=== PATIENT | female | born 1930 | race Caucasian/White ===

== ENCOUNTER 2017-05-29 11:09 | Outpatient (CLI) | payer MEDICARE, MEDICAID ==
--- NOTE | 2017-05-29 13:46 | MRI ---
MRI PELVIS WITHOUT CONTRAST: INDICATIONS: History of decubitus ulcer. Concern for osteomyelitis. COMPARISON: Sacrum and coccyx radiograph dated 05/22/2017. FINDINGS: There is prominent susceptibility artifact involving the sacral decubitus ulcer overlying the lower aspect of the pelvis that limits image detail. There is suggestion of abnormal increased T2 and dim inished T1 signal involving the lower sacral segments, as well as the coccyx, suspicious for changes of underlying osteomyelitis, but this is at the base of the decubitus bed. There is fluid seen ant erior to the lower sacrum, which may reflect reactive edema. The largest collection measures 1.9 cm . There is a small fibroid uterus in place. There is extensive edema involving the musculature of the right hip, which is nonspecific and may reflect a myositis. There is subcutaneous edema overlyi ng the right hip and right gluteal region, which may reflect sequela of cellulitis. There is a 7 mm left labial fold cyst, likely reflecting a Bartholin gland cyst, seen on image 5 of series 6. IMPRESSION: 1. Heavily limited MRI of the pelvis due to susceptibility artifact, likely related to the patient' s wound care products. Metallic zinc-based ointment could also product this susceptibility artifact , which limits image detail. 2. There is suspicion for some signal abnormality seen at the base of the decubitus ulcer of the lo wer sacrum and spine, suspicious for changes of osteomyelitis. There appear to be erosive changes i nvolving the bone on the comparison sacrum and coccyx radiograph. A dedicated CT of the pelvis with out contrast may be helpful to evaluate the bony architecture of the lower sacrum and coccyx to see if osteolysis is in fact present. 3. Myositis of the right hip abductors. 4. Subcutaneous edema involving the right gluteal region, suspicious for cellulitis. POS: [facility]
== END 2017-05-29 11:10 | disposition home or self-care (01) ==
LOC: MRI 11:09
PROVIDERS: ATTEND Family Medicine
DX: L89.154 Pressure ulcer of sacral region, stage 4 (principal); D64.9 Anemia, unspecified; E87.5 Hyperkalemia; M60.88 Other myositis, other site; R60.0 Localized edema
CPT/HCPCS: 72195

== ENCOUNTER 2017-05-30 10:46 | Inpatient (IN) | payer MEDICARE, MEDICAID ==
[2017-05-30 13:27] LABS: #Basophils 0.1 thou/uL (0.0-0.2); #Eosinphils 0.1 thou/uL (0.0-0.7); #Lymphocytes 1.1 thou/uL (1.20-3.40); #Monocytes 0.9 thou/uL (0.11-0.59); #Neutrophils 12.7 thou/uL (1.40-6.50); %Basophils 0.4 % (0.0-1.0); %Eosinophils 0.9 % (0.0-10.0); %Lymphocytes 7.2 % (21.0-51.0); %Monocytes 6.3 % (0.0-10.0); Hematocrit 30.5 % (36.0-47.0); Mean Platelet Volume 5.9 fL (7.4-10.4); Red Blood Cell (RBC) Count 2.97 mill/uL (4.20-5.40); White Blood Cell (WBC) Count 14.9 thou/uL (4.8-10.8)
[2017-05-30 13:49] LABS: Lactic Acid - Sepsis 0.8 mmol/L (0.5-2.2)
[2017-05-30 13:51] LABS: Anion Gap 13 mmol/L (10-20); BUN (Urea Nitrogen) 37 mg/dL (9.8-20.1); Calc. Creatinine Clearance 0 mL/min (70-130); Calcium 9.2 mg/dL (7.8-10.44); Carbon Dioxide 28 mmol/L (23-31); Chloride 101 mmol/L (98-107); Estimated GFR-MDRD 41
[2017-05-30] MEDS ORDERED: ISOVUE-370 76%-LOCM 1 ML ONE (16:03)
--- NOTE | 2017-05-30 17:37 | CT ---
CT PELVIS WITH CONTRAST: 05/30/17 HISTORY: 86-year-old female with sacral decubitus ulcer. The MRI study was very limited because of magnetic s usceptibility artifact due to hardware. FINDINGS: There is metallic left total hip replacement hardware, which cause streak artifact, degrading the CT images of the adjacent areas. In the region of signal abnormality of the sacrum and coccyx, there a re nonspecific heterogeneous sclerotic changes on this CT. No overt bone destruction is identified. The apparent MRI bone marrow signal abnormality there was just deep to a sacral decubitus ulcer in t hat location. Since no metal is identified on this CT in that region, it is suspected that the magne tic susceptibility artifact may have been caused by metallic material on the skin surface, such as z inc ointment, or a small metallic object that may have been on the skin surface during the MRI. This CT is also limited by the fact that there is severe osteopenia. There is multilevel severe degenera tive disc disease in the lower lumbar spine. No fracture or dislocation. Degenerative changes in the right hip are relatively mild. Mild soft tissue contusion or edema in the subcutaneous fat superfic ial to the right gluteal musculature. The urinary bladder has thin, normal gilman. It is distended. There is a well circumscribed, approxi mately 3 x 4.5 x 3.5 cm, mass with heterogeneous attenuation (low density and soft tissue density), within what appears to be the fundus of uterus. There is mixed T2 signal intensity in this lesion on the pelvic MRI. This was not present on CT of the pelvis of 05/12/2006. There are no CT of the pelvi s that are more recent than this. There are also no recent ultrasound studies of the pelvis. IMPRESSION: 1. Intrauterine mass. The appearance is atypical for leiomyoma (uterine fibroid). This raises t he possibility of an endometrial carcinoma surrounded by fluid within an expanded endometrial cavity . Recommend gynecology consultation 2. No definite evidence of osteomyelitis. 3. Osteopenia. 4. Status post total left hip replacement arthroplasty. 5. Severe lumbar spondylosis. POS: [facility]
[2017-05-30] MEDS ORDERED: Ondansetron ODT 4 MG TAB PO PRN (17:54)
[2017-05-30] MEDS ORDERED: HYDROcodone/Acetaminophen 5/325 mg Tablet PO PRN (17:54)
[2017-05-30] MEDS ORDERED: HYDROcodone/Acetaminophen 10/325 mg Tablet PO PRN (17:54)
[2017-05-30] MEDS ORDERED: Acetaminophen 325 MG TAB PO PRN (17:54)
[2017-05-30 18:15] VITALS: BMI 20.6
[2017-05-30] MEDS: Sodium Chloride 0.9% 1,000 ML IV SCH (18:45)
[2017-05-30] MEDS: Piperacillin/Tazobactam 3.375 GM in Sodium Chloride 0.9% 100 ML IVPB SCH (18:50)
[2017-05-30] MEDS ORDERED: Famotidine 20 MG TAB PO SCH (21:00)
[2017-05-30] MEDS: Ketoconazole 2% Cream 15 gm Tube TOP SCH (21:14)
--- NOTE | 2017-05-30 23:27 | HP ---
PRIMARY CARE PHYSICIAN: Dr. Young. CHIEF COMPLAINT: Wound infection. HISTORY OF PRESENT ILLNESS: Ms. Khan is an 86-year-old white female with the recent active past m edical history. She was initially admitted here on 04/04/2017 to 04/18/2017 after a fall and sustai sol the left hip fracture. She went to the operating room on 04/04/2017 for ORIF, and postoperative ly was complicated by acute respiratory failure and hypotension. She was ultimately discharged on 0 04/18/2017 to [facility], but was subsequently readmitted 04/24-04/30 for UTI with sepsis . She received IV antibiotics and was discharged back to the [facility] for continued rehabilitation until current. She completed a course of levofloxacin every other day due to chronic kidney dise ase and increased creatinine. During that second hospital stay, it was noted she had an unstageable sacral decubitus ulcer. Pictu res from that stay were reviewed. She subsequently has had increased pain to the area and enlargeme nt of the wound and ultimately has had a wound VAC placed. She is unsure of how long. Workup for the VAC included x-rays done about a week ago that showed severe osteopenia and inability to really see the sacrum. So, yesterday 05/29, she underwent MRI. MRI showed a mild or slight inc reased T2 and decreased T1 signal to the lower sacrum and coccyx, as well as a 1.9 cm presacral flui d collection. She had some right hip muscular edema and there was concern for infection, so she was sent to the Emergency Department for further treatment evaluation, surgical evaluation and ID consu lt. She denies any fevers or chills, chest pain or shortness of breath, no nausea or vomiting, no d iarrhea or constipation. She has had the C. diff recently, which she completed therapy for, has not had any diarrhea since . PAST MEDICAL HISTORY: 1. Hypertension. 2. Congestive heart failure, type unknown. Diastolic chronic. Ejection fraction in 04/2017 showe d an ejection fraction of 70% to 80% and grade 1-3 diastolic dysfunction with a hyperdynamic small l eft ventricle. 3. Chronic obstructive pulmonary disease. 4. History of recent Clostridium difficile. 5. Chronic kidney disease 3. 6. Moderate protein-calorie malnutrition. 7. Atrial fibrillation, paroxysmal. PAST SURGICAL HISTORY: Include; 1. Left hip repair on 04/04/2017. 2. Appendectomy and cholecystectomy remotely. HOME MEDICATIONS: Per the chart; 1. Iron sulfate 325 mg daily. 2. Megace 40 mg daily. 3. Protonix 40 mg daily. 4. Propranolol 20 mg p.o. b.i.d. 5. Vitamin D3 50,000 units daily. 6. Vitamin C 500 mg b.i.d. ALLERGIES: 1. CODEINE causes altered mental status. 2. FLAGYL made her nauseated. 3. MACROBID unknown. 4. MORPHINE caused her to be confused. 5. PENICILLIN G caused a rash 30+ years ago. 6. SULFA is listed, but she says she can take that fine. FAMILY HISTORY: Negative for clotting or bleeding disorder, no immune dysfunction. SOCIAL HISTORY: Negative for habits x3. She did use prior tobacco, but quit many years ago. She h as been living at home alone up until this most recent set of hospital stays. REVIEW OF SYSTEMS: Ten-point review of systems was performed, negative for all other systems except as stated as per HPI. PHYSICAL EXAMINATION: VITAL SIGNS: Temperature 97.0, pulse 95, blood pressure 136/66, respiratory rate 20, satting 99% on room air. GENERAL: She is awake. She is alert. She is oriented x3. She is a frail elderly white female who appears to be in no distress. HEENT: Normocephalic, atraumatic. Pupils equal, reactive bilaterally, mucous membranes are moist. She had no visible lesion or thrush. NECK: Supple, without lymphadenopathy, JVD, or thyromegaly. CHEST: Lungs are clear. She has no wheeze, no rales, no rhonchi with good air movement and symmetr ic chest excursion. CARDIOVASCULAR: Normal S1 and S2. No S3 or S4. No audible murmurs. ABDOMEN: Soft. It is nontender, nondistended. No masses or organomegaly with normoactive bowel so unds. EXTREMITIES: No cyanosis, no clubbing with trace bilateral extremity edema. SKIN: Warm, moist and well perfused. She does have an approximately 1.2 cm x 1.2 cm open sacral pr essure ulcer. It is approximately 1.6 cm deep and has approximately 1.4 cm undermining all the way around. The base has a pale pink granulation tissue and there is no palpable bone. There is no pur ulence and no necrosis. NEUROLOGIC: Cranial nerves II-XII are grossly intact without any focal neurologic deficits and norm al strength. MUSCULOSKELETAL: Left hip incision clean, dry and intact. There is no inflammation or erythema. T here is no palpable joint effusions. Other large joints appear normal, without any inflammation or joint effusions. LABORATORY DATA: Basic metabolic profile showed a potassium of 4.8 and creatinine of 1.24, which is actually good for her. Creatinine clearance is around 40-45. Total white blood cell count 14.9 up from 10.6 yesterday. Hemoglobin is 9.6 up from 8.5 yesterday as well. Lactic acid normal at 0.8 a nd platelets of 550,000. IMAGING DATA: On 05/29/2017, MRI showed a large sacral decubitus ulcer. There is lower sacral and coccygeal, increased T2 and decreased T1 signal. There is a fluid anterior to the lower sacrum appr oximately 1.9 cm in transverse diameter and there is a right hip muscular edema. ASSESSMENT AND PLAN: 1. Stage III to IV sacral decubitus ulcer. This is actually one of the cleanest sacral ulcers I rapp ve seen in a long time. There is no foul odor, no purulence, no necrosis. I cannot palpate bone. Does not look acutely infected. At this point, I have spoken with Dr. Lux with the Radiology, we will get a CT scan with contrast to better delineate the structures present. I have removed her wou nd VAC and will leave it off in the meantime. I initially has had spoken with Dr. Rosado, but after examining the wound, I do not think there is any surgical intervention needed at this point, I will follow up on the CT scan results and revisit this issue. 2. In the meantime, the patient received vancomycin in the ER; we will start her on Zosyn 3.375 gra ms IV q.6 hours. I do realize she has a listed PENICILLIN allergy, but I think it is long enough ag o and probably of little clinical significance, but will rechallenge her. 3. Hypertension. We will continue her home medications. 4. Congestive heart failure, diastolic, currently stable. 5. Chronic obstructive pulmonary disease, stable. 6. Recent Clostridium difficile: We will watch her for signs of diarrhea while on broad-spectrum a ntibiotics. 7. Chronic kidney disease 3, creatinine is currently stable. 8. Moderate protein-calorie malnutrition: Place her on a regular diet, we will add Ensure t.i.d. w ith meals and Jb b.i.d. to promote wound healing. 9. Atrial fibrillation, currently in normal sinus rhythm.
[2017-05-31] MEDS: Piperacillin/Tazobactam 3.375 GM in Sodium Chloride 0.9% 100 ML IVPB SCH ×3 (00:45→11:58)
[2017-05-31 05:50] LABS: #Basophils 0.1 thou/uL (0.0-0.2); #Eosinphils 0.2 thou/uL (0.0-0.7); #Lymphocytes 1.1 thou/uL (1.20-3.40); #Monocytes 0.8 thou/uL (0.11-0.59); %Basophils 0.5 % (0.0-1.0); %Eosinophils 1.6 % (0.0-10.0); %Lymphocytes 10.7 % (21.0-51.0); Mean Platelet Volume 6.1 fL (7.4-10.4); Red Blood Cell (RBC) Count 2.44 mill/uL (4.20-5.40); White Blood Cell (WBC) Count 10.1 thou/uL (4.8-10.8)
[2017-05-31 05:57] LABS: Anion Gap 9 mmol/L (10-20); BUN (Urea Nitrogen) 38 mg/dL (9.8-20.1); Calc. Creatinine Clearance 27 mL/min (70-130); Calcium 8.4 mg/dL (7.8-10.44); Carbon Dioxide 28 mmol/L (23-31); Chloride 104 mmol/L (98-107); Estimated GFR-MDRD 41
[2017-05-31] MEDS: Ketoconazole 2% Cream 15 gm Tube TOP SCH (08:13)
[2017-05-31] MEDS: Sodium Chloride 0.9% 1,000 ML IV SCH (08:15)
--- NOTE | 2017-05-31 10:25 | PDOC.EVN ---
Event Note - Event Note Event Note: addendum to history and physical dated 05/30/2017. Pt initially discharged form this hospital to [facility] and developed the pressure ulcer while there. Per discussion with Pool staff today, the pressure ulcer was well developed prior to her transfer there late april 2017.
[2017-05-31 13:41] VITALS: BP 143/59; TEMP 97.5
--- NOTE | 2017-05-31 14:23 | PDOC.PN ---
- Subjective Encounter Start Date: 05/31/17 Encounter Start Time: 07:30 Subjective: feels better, no sob -: responds well to verbal questions -: says she has been amb with PT at rehab/snf - Objective Resuscitation Status: Resuscitation Status FULL:Full Resuscitation MAR Reviewed: Yes Vital Signs & Weight: Vital Signs (12 hours) Temp Pulse Resp BP BP Pulse Ox 05/31/17 13:47 86 15 96 05/31/17 12:00 97.5 F L 86 16 143/59 H 96 05/31/17 10:26 92 16 99 05/31/17 08:00 98.2 F 92 20 166/69 H 99 05/31/17 04:00 97.7 F 88 16 131/69 97 Weight Weight 112 lb 12.8 oz Result Diagrams: 05/31/17 04:37 05/31/17 04:37 Phys Exam - Physical Examination HEENT: PERRLA, moist MMs Neck: no JVD, supple Respiratory: no wheezing, no rales Cardiovascular: RRR, no significant murmur Gastrointestinal: soft, non-tender, positive bowel sounds sacral decub stage 4 Musculoskeletal: no edema, pulses present Neurological: non-focal, moves all 4 limbs Dx/Plan (1) Sacral decubitus ulcer, stage IV Code(s): L89.154 - PRESSURE ULCER OF SACRAL REGION, STAGE 4 Status: Chronic Comment: POA (2) HTN (hypertension) Code(s): I10 - ESSENTIAL (PRIMARY) HYPERTENSION Status: Chronic Qualifiers: Hypertension type: essential hypertension Qualified Code(s): I10 - Essential (primary) hypertension (3) CHF (congestive heart failure) Code(s): I50.9 - HEART FAILURE, UNSPECIFIED Status: Chronic Qualifiers: Congestive heart failure type: diastolic (4) Physical deconditioning Code(s): R53.81 - OTHER MALAISE Status: Chronic (5) recent left hip orif Status: Chronic Comment: in mar 2017 - Plan d/w , decub is clean with no need for debribedement -: to continue wound vac to ulcer -: may dc to snf/rehab -: oral iron, got iv fluids with dilutional effect, Hb of 8g -: is slowly progressing with PT, states she is amb with PT * .
--- NOTE | 2017-06-01 00:44 | DIS ---
DATE OF ADMISSION: 05/30/2017 DATE OF DISCHARGE: 05/31/2017 DISCHARGE DISPOSITION: To [facility]. PRIMARY DISCHARGE DIAGNOSES: Initial suspicion for sacral decubitus, stage IV, flareup, ruled out; initial suspicion for sepsis, ruled out. SECONDARY DISCHARGE DIAGNOSES: Hypertension; history of CHF with diastolic dysfunction; severe deco nditioning, which is resolving; recent left hip ORIF done in 03/2017; acute kidney injury, resolving ; and likely chronic anemia. PROCEDURES DONE DURING HOSPITALIZATION: The patient has had pelvic CAT scan done, which showed intr auterine mass, which was not typical of fibroids. There was no definite evidence of osteomyelitis. There was osteopenia seen, severe lumbar spondylosis was seen. Preliminary blood cultures x2, no g rowth; had a white count of 14 with discharge numbers of 10; H\T\H on the day of discharge 8 and 25; platelet count 454. Discharge BUN and creatinine 38 and 1.25. Lactic acid was 0.8. Patient has h ad pelvic MRI done prior to arrival here, which was limited due to susceptibility artifact. There w as suspicion of some signal abnormality seen at the base of the decubitus ulcer on the lower sacrum and spine suspicious for changes of osteomyelitis. There also appeared to be erosive changes involv ing the bone on the comparison sacrum and coccyx radiographs, myositis of the right hip abductors we re seen with also subcu edema involving the right gluteal region suspicious for cellulitis. DISCHARGE MEDICATIONS: Vitamin C 500 mg p.o. twice daily, calcium 600 mg p.o. daily, ferrous sulfat e 325 mg p.o. daily, Lasix 20 mg p.o. daily, Adrian p.r.n. for pain, DuoNebs q.6 hourly p.r.n., Megac e 400 mg p.o. daily, multivitamin with minerals 1 tab daily, Protonix 40 mg p.o. daily, propranolol extended release 80 mg p.o. daily, Florastor 250 mg p.o. twice daily. ALLERGIES: CODEINE, FLAGYL, MORPHINE, SULFA, MACROBID. INPATIENT CONSULTS: Dr. Agee for General Surgery. BRIEF COURSE DURING HOSPITALIZATION: The patient initially got transferred from [facility] abnormal MRI findings on her sacral decubitus for possible surgical evaluation and ID consultation . She has had a subsequent CT of the pelvic structures done. She was evaluated by Dr. Agee, who h ad seen her previously in March when she was here after trauma with left hip fracture. Her sacral decubitus, stage IV was noted to be clean and did not require any debridement by Dr. Agee. Her ini tial elevated white count likely was due to margination. Again, her true H\T\H likely is around 8 g annalisa. She has been given a prescription for ferrous sulfate to be continued at [facility]. P rior to coming here, the patient was ambulating with physical therapy and has made some straights wi th deconditioning. She was hemodynamically stable and has been cleared by Dr. Agee for discharge b ack to the longterm. She has to apply her wound VAC as before. She has to continue her wound c are as before. No antibiotics were prescribed per General Surgery advice. She is hemodynamically s table and will be shortly discharged back to longterm. A total of 35 minutes was spent on discharge plan and coordinating with the specialists. Please see a [email or web address] documentation on [email or web address] for the day of discharge.
== END 2017-05-31 15:40 | DRG 592 ==
LOC: ERS 10:46 → T4-A 15:46
PROVIDERS: ADMIT Internal Medicine; ATTEND Internal Medicine
DX: L89.154 Pressure ulcer of sacral region, stage 4 (principal); N17.9 Acute kidney failure, unspecified; E44.0 Moderate protein-calorie malnutrition; I48.0 Paroxysmal atrial fibrillation; I13.0 Hypertensive heart and chronic kidney disease with heart failure and stage 1 through stage 4 chronic kidney disease, or unspecified chronic kidney disease; I50.32 Chronic diastolic (congestive) heart failure; J44.9 Chronic obstructive pulmonary disease, unspecified; D63.1 Anemia in chronic kidney disease; L03.317 Cellulitis of buttock; E78.5 Hyperlipidemia, unspecified; M85.80 Other specified disorders of bone density and structure, unspecified site; N18.3 Chronic kidney disease, stage 3 (moderate); Z87.19 Personal history of other diseases of the digestive system; Z88.0 Allergy status to penicillin; Z68.20 Body mass index [BMI] 20.0-20.9, adult; Z96.642 Presence of left artificial hip joint; Z88.1 Allergy status to other antibiotic agents; Z88.5 Allergy status to narcotic agent; Z88.2 Allergy status to sulfonamides; R25.1 Tremor, unspecified; Z87.891 Personal history of nicotine dependence; G47.00 Insomnia, unspecified; R53.81 Other malaise
CPT/HCPCS: 36415; 72193; 72195; 80048; 83605; 85025; 87040; 94640; 96365; J2543; J3370; J7050; J7620

== ENCOUNTER → 2017-07-06 | Outpatient (CLI) | payer MEDICARE, MEDICAID ==
--- NOTE | 2017-07-04 11:09 | HP ---
DATE OF SERVICE: 07/03/2017 HISTORY OF PRESENT ILLNESS: Ms. Sonja Khan is a very pleasant 86-year-old accompanied by her s on who presents to the Wound Center for evaluation of a sacral pressure ulceration. The patient's s on states that the ulceration has been present for approximately 3 months. He states that the press ure ulceration was first noted when the patient was in the CCU after left hip surgery. The patient' s son states that Ms. Khan has been receiving treatment with the wound VAC for 30-45 days. Dressi ng changes are being performed at [facility]. The patient was referred to the Wound Center by Dr. Brown Young. PAST MEDICAL HISTORY: 1. Hypertension. 2. Diverticulosis. 3. Low back pain. 4. Degenerative joint disease. 5. Benign essential tremor. 6. Supraventricular tachycardia status post ablation. 7. Chronic obstructive pulmonary disease. 8. Atrial fibrillation. 9. Diastolic congestive heart failure. 10. Chronic kidney disease stage 3. 11. Protein calorie malnutrition - moderate. PAST SURGICAL HISTORY: 1. Cholecystectomy. 2. Appendectomy. 3. . 4. Cataract surgery on the right. 5. Cataract surgery on the left. 6. Left hip hemiarthroplasty 04/04/2017. MEDICATIONS: 1. Acetaminophen 325 mg 2 tablets p.o. q.4h. p.r.n. pain. 2. Arginaid packet 1 packet by mouth every day. 3. Debrox solution 5 drops in both ears b.i.d. p.r.n. cerumen excess. 4. DuoNeb solution q.6h. or q.4h. p.r.n. wheezing. 5. Ferrous sulfate 325 mg 1 p.o. daily. 6. Florastor 250 mg 1 p.o. b.i.d. 7. Lasix 40 mg 1 p.o. daily. 8. Megestrol acetate suspension 40 mg per mL, 10 mL p.o. daily. 9. Melatonin 3 mg 2 tablets p.o. q.24 h p.r.n. insomnia. 10. Multivitamin 1 tablet p.o. daily. 11. Russell 5/325 one p.o. q.4h. p.r.n. severe pain. 12. Pantoprazole 40 mg p.o. day. 13. Propranolol 80 mg 1 p.o. daily. 14. Terbinafine cream 1% applied to toenails of both feet at bedtime x8 weeks. 15. Vitamin C 500 mg p.o. b.i.d. 16. Vitamin D3 5,000 units 1 p.o. q. Monday. ALLERGIES: CODEINE, MORPHINE SULFATE, METRONIDAZOLE, NITROFURANTOIN, PENICILLIN, SULFA. SOCIAL HISTORY: Significant for tobacco use of 1 pack of cigarettes per day since the patient's 20s . The patient states that she stopped smoking at age 61. The patient admits to only the rare consu mption of alcohol in the past. FAMILY HISTORY: Negative for diabetes mellitus or coronary artery disease. PHYSICAL EXAMINATION: VITAL SIGNS: Temperature 97.4, pulse 74, respirations 18, blood pressure 152/70. GENERAL: An 86-year-old female lying on stretcher in examination room in no acute distress. HEENT: Normocephalic, atraumatic. NECK: No nuchal rigidity. CHEST: Clear to auscultation. CARDIAC: Regular rate and rhythm. ABDOMEN: Soft. BACK: A sacral pressure ulceration is present which measures approximately 3.5 x 3.0 cm. Undermini ng at the 12 o'clock position is present and is approximately 3.5 cm in length. Poor quality granul ation tissue is present within the wound margins. No purulent drainage is associated with the wound . No cellulitis of the sacral region is appreciated. No maceration of the skin of the periwound is noted. EXTREMITIES: No clubbing or cyanosis. ASSESSMENT AND PLAN: 1. Sacral pressure ulceration as described above. Negative pressure therapy will be continued with dressing changes of the wound VAC 3 times per week at [facility]. Orders will be transmitted to [facility] for offloading of the pressure ulceration with position changes q.2h. Albumin and prealbumin levels will also be obtained. I have explained the importance of offloading and nutr ition in achieving the healing of the pressure ulceration with both the patient and her son. I will see Ms. Khan again in 2 weeks. No antibiotics will be prescribed today based upon the appearance of the wound. Consideration will be given to treatment with a biological dressing such as MatriSte m or [place] Ultra in conjunction with negative pressure therapy once the patient's nutritional status and offloading has been made more optimal. 2. Hypertension. 3. Diverticulosis. 4. Low back pain. 5. Degenerative joint disease. 6. Benign essential tremor. 7. Supraventricular tachycardia status post ablation. 8. Chronic obstructive pulmonary disease. 9. Atrial fibrillation. 10. Diastolic congestive heart failure. 11. Chronic kidney disease stage 3. 12. Protein calorie malnutrition, moderate.
[~2017-07-06] MED LIST: Sodium Chloride 0.9% 15 ML NEB ONE
== END ==
LOC: WCC 11:51
PROVIDERS: ATTEND Family Medicine
DX: L89.159 Pressure ulcer of sacral region, unspecified stage (principal); I13.0 Hypertensive heart and chronic kidney disease with heart failure and stage 1 through stage 4 chronic kidney disease, or unspecified chronic kidney disease; I50.30 Unspecified diastolic (congestive) heart failure; N18.3 Chronic kidney disease, stage 3 (moderate); K57.90 Diverticulosis of intestine, part unspecified, without perforation or abscess without bleeding; J44.9 Chronic obstructive pulmonary disease, unspecified; I48.91 Unspecified atrial fibrillation; G25.0 Essential tremor; M54.5 Low back pain; M19.90 Unspecified osteoarthritis, unspecified site; E44.0 Moderate protein-calorie malnutrition
CPT/HCPCS: 97139; 97602; G0463; 99203; A4218

== ENCOUNTER 2017-08-07 13:22 | Outpatient (CLI) | payer MEDICARE, MEDICAID ==
--- NOTE | 2017-08-07 15:01 | PRG ---
DATE OF SERVICE: 08/07/2017 HISTORY: Ms. Sonja Khan is a very pleasant 86-year-old accompanied by her son who presents to [facility] for evaluation of a sacral pressure ulceration. The patient's son previously stated that the ulceration had been present for approximately 3 months when Ms. Khan initially presented [facility] the Wound Center. The patient's son stated that the pressure ulceration was first noted when the p atient was in the CCU after left hip surgery. At the time of the patient's initial presentation to [facility], the patient's son stated that Ms. Khan had been receiving treatment with the wound VAC for 30-45 days. The patient was receiving dressing changes of the wound VAC at [facility] . Ms. Khan was referred to the Wound Center by Dr. Brown Young. PHYSICAL EXAMINATION: VITAL SIGNS: Temperature 97.6, pulse 77, respirations 16, blood pressure 114/54. BACK: A sacral pressure ulceration is present, which measures approximately 2.5 x 2.5 cm. The dimen sions of the wound at the time of the patient's last visit were approximately 3.5 x 3.0 cm. Undermin ing at the 12 o'clock position is present and is approximately 2.5 cm in length. At the time of the patient's last visit, undermining at the 12 o'clock position was approximately 3.5 cm in length. Gra nulation tissue is present within the wound margins albeit of poor quality. No purulent drainage is associated with the wound. No cellulitis of the sacral region is appreciated. No maceration of the skin of the periwound is noted. ASSESSMENT AND PLAN: 1. Sacral pressure ulceration as described above. Negative pressure therapy will be continued with dressing changes of the wound VAC 3 times per week at [facility]. Orders will again be transmi tted to [facility] for offloading of the pressure ulceration with position changes q.2 hours. A lbumin and prealbumin levels will also be obtained. Again, I have explained the importance of offloa ding and nutrition in achieving the healing of the pressure ulceration with both the patient and her son. I will see Ms. Khan again in 4 weeks. The patient's son states that Ms. Khan is receiving radiation therapy with the sacral pressure ulceration contained within the field of radiation. 2. Hypertension. 3. Diverticulosis. 4. Low back pain. 5. Degenerative joint disease. 6. Benign essential tremor. 7. Supraventricular tachycardia, status post ablation. 8. Chronic obstructive pulmonary disease. 9. Atrial fibrillation. 10. Diastolic congestive heart failure. 11. Chronic kidney disease stage 3. 12. Protein calorie malnutrition, moderate.
[2017-08-07] MEDS ORDERED: Sodium Chloride 0.9% 15 ML NEB ONE (17:04)
== END 2017-08-07 13:23 | disposition home or self-care (01) ==
LOC: WCC 13:22
PROVIDERS: ATTEND Family Medicine
DX: L89.159 Pressure ulcer of sacral region, unspecified stage (principal); I13.0 Hypertensive heart and chronic kidney disease with heart failure and stage 1 through stage 4 chronic kidney disease, or unspecified chronic kidney disease; N18.3 Chronic kidney disease, stage 3 (moderate); I50.30 Unspecified diastolic (congestive) heart failure; K57.90 Diverticulosis of intestine, part unspecified, without perforation or abscess without bleeding; I48.91 Unspecified atrial fibrillation; J44.9 Chronic obstructive pulmonary disease, unspecified; M54.5 Low back pain; M19.90 Unspecified osteoarthritis, unspecified site; G25.0 Essential tremor; I47.1 Supraventricular tachycardia; E44.0 Moderate protein-calorie malnutrition
CPT/HCPCS: 77014; 77412; 85025; 97605; A4218

== ENCOUNTER 2017-09-04 13:31 | Outpatient (CLI) | payer MEDICARE, MEDICAID ==
--- NOTE | 2017-09-04 15:17 | PRG ---
DATE OF SERVICE: 09/04/2017 HISTORY: Ms. Sonja Khan is a very pleasant 86-year-old, who presents to the [facility] for ev aluation of a sacral pressure ulceration. The patient's son previously stated that the ulceration rapp d been present for approximately 3 months when Ms. Khan initially presented to the Wound Center. T he patient's son stated that the pressure ulceration was first noted when the patient was in the CCU after left hip surgery. At the time of the patient's initial presentation to the Wound Center, the p angel's son stated that Ms. Khan had been receiving treatment with the wound VAC for 30-45 days. The patient was receiving dressing changes of the wound VAC at [facility]. Ms. Khan was refe rred to the Wound Center by Dr. Brown Young. Ms. Khan is now residing at [facility] ([facility] She continues to receive negative pressure therapy. PHYSICAL EXAMINATION: VITAL SIGNS: Temperature 98.0, pulse 87, respirations 18, blood pressure 109/53. BACK: A sacral ulceration is present, which measures approximately 2.2 x 2.5 cm. The dimensions of the wound at the time of the patient's visit on 08/07/2017 were approximately 2.5 x 2.5 cm. Undermin ing is still associated with the sacral pressure ulceration. Granulation tissue is present within th e wound margins. No purulent drainage is associated with the wound. No cellulitis of the sacral reg ion is appreciated. No maceration of the skin of the periwound is noted. Irritation of the skin of the periwound from the VAC drape is noted on exam today. ASSESSMENT AND PLAN: 1. Sacral pressure ulceration as described above. Negative pressure therapy will be continued with dressing changes of the wound VAC 3 times per week at [facility]. Orders will be transmitted to [facility] and [facility] for offloading of the pressure ulceratio n with position changes q.2 hours. Albumin and prealbumin levels will also be obtained. Albumin and prealbumin levels from 08/09/2017 returned 2.8 and 13.0 respectively. A nutrition consult will also be obtained. Once again, I have explained the importance of offloading and nutrition in achieving t he healing of the pressure ulceration with the patient. I will see Ms. Khan again in 4 weeks. The patient's son previously stated that Ms. Khan had been receiving radiation therapy with the sacral pressure ulceration contained within the field of irradiation. 2. Hypertension. 3. Diverticulosis. 4. Low back pain. 5. Degenerative joint disease. 6. Benign essential tremor. 7. Supraventricular tachycardia, status post ablation. 8. Chronic obstructive pulmonary disease. 9. Atrial fibrillation. 10. Diastolic congestive heart failure. 11. Chronic kidney disease, stage 3. 12. Protein-calorie malnutrition, moderate.
== END 2017-09-04 13:32 | disposition home or self-care (01) ==
LOC: WCC 13:31
PROVIDERS: ATTEND Family Medicine
DX: L89.159 Pressure ulcer of sacral region, unspecified stage (principal); I13.0 Hypertensive heart and chronic kidney disease with heart failure and stage 1 through stage 4 chronic kidney disease, or unspecified chronic kidney disease; I50.32 Chronic diastolic (congestive) heart failure; N18.3 Chronic kidney disease, stage 3 (moderate); J44.9 Chronic obstructive pulmonary disease, unspecified; I47.1 Supraventricular tachycardia; I48.91 Unspecified atrial fibrillation; M54.5 Low back pain; G25.0 Essential tremor; E44.0 Moderate protein-calorie malnutrition; K57.90 Diverticulosis of intestine, part unspecified, without perforation or abscess without bleeding; M19.90 Unspecified osteoarthritis, unspecified site
CPT/HCPCS: 97605

== ENCOUNTER 2017-09-27 17:58 | Emergency (ER) | payer MEDICARE, MEDICAID ==
[2017-09-27] MEDS ORDERED: Cefdinir 300 MG CAP PO SCH (19:15)
== END 2017-09-27 21:47 | disposition home or self-care (01) ==
LOC: ERS 17:58
DX: N39.0 Urinary tract infection, site not specified (principal); T36.95XA Adverse effect of unspecified systemic antibiotic, initial encounter; I11.0 Hypertensive heart disease with heart failure; I50.9 Heart failure, unspecified; J44.9 Chronic obstructive pulmonary disease, unspecified; I47.1 Supraventricular tachycardia; M19.90 Unspecified osteoarthritis, unspecified site; E78.00 Pure hypercholesterolemia, unspecified; K21.9 Gastro-esophageal reflux disease without esophagitis; Z87.891 Personal history of nicotine dependence
CPT/HCPCS: 99285

== ENCOUNTER 2017-10-02 13:40 | Outpatient (CLI) | payer MEDICARE, MEDICAID ==
--- NOTE | 2017-10-02 15:39 | PRG ---
DATE OF SERVICE: 10/02/2017 HISTORY: Ms. Sonja Khan is a very pleasant 86-year-old who presents to the Wound Center for evaluation of a sacral pressure ulceration. The patient's son previously stated that the ulceration had been present for approximately 3 months when Ms. Khan initially presented to the Wound Center. The patient's son stated that the pressure ulceration was first noted when the patient was in the CCU after left hip surgery. At the time of the patient's initial presentation to the Wound Center, the patient's son stated that Ms. Khan had been receiving treatment with the wound VAC for 30-45 days. The patient was receiving dressing changes of the wound VAC at [facility]. Ms. Khan was referred to the Wound Center by Dr. Brown Young. Ms. Khan is now residing at [facility]. She continues to receive negative pressure therapy. PHYSICAL EXAMINATION: VITAL SIGNS: Temperature 97.6, pulse 73, respirations 17, blood pressure 100/ 57. BACK: A sacral ulceration is present which measures approximately 2.6 x 3.0 cm. The dimensions of the wound at the time of the patient's visit on 2017 were approximately 2.2 x 2.5 cm. A clean non-granulating wound is present on exam today. No purulent drainage is associated with the wound. No erythema of the skin surrounding the wound is present. No maceration of the skin of the periwound is noted. ASSESSMENT AND PLAN: 1. Sacral pressure ulceration as described above. Negative pressure therapy will be continued with dressing changes of the wound VAC 3 times per week at [facility]. Orders will be transmitted to [facility] for Promogran to the wound bed at the time of wound VAC dressing changes. Orders will also be transmitted to [facility] for offloading of the pressure ulceration with position changes q.2 hours. Albumin and prealbumin levels from 09/25/2017 returned 2.3 and 16.0 respectively. A Nutrition consult was previously obtained. Once again, I have explained the importance of offloading and nutrition in achieving the healing of the pressure ulceration with the patient and her son. I will see Ms. Khan again in four weeks. The patient's son previously stated that Ms. Khan had been receiving radiation therapy with the sacral pressure ulceration contained within the field of radiation. 2. Hypertension. 3. Diverticulosis. 4. Low back pain. 5. Degenerative joint disease. 6. Benign essential tremor. 7. Supraventricular tachycardia, status post ablation. 8. Chronic obstructive pulmonary disease. 9. Atrial fibrillation. 10. Diastolic congestive heart failure. 11. Chronic kidney disease stage 3. 12. Protein-calorie malnutrition, moderate. MTDD
== END 2017-10-02 13:41 | disposition home or self-care (01) ==
LOC: WCC 13:40
PROVIDERS: ATTEND Family Medicine
DX: L89.159 Pressure ulcer of sacral region, unspecified stage (principal); K57.90 Diverticulosis of intestine, part unspecified, without perforation or abscess without bleeding; M54.5 Low back pain; M19.90 Unspecified osteoarthritis, unspecified site; G25.0 Essential tremor; I97.89 Other postprocedural complications and disorders of the circulatory system, not elsewhere classified; I47.1 Supraventricular tachycardia; J44.9 Chronic obstructive pulmonary disease, unspecified; I48.91 Unspecified atrial fibrillation; I13.0 Hypertensive heart and chronic kidney disease with heart failure and stage 1 through stage 4 chronic kidney disease, or unspecified chronic kidney disease; I50.30 Unspecified diastolic (congestive) heart failure; N18.3 Chronic kidney disease, stage 3 (moderate); E44.0 Moderate protein-calorie malnutrition
CPT/HCPCS: 97605; A4218

== ENCOUNTER 2017-10-18 10:36 | Outpatient (CLI) | payer MEDICARE, MEDICAID ==
--- NOTE | 2017-10-18 14:13 | PRG ---
DATE OF SERVICE: 10/18/2017 HISTORY: Ms. Sonja Khan is a very pleasant 86-year-old, who presents to the Wound Center for ev aluation of a sacral pressure ulceration. The patient's son previously stated that the ulceration rpap d been present for approximately 3 months when Ms. Khan initially presented to the Wound Center. T he patient's son stated that the pressure ulceration was first noted when the patient was in the CCU after left hip surgery. At the time of the patient's initial presentation to the Wound Center, the p angel's son stated that Ms. Khan had been receiving treatment with the wound VAC for 30-45 days. The patient was receiving dressing changes of the wound VAC at [facility]. Ms. Khan was refe rred to the Wound Center by Dr. Brown Young. The patient is now residing at [facility]. The patient continues to receive negative pressure therapy. PHYSICAL EXAMINATION: VITAL SIGNS: Temperature 97.6, pulse 93, respirations 18, blood pressure 106/54. BACK: A sacral ulceration is present, which measures approximately 3.0 x 3.0 cm. The dimensions of the wound at the time of the patient's visit on 10/02/2017 were approximately 2.6 x 3.0 cm. Bone is palpable on exam today within the wound margins. No purulent drainage is associated with the wound. No erythema of the skin surrounding the wound is present. No maceration of the skin of the periwoun d is noted. ASSESSMENT AND PLAN: 1. Sacral pressure ulceration as described above. Plain films of the pelvis will be obtained today to look for findings suggestive of osteomyelitis. Orders will also be transmitted to [facility] for offloading of the pressure ulceration with position changes q.2 hours. I have again explained the importance of nutrition in achieving the healing of the pressure ulceration with the patient. I will see Ms. Khan again in 4 weeks. The patient's son previously stated that Ms. Khan had been receiving radiation therapy with the sacral pressure ulceration contained within the field of radiation. 2. Hypertension. 3. Diverticulosis. 4. Low back pain. 5. Degenerative joint disease. 6. Benign essential tremor. 7. Supraventricular tachycardia, status post ablation. 8. Chronic obstructive pulmonary disease. 9. Atrial fibrillation. 10. Diastolic congestive heart failure. 11. Chronic kidney disease, stage 3. 12. Protein-calorie malnutrition, moderate.
[2017-10-18] MEDS ORDERED: Lidocaine 2% Jelly 5 ML TUBE ONE (14:30)
[2017-10-18] MEDS ORDERED: Sodium Chloride 0.9% 15 ML NEB ONE (14:30)
== END 2017-10-18 10:37 | disposition home or self-care (01) ==
LOC: WCC 10:36
PROVIDERS: ATTEND Family Medicine
DX: L89.159 Pressure ulcer of sacral region, unspecified stage (principal); E11.22 Type 2 diabetes mellitus with diabetic chronic kidney disease; E11.69 Type 2 diabetes mellitus with other specified complication; I13.0 Hypertensive heart and chronic kidney disease with heart failure and stage 1 through stage 4 chronic kidney disease, or unspecified chronic kidney disease; N18.3 Chronic kidney disease, stage 3 (moderate); K57.90 Diverticulosis of intestine, part unspecified, without perforation or abscess without bleeding; M54.5 Low back pain; M19.90 Unspecified osteoarthritis, unspecified site; G25.0 Essential tremor; I97.89 Other postprocedural complications and disorders of the circulatory system, not elsewhere classified; I47.1 Supraventricular tachycardia; J44.9 Chronic obstructive pulmonary disease, unspecified; I48.91 Unspecified atrial fibrillation; I50.30 Unspecified diastolic (congestive) heart failure; E44.0 Moderate protein-calorie malnutrition
CPT/HCPCS: 97602; A4218

== ENCOUNTER 2017-10-18 13:30 | Outpatient (CLI) | payer MEDICARE, MEDICAID ==
--- NOTE | 2017-10-18 15:21 | RAD ---
AP PELVIS: HISTORY: Chronic sacralization. FINDINGS: There are postop changes of a left femoral head prosthesis in good position and alignment. No fractu re, dislocation, or bony destruction is seen. There are degenerative changes in the lower lumbar spi ne. If there is concern for osteomyelitis, further evaluation with MRI should be performed. POS: C
== END 2017-10-18 13:31 | disposition home or self-care (01) ==
LOC: RAD 13:30
PROVIDERS: ATTEND Family Medicine
DX: L89.159 Pressure ulcer of sacral region, unspecified stage (principal)
CPT/HCPCS: 72170

== ENCOUNTER 2017-11-08 10:57 | Outpatient (CLI) | payer MEDICARE, MEDICAID ==
--- NOTE | 2017-11-08 12:35 | PRG ---
DATE OF SERVICE: 11/08/2017 HISTORY: Ms. Sonja Khan is a very pleasant 86-year-old who presents to the Wound Center for prasanna luation of sacral pressure ulceration. The patient's son previously stated that the ulceration had b een present for approximately 3 months when Ms. Khan initially presented to the Wound Center. The patient's son stated that the pressure ulceration was first noted when the patient was in the CCU aft er left hip surgery. At the time of the patient's initial presentation to the Wound Center, the eduardo ent's son stated that Ms. Khan had been receiving treatment with the wound VAC for 30-45 days. The patient was receiving dressing changes of the wound VAC at [facility]. Ms. Khan was referre d to the Wound Center by Dr. Brown Young. The patient is now residing at [facility]. Ms. Khan continues to receive negative pressure therapy. PHYSICAL EXAMINATION: VITAL SIGNS: Temperature 97.5, pulse 83, respirations 18, blood pressure 124/59. BACK: A sacral ulceration is present which measures approximately 3.0 x 3.5 cm. The dimensions of t he wound at the time of the patient's visit on 10/18/2017 were approximately 3.0 x 3.0 cm. Bone is a gain palpable on exam today within the wound margins. No purulent drainage is associated with the wo und. No erythema of the skin surrounding the wound is present. No maceration of the skin of the per iwound is noted. ASSESSMENT AND PLAN: 1. Sacral pressure ulceration as described above. Apparently, the patient declined MRI of the pelvi s and imaging after being brought to imaging for MRI of the pelvis to look for findings suggestive of osteomyelitis. Orders will again be transmitted to [facility] and [facility] for offloa ding of the pressure ulceration with position changes q.2 hours. I have discussed the treatment plan with the patient's wound care nurse. I will also discuss the treatment plan with nutrition at [facility]. I will see Ms. Khan again in four weeks. The patient's son prev iously stated that Ms. Khan had been receiving radiation therapy with the sacral pressure ulceratio n contained within the field of irradiation. The patient's wound care nurse states that Ms. Khan w as unable to tolerate a trial of Pro-Stat. She is now receiving a trial of Arginaid. 2. Hypertension. 3. Diverticulosis. 4. Low back pain. 5. Degenerative joint disease. 6. Benign essential tremor. 7. Supraventricular tachycardia, status post ablation. 8. Chronic obstructive pulmonary disease. 9. Atrial fibrillation. 10. Diastolic congestive heart failure. 11. Chronic kidney disease stage 3. 12. Protein calorie malnutrition, moderate.
[2017-11-10] MEDS ORDERED: Lidocaine 2% Jelly 5 ML TUBE ONE (12:28)
[2017-11-10] MEDS ORDERED: Sodium Chloride 0.9% 15 ML NEB ONE (12:28)
== END 2017-11-08 10:58 | disposition home or self-care (01) ==
LOC: WCC 10:57
PROVIDERS: ATTEND Family Medicine
DX: L89.159 Pressure ulcer of sacral region, unspecified stage (principal); I13.0 Hypertensive heart and chronic kidney disease with heart failure and stage 1 through stage 4 chronic kidney disease, or unspecified chronic kidney disease; I50.30 Unspecified diastolic (congestive) heart failure; N18.3 Chronic kidney disease, stage 3 (moderate); K57.90 Diverticulosis of intestine, part unspecified, without perforation or abscess without bleeding; M54.5 Low back pain; M19.90 Unspecified osteoarthritis, unspecified site; I47.1 Supraventricular tachycardia; I48.91 Unspecified atrial fibrillation; J44.9 Chronic obstructive pulmonary disease, unspecified; G25.0 Essential tremor; E46 Unspecified protein-calorie malnutrition
CPT/HCPCS: 97605

== ENCOUNTER 2017-12-20 11:47 | Inpatient (IN) | payer MEDICARE, MEDICAID ==
[2017-12-20 12:24] LABS: #Eosinphils 0.6 thou/uL (0.0-0.7); #Lymphocytes 0.8 thou/uL (1.20-3.40); #Neutrophils 7.4 thou/uL (1.40-6.50); %Basophils 0.4 % (0.0-1.0); %Eosinophils 6.4 % (0.0-10.0); %Lymphocytes 8.1 % (21.0-51.0); %Monocytes 9.8 % (0.0-10.0); %Neutrophils 75.3 % (42.0-75.0); Hemoglobin 9.8 g/dL (12.0-16.0); Mean Corpuscular HGB CONC 31.5 g/dL (32.0-36.0); Mean Corpuscular Hemoglobin 31.7 pg (27.0-31.0); Mean Platelet Volume 5.7 fL (7.4-10.4); Platelet Count 693 thou/uL (130-400); RBC Distribution Width 13.8 % (11.5-14.5); Red Blood Cell (RBC) Count 3.08 mill/uL (4.20-5.40); White Blood Cell (WBC) Count 9.8 thou/uL (4.8-10.8)
[2017-12-20 12:44] LABS: Bilirubin Negative (Negative); Blood, Urine Moderate (Negative); Clarity TURBID (Clear); Glucose, Urine (Dipstick) Negative (Negative); Leukocyte Large (Negative); Nitrite Negative (Negative); Protein, Urine (Dipstick) Trace mg/dL (Neg-Trace); Urobilinogen 0.2 mg/dL (0.2-1.0)
[2017-12-20 12:47] LABS: ALT (SGPT) 8 U/L (8-55); Albumin 3.2 g/dL (3.4-4.8); Alkaline Phosphatase 44 U/L (40-150); Anion Gap 14 mmol/L (10-20); BUN (Urea Nitrogen) 43 mg/dL (9.8-20.1); Bilirubin, Total 0.3 mg/dL (0.2-1.2); CK (CPK) 22 U/L (29-168); Calc. Creatinine Clearance 0 mL/min (70-130); Calcium 9.8 mg/dL (7.8-10.44); Carbon Dioxide 27 mmol/L (23-31); Chloride 103 mmol/L (98-107); Estimated GFR-MDRD 28; Globulin 3.4 g/dL (2.4-3.5); Glucose 97 mg/dL (83-110); Potassium 4.7 mmol/L (3.5-5.1); Protein, Total 6.6 g/dL (6.0-8.3); Sodium 139 mmol/L (136-145)
[2017-12-20 12:49] LABS: Bacteria/HPF 2+ HPF (None Seen); Hyaline Casts/LPF 7-10 HYALINE CAST LPF (0-3 Hyaline); Squamous Epithelial 0-3 HPF (0-3)
[2017-12-20 12:50] LABS: Troponin I Less than 0.010 ng/mL (< 0.028)
[2017-12-20 12:55] LABS: Pathc Cast-AUWi Flag 3.04 (0-2.49); Yeast-AUWi Flag 103.4 (0-25.0)
[2017-12-20 12:58] LABS: AST (SGOT) 11 U/L (5-34)
[2017-12-20 13:11] LABS: Other Casts/LPF None Seen LPF (0-3 Hyaline); Yeast-All Forms 1+ HPF (None Seen)
--- NOTE | 2017-12-20 14:20 | RAD ---
LEFT HIP 2 VIEWS: HISTORY: Left hip pain. COMPARISON: 04/04/17. FINDINGS: The left hip prosthesis appears unchanged from prior exam and appears in adequate position. No loose torsten. No acute fracture. IMPRESSION: No acute finding. POS: NATALY
--- NOTE | 2017-12-20 14:21 | RAD ---
PORTABLE CHEST 1 VIEW: DATE: 12/20/17. TIME: 1:04 p.m. HISTORY: Altered mental status, fall. FINDINGS: Comparison is made with the exam of 05/05/17. The heart size is normal. The aorta is tortuous. The lungs are expanded without focal areas of cons olidation, pneumothorax, alexandru pulmonary edema, or pleural effusions. IMPRESSION: No acute process. POS: SERA
--- NOTE | 2017-12-20 14:37 | CT ---
CT BRAIN NONCONTRAST: HISTORY: 87-year-old female with altered mental status. FINDINGS: There is no midline shift or any other mass effect. There is no evidence of acute intracranial hemor rhage, large cortical infarct, obstructive hydrocephalus, or extraaxial fluid collection. The calvar ium is intact. There is diffuse parenchymal volume loss. There are low attenuation areas in the whi te matter. These are nonspecific, but in a patient of this age, they are probably chronic ischemic w patrick matter changes due to microvascular atherosclerosis. IMPRESSION: 1) No acute intracranial findings. 2) Involutional changes and chronic ischemic white matter changes. nolan POS: NATALY
[2017-12-20] MEDS ORDERED: Ciprofloxacin 500 MG TAB ONE (15:24)
[2017-12-20] MEDS ORDERED: Albuterol Sulfate 2.5 mg/3 ml Neb NEB PRN (16:34)
[2017-12-20] MEDS ORDERED: Milk Of Magnesia 30 ML UDCUP PO PRN (16:37)
[2017-12-20] MEDS ORDERED: Ondansetron HCl/PF 4 MG/2 ML Vial IVP PRN (16:37)
[2017-12-20] MEDS ORDERED: Acetaminophen 650 MG Suppository PR PRN (16:37)
[2017-12-20] MEDS ORDERED: Acetaminophen 325 MG TAB PO PRN (16:37)
[2017-12-20] MEDS ORDERED: Sodium Chloride 0.9% 1,000 ML IV SCH (16:45)
[2017-12-20 18:27] LABS: Troponin I Less than 0.010 ng/mL (< 0.028)
[2017-12-20] MEDS: D5 1/2 NS 500 ML IV SCH (18:40)
--- NOTE | 2017-12-20 18:57 | HP ---
PRESENTING COMPLAINT: Altered mental status. HISTORY OF PRESENT ILLNESS: Ms. Bill Casillas is an 87-year-old female with a past medical history of hypertension, diverticulosis, chronic lower back pain, DJD, benign essential tremors, supraventricul ar tachycardia, status post ablation, COPD, atrial fibrillation, diastolic congestive heart failure, CKD stage 3, protein-calorie malnutrition, moderate. Home oxygen use intermittently. She presented to the emergency room from her senior care facility after she had an episode of confusion. There wa s no reported fever, chills, cough or shortness of breath. She was sent to the emergency room for fu rther evaluation. While at the emergency room, initial examination revealed her to be well oriented, but after she was reevaluated, she was found to be delirious and pulling out IV lines and generally not cooperative. Labs revealed a significant urinary tract infection with turbid urine, moderate earl unt of blood, large number of leukocyte esterase, WBCs greater than 50 and 2+ of bacteria seen. Her labs also revealed elevated creatinine to be above her baseline. She was found to have BUN/creatinin e of 43/1.73. She was started on hydration and received IV ceftriaxone for acute encephalopathy seco ndary to urinary tract infection. She was then admitted for further care. PAST MEDICAL HISTORY: As stated in the HPI. PAST SURGICAL HISTORY: Cholecystectomy, appendectomy, , cataract surgery bilaterally, left hip arthroplasty in 03/2017. FAMILY HISTORY: Reviewed and noncontributory. SOCIAL HISTORY: Unable to obtain as the patient is currently altered. HOME MEDICATIONS: Alginate/ascorbic sodium/vitamin E one packet daily, ascorbic acid 500 mg b.i.d., calcium carbonate 600 mg daily, carbamide peroxide 5-10 drops in each ears b.i.d., ferrous sulfate 32 5 mg daily, furosemide 20 mg daily, [place] 1-2 tablets q.4 hours p.r.n. for pain, ipratropium/albutero l sulfate 3 mL nebulizer q.i.d. p.r.n. for shortness of breath, megestrol acetate 400 mg daily, multi vitamins with minerals 1 tablet daily, pantoprazole 40 mg daily, propranolol 80 mg daily, Saccharomyc es boulardii 250 mg b.i.d. REVIEW OF SYSTEMS: Unable to obtain as the patient is currently altered. PHYSICAL EXAMINATION: VITAL SIGNS: Within normal limits, temperature is 98.4 degrees Fahrenheit, BP 137/69, pulse rate 73, respiratory rate 20, oxygen saturation 93% on room air. CONSTITUTIONAL: She is not in acute distress. She is lying comfortably in bed and able to answer so me questions. HEENT: Normocephalic, atraumatic. Not pale, anicteric. Dry mucous membranes, PERRLA. RESPIRATORY: Vesicular breath sounds bilaterally. No wheezes, rales or rhonchi. CARDIOVASCULAR: Irregular rhythm, but regular rate. S1 and S2 with no murmurs, rubs or gallops. ABDOMEN: Soft, not tender, not distended. No hepatosplenomegaly. Normoactive bowel sounds. EXTREMITIES: No edema. NEUROLOGIC: Lethargic, but oriented to person and place. Unable to fully cooperate with examination . SKIN: Warm, dry, well-perfused. No rashes or lesions. PSYCHIATRIC: Unable to assess. LABORATORY DATA: CBC was largely unremarkable apart from hemoglobin of 9.8. Chemistry with elevated BUN/creatinine of 43/1.73. Initial troponin less than 0.010. Hip x-ray showed no acute findings. Chest x-ray showed no acute pulmonary process and a brain CT without contrast revealed no acute patho logy, but showed involutional changes and chronic ischemic white matter changes. ASSESSMENT AND PLAN: 1. Acute encephalopathy. This is likely secondary to urinary tract infection. She seemed to have i mproved with some IV fluids and antibiotic administration. We will continue antibiotics parenterally , gentle hydration and follow up urine cultures. Blood cultures were not obtained in the emergency r oom, so we will obtain blood cultures now and follow up the results. 2. Acute kidney injury on chronic kidney disease: Likely due to poor p.o. intake, she has prerenal acute renal insufficiency. We will hydrate gently and monitor for improvement. If she does not impr ove, we will obtain a renal ultrasound to rule out obstructive uropathy. We will also monitor her in 's and out's and avoid nephrotoxic medications. 3. Chronic obstructive pulmonary disease: She is not in acute exacerbation. We will place on nebul izer therapy scheduled and p.r.n., and continue her home oxygen. 4. Atrial fibrillation. She is currently rate controlled. We will monitor and resume home medicati ons when she can take orally. 5. Hypertension. Blood pressure is currently around goal. We will monitor closely and gradually re introduce her home medication. 6. Benign essential tremors. Stable, resume home medications. 7. Diastolic congestive heart failure: She is not in acute exacerbation. She has been hydrated gen tly due to her acute kidney injury. We will monitor her volume status closely and resume home medica tions. 8. CODE STATUS: DO NOT INTUBATE. This was confirmed with her healthcare proxy, her son, Loc gillespie. 9. Deep venous thrombosis prophylaxis: Subcutaneous heparin.
[2017-12-20] MEDS: Heparin 5,000 UNITS/ML VIAL SC SCH (20:28)
[2017-12-20] MEDS: Docusate 100 MG CAP PO SCH (20:28)
[2017-12-21] MEDS: D5 1/2 NS 500 ML IV SCH ×3 (03:30→23:30)
[2017-12-21 04:41] LABS: #Eosinphils 0.4 thou/uL (0.0-0.7); #Lymphocytes 0.9 thou/uL (1.20-3.40); #Monocytes 0.9 thou/uL (0.11-0.59); #Neutrophils 5.1 thou/uL (1.40-6.50); %Basophils 0.6 % (0.0-1.0); %Eosinophils 5.8 % (0.0-10.0); %Lymphocytes 12.3 % (21.0-51.0); %Monocytes 11.9 % (0.0-10.0); %Neutrophils 69.4 % (42.0-75.0); Hemoglobin 8.8 g/dL (12.0-16.0); Mean Corpuscular HGB CONC 31.9 g/dL (32.0-36.0); Mean Corpuscular Hemoglobin 32.2 pg (27.0-31.0); Mean Platelet Volume 6.1 fL (7.4-10.4); Platelet Count 647 thou/uL (130-400); RBC Distribution Width 13.5 % (11.5-14.5); Red Blood Cell (RBC) Count 2.73 mill/uL (4.20-5.40); White Blood Cell (WBC) Count 7.3 thou/uL (4.8-10.8)
[2017-12-21 04:42] LABS: Anion Gap 9 mmol/L (10-20); BUN (Urea Nitrogen) 41 mg/dL (9.8-20.1); Calc. Creatinine Clearance 21 mL/min (70-130); Calcium 8.9 mg/dL (7.8-10.44); Carbon Dioxide 31 mmol/L (23-31); Chloride 102 mmol/L (98-107); Estimated GFR-MDRD 34; Glucose 105 mg/dL (83-110); Potassium 4.1 mmol/L (3.5-5.1); Sodium 138 mmol/L (136-145)
[2017-12-21] MEDS ORDERED: cefTRIAXone\\ROCEPHIN 1 GM in Sodium Chloride 0.9% 100 ML IVPB SCH (09:00)
[2017-12-21] MEDS: Heparin 5,000 UNITS/ML VIAL SC SCH ×2 (09:04→20:51)
[2017-12-21] MEDS: cefTRIAXone\\ROCEPHIN 1 GM, Syringe 0.4 ML in Sterile Water 9.6 ML SLOW IVP SCH (09:04)
[2017-12-21] MEDS: Docusate 100 MG CAP PO SCH ×3 (09:05→21:12)
[2017-12-21 11:52] VITALS: BMI 16.2
--- NOTE | 2017-12-21 13:43 | PDOC.PN ---
- Subjective Encounter Start Date: 12/21/17 Encounter Start Time: 13:42 Subjective: Patient seen and examined for acute encephalopathy, NAVARRO and UTI. -: Feels better today. Able to answer questions. -: No acute events overnight. - Objective Resuscitation Status: Resuscitation Status FULL:Full Resuscitation MAR Reviewed: Yes Vital Signs & Weight: Vital Signs (12 hours) Temp Pulse Resp BP Pulse Ox 12/21/17 13:20 71 16 94 L 12/21/17 08:00 97.9 F 88 16 94 L 12/21/17 07:16 97.9 F 88 16 154/69 H 97 12/21/17 06:08 76 12 95 12/21/17 03:55 98.3 F 76 18 114/69 92 L 12/21/17 02:30 95 Weight Admit Weight 108 lb 0.424 oz Weight 103 lb 14.4 oz I&O: 12/20/17 12/21/17 12/22/17 06:59 06:59 06:59 Intake Total 900 Balance 900 Result Diagrams: 12/21/17 03:58 12/21/17 03:58 Phys Exam - Physical Examination Constitutional: NAD HEENT: PERRLA, moist MMs, sclera anicteric, oral pharynx no lesions Neck: no JVD, supple, full ROM Respiratory: no wheezing, no rales, no rhonchi, clear to auscultation bilateral Cardiovascular: RRR, no significant murmur, no rub Gastrointestinal: soft, non-tender, no distention, positive bowel sounds Musculoskeletal: no edema, pulses present Neurological: non-focal, moves all 4 limbs Oriented to persin and place Psychiatric: normal affect Skin: no rash, normal turgor Dx/Plan (1) Acute encephalopathy Code(s): G93.40 - ENCEPHALOPATHY, UNSPECIFIED Status: Acute Comment: Improving with hydration and antibiotics. (2) COPD (chronic obstructive pulmonary disease) Status: Chronic Qualifiers: COPD type: unspecified COPD Qualified Code(s): J44.9 - Chronic obstructive pulmonary disease, unspecified Comment: Stable, not in exacerbation. (3) NAVARRO (acute kidney injury) Code(s): N17.9 - ACUTE KIDNEY FAILURE, UNSPECIFIED Status: Acute Comment: Improving with hydration. Has acute on chronic renal failure. (4) Benign essential tremor Code(s): G25.0 - ESSENTIAL TREMOR Status: Chronic (5) UTI (urinary tract infection) Status: Acute Qualifiers: Urinary tract infection type: acute cystitis Hematuria presence: with hematuria Qualified Code(s): N30.01 - Acute cystitis with hematuria Comment: Improving with ceftriaxone. f/u urine cultures. (6) CHF (congestive heart failure) Code(s): I50.9 - HEART FAILURE, UNSPECIFIED Status: Chronic Comment: Chronic , diastolic. Not in acute exacerbation. (7) HTN (hypertension) Code(s): I10 - ESSENTIAL (PRIMARY) HYPERTENSION Status: Chronic Qualifiers: Hypertension type: essential hypertension Qualified Code(s): I10 - Essential (primary) hypertension Comment: Fair control. Will resume home regimen. - Plan cont current plan of care, plan discussed w/ family, continue antibiotics, DVT proph w/heparin Continue gentle hydration Continue antibiotics f/u cultures Monitor volume status closely Delirium precautions. Review of Systems - Medications/Allergies Allergies/Adverse Reactions: Allergies Allergy/AdvReac Type Severity Reaction Status Date / Time codeine Allergy Verified 05/30/17 17:52 metronidazole [From Flagyl] Allergy Verified 05/30/17 17:52 morphine Allergy Verified 05/30/17 17:53 nitrofurantoin Allergy Verified 05/30/17 17:53 [From Macrobid] penicillin Allergy Verified 05/30/17 17:53 Sulfa (Sulfonamide AdvReac Intermediate Verified 05/30/17 17:55 Antibiotics) Medications: Current Medications Acetaminophen (Tylenol) 650 mg PO Q4H PRN PRN Reason: Headache/Fever or Pain Acetaminophen (Tylenol) 650 mg OH Q4H PRN PRN Reason: Headache/Fever or Pain Albuterol Sulfate (Ventolin) 2.5 mg NEB [id number] PRN PRN Reason: SOB &/or Wheezing Albuterol/Ipratropium (Duoneb) 3 ml NEB [id number] [facility] Last Admin: 12/21/17 13:20 Dose: 3 ml Docusate Sodium (Colace) 100 mg PO BID [facility] Last Admin: 12/21/17 09:05 Dose: 100 mg Heparin Sodium (Porcine) (Heparin) 5,000 units SC BID [facility] Last Admin: 12/21/17 09:04 Dose: 5,000 units Dextrose/Sodium Chloride (D5 1/2 Ns) 500 mls @ 50 mls/hr IV .Q10H [facility] Last Admin: 12/21/17 03:30 Dose: Not Given Ceftriaxone Sodium 1 gm/ (Syringe 0.4 ml/ Sterile Water) 10 mls @ 120 mls/hr SLOW IVP 0900 [facility] Last Admin: 12/21/17 09:04 Dose: 10 mls Magnesium Hydroxide (Milk Of Magnesium) 30 ml PO DAILYPRN PRN PRN Reason: Constipation Ondansetron HCl (Zofran) 4 mg IVP Q6H PRN PRN Reason: Nausea/Vomiting
[2017-12-21] MEDS: Saccharomyces boulardii 250 MG CAP PO SCH (20:51)
[2017-12-22 04:51] LABS: #Eosinphils 0.3 thou/uL (0.0-0.7); #Lymphocytes 1.1 thou/uL (1.20-3.40); #Monocytes 0.9 thou/uL (0.11-0.59); #Neutrophils 5.1 thou/uL (1.40-6.50); %Basophils 0.2 % (0.0-1.0); %Lymphocytes 15.1 % (21.0-51.0); %Monocytes 11.5 % (0.0-10.0); %Neutrophils 69.2 % (42.0-75.0); Hemoglobin 8.4 g/dL (12.0-16.0); Mean Corpuscular Hemoglobin 31.5 pg (27.0-31.0); Mean Corpuscular Volume 98.5 fl (81.0-99.0); Mean Platelet Volume 5.9 fL (7.4-10.4); Platelet Count 590 thou/uL (130-400); RBC Distribution Width 13.5 % (11.5-14.5); Red Blood Cell (RBC) Count 2.66 mill/uL (4.20-5.40); White Blood Cell (WBC) Count 7.3 thou/uL (4.8-10.8)
[2017-12-22 04:55] LABS: Anion Gap 8 mmol/L (10-20); BUN (Urea Nitrogen) 26 mg/dL (9.8-20.1); Calc. Creatinine Clearance 25 mL/min (70-130); Calcium 8.4 mg/dL (7.8-10.44); Carbon Dioxide 26 mmol/L (23-31); Chloride 104 mmol/L (98-107); Estimated GFR-MDRD 43; Glucose 101 mg/dL (83-110); Potassium 3.9 mmol/L (3.5-5.1); Sodium 134 mmol/L (136-145)
[2017-12-22] MEDS: Megestrol Acetate 800 MG/20 ML UDCUP PO SCH (08:07)
[2017-12-22] MEDS: Heparin 5,000 UNITS/ML VIAL SC SCH ×2 (08:09→20:18)
[2017-12-22] MEDS: Saccharomyces boulardii 250 MG CAP PO SCH ×2 (08:09→20:18)
[2017-12-22] MEDS: Ferrous Sulfate 325 MG TAB PO SCH (08:10)
[2017-12-22] MEDS: Multivitamin W/ Minerals 1 TAB PO SCH (08:10)
[2017-12-22] MEDS: Calcium Carbonate 600 MG TAB PO SCH (08:10)
[2017-12-22] MEDS: Docusate 100 MG CAP PO SCH ×2 (08:10→20:18)
[2017-12-22] MEDS: Propranolol HCl LA 80 MG CAP PO SCH (08:11)
[2017-12-22] MEDS: cefTRIAXone\\ROCEPHIN 1 GM, Syringe 0.4 ML in Sterile Water 9.6 ML SLOW IVP SCH (09:29)
[2017-12-22] MEDS: D5 1/2 NS 500 ML IV SCH (11:56)
[2017-12-22] MEDS ORDERED: Metoprolol Tartrate 5 MG/5 ML VIAL IVP PRN (13:56)
--- NOTE | 2017-12-22 14:00 | PDOC.PN ---
- Subjective Encounter Start Date: 12/22/17 Encounter Start Time: 10:00 Patient is seen today, alert but disorieted to Time. She had UTI., she is Noted to have Worseing HR with Signs on EKG suggestive of Aflutter. - Objective Resuscitation Status: Resuscitation Status DNI:No Intubation MAR Reviewed: Yes Vital Signs & Weight: Vital Signs (12 hours) Temp Pulse Resp BP Pulse Ox 12/22/17 08:35 98.2 F 144 H 18 162/107 H 100 12/22/17 07:59 157 H 12/22/17 07:43 97.6 F 146 H 14 98 12/22/17 07:23 97.6 F 146 H 14 131/70 96 12/22/17 04:00 94 L 12/22/17 03:33 99.2 F 91 18 121/60 95 Weight Admit Weight 108 lb 0.424 oz Weight 103 lb 14.4 oz I&O: 12/21/17 12/22/17 12/23/17 06:59 06:59 06:59 Intake Total 900 900 240 Balance 900 900 240 Result Diagrams: 12/22/17 04:22 12/22/17 04:22 Additional Labs: Accuchecks 12/22/17 11:53 POC Glucose 161 H Radiology Reviewed by me: Yes Phys Exam - Physical Examination HEENT: PERRLA, moist MMs Neck: no nodes, no JVD Respiratory: no wheezing, no rales Cardiovascular: RRR, no significant murmur Gastrointestinal: soft, non-tender Musculoskeletal: no edema Neurological: non-focal, normal sensation Lymphatic: no nodes Psychiatric: normal affect Dx/Plan (1) Acute encephalopathy Code(s): G93.40 - ENCEPHALOPATHY, UNSPECIFIED Status: Acute Comment: Improving with hydration and antibiotics. (2) COPD (chronic obstructive pulmonary disease) Status: Chronic Qualifiers: COPD type: unspecified COPD Qualified Code(s): J44.9 - Chronic obstructive pulmonary disease, unspecified Comment: Stable, not in exacerbation. (3) Atrial fibrillation with RVR Code(s): I48.91 - UNSPECIFIED ATRIAL FIBRILLATION Status: Acute Comment: HR Uncontrolled on PO Propranolol. Tried Cardizem 15mg bolus no effect, sisnce pt responded to BB last time, will do IV metoprolol 5mg Now. Will consult Cardiology, Will repeat Echo. (4) CHF (congestive heart failure) Code(s): I50.9 - HEART FAILURE, UNSPECIFIED Status: Chronic Comment: Chronic , diastolic. Not in acute exacerbation. (5) HTN (hypertension) Code(s): I10 - ESSENTIAL (PRIMARY) HYPERTENSION Status: Chronic Qualifiers: Hypertension type: essential hypertension Qualified Code(s): I10 - Essential (primary) hypertension Comment: Fair control. Will resume home regimen. 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 - Discharge Day Encounter end time: 10:35 Review of Systems - Review of Systems Constitutional: weakness, malaise Eyes: negative: Pain, Vision Change, Conjunctivae Inflammation, Eyelid Inflammation, Redness, Other ENT: negative: Ear Pain, Ear Discharge, Nose Pain, Nose Discharge, Nose Congestion, Mouth Pain, Mouth Swelling, Throat Pain, Throat Swelling, Other Respiratory: negative: Cough, Dry, Shortness of Breath, Hemoptysis, SOB with Excertion, Pleuritic Pain, Sputum, Wheezing Cardiovascular: negative: chest pain, palpitations, orthopnea, paroxysmal nocturnal dyspnea, edema, light headedness, other Gastrointestinal: negative: Nausea, Vomiting, Abdominal Pain, Diarrhea, Constipation, Melena, Hematochezia, Other Musculoskeletal: negative: Neck Pain, Shoulder Pain, Arm Pain, Back Pain, Hand Pain, Leg Pain, Foot Pain, Other Skin: negative: Rash, Lesions, Romeo, Bruising, Other - Medications/Allergies Allergies/Adverse Reactions: Allergies Allergy/AdvReac Type Severity Reaction Status Date / Time codeine Allergy Verified 05/30/17 17:52 metronidazole [From Flagyl] Allergy Verified 05/30/17 17:52 morphine Allergy Verified 05/30/17 17:53 nitrofurantoin Allergy Verified 05/30/17 17:53 [From Macrobid] penicillin Allergy Verified 05/30/17 17:53 Sulfa (Sulfonamide AdvReac Intermediate Verified 05/30/17 17:55 Antibiotics) Medications: Current Medications Acetaminophen (Tylenol) 650 mg PO Q4H PRN PRN Reason: Headache/Fever or Pain Acetaminophen (Tylenol) 650 mg [place] Q4H PRN PRN Reason: Headache/Fever or Pain Albuterol Sulfate (Ventolin) 2.5 mg NEB [id number] PRN PRN Reason: SOB &/or Wheezing Albuterol/Ipratropium (Duoneb) 3 ml NEB [id number] [facility] Last Admin: 12/22/17 08:34 Dose: Not Given Albuterol/Ipratropium (Duoneb) 3 ml NEB QID PRN PRN Reason: Dyspnea/Wheezing/SOB Calcium Carbonate (Caltrate) 600 mg PO DAILY [facility] Last Admin: 12/22/17 08:10 Dose: 600 mg Docusate Sodium (Colace) 100 mg PO BID [facility] Last Admin: 12/22/17 08:10 Dose: 100 mg Ferrous Sulfate (Feosol) 325 mg PO DAILY [facility] Last Admin: 12/22/17 08:10 Dose: 325 mg Heparin Sodium (Porcine) (Heparin) 5,000 units SC BID [facility] Last Admin: 12/22/17 08:09 Dose: 5,000 units Dextrose/Sodium Chloride (D5 1/2 Ns) 500 mls @ 50 mls/hr IV .Q10H [facility] Last Admin: 12/22/17 11:56 Dose: 500 mls Ceftriaxone Sodium 1 gm/ (Syringe 0.4 ml/ Sterile Water) 10 mls @ 120 mls/hr SLOW IVP 0900 [facility] Last Admin: 12/22/17 09:29 Dose: 10 mls Iron/Minerals/Multivitamins (Theragran M) 1 tab PO DAILY [facility] Last Admin: 12/22/17 08:10 Dose: 1 tab Magnesium Hydroxide (Milk Of Magnesium) 30 ml PO DAILYPRN PRN PRN Reason: Constipation Megestrol Acetate (Megace) 400 mg PO DAILY [facility] Last Admin: 12/22/17 08:07 Dose: 400 mg Metoprolol Tartrate (Lopressor) 5 mg IVP ONE PRN PRN Reason: Tachycardia Ondansetron HCl (Zofran) 4 mg IVP Q6H PRN PRN Reason: Nausea/Vomiting Pantoprazole Sodium (Protonix) 40 mg PO DAILY [facility] Last Admin: 12/22/17 08:10 Dose: 40 mg Propranolol HCl (Inderal La) 80 mg PO DAILY [facility] Last Admin: 12/22/17 08:11 Dose: 80 mg Saccharomyces Boulardii (Florastor) 250 mg PO BID [facility] Last Admin: 12/22/17 08:09 Dose: 250 mg
--- NOTE | 2017-12-22 16:26 | CON ---
DATE OF CONSULTATION: 12/22/2017 REASON FOR CONSULTATION: Atrial fibrillation. PRIMARY FIRE EATER: Dr. Simeon De La Cruz. HISTORY OF PRESENT ILLNESS: Mrs. Khan is a very pleasant 87-year-old white female who comes to the hospital for altered mentation. She was found to be altered at her correction and was found to rapp ve UTI and was admitted for this. She was treated appropriately and she is now much better. Her men tation is back to normal. Alert and oriented x3. During her admission, she was placed in the teleme try unit and was found to have paroxysms of atrial fibrillation, so Cardiology is being consulted. S he has a history of paroxysmal atrial fibrillation, much better controlled since she has been on beta -blockers. She is asymptomatic from atrial fibrillation standpoint and she is currently back in norm al rhythm. PAST MEDICAL HISTORY: 1. Hypertension. 2. Hyperlipidemia. 3. History of noncompliance with medications. 4. Diverticulitis. 5. Recurrent urinary tract infections. 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 7. Paroxysmal atrial fibrillation. PAST SURGICAL HISTORY: 1. Cholecystectomy. 2. Appendectomy. 3. . 4. Radiofrequency ablation as above. OUTPATIENT MEDICATIONS: Include, 1. Lasix 20 mg b.i.d. 2. Vitamin C. 3. Aragonite powder. 4. DuoNeb. 5. [place]. 6. Feosol. 7. Calcium. 8. Propranolol 80 mg a day. 9. Pantoprazole 40 mg a day. 10. Multivitamin daily. 11. Megace. 12. Florastor. ALLERGIES: 1. CODEINE. 2. METRONIDAZOLE. 3. MORPHINE. 4. MACROBID. ALLERGIES: 1. PENICILLIN. 2. SULFA DRUGS. SOCIAL HISTORY: Smoked half a pack a day until year 1999. No alcohol, no drugs. She is . FAMILY HISTORY: Noncontributory. REVIEW OF SYSTEMS: A 12-point review of systems was done and is all negative unless stated in the his tory of present illness. PHYSICAL EXAMINATION: VITAL SIGNS: Temperature 98.2, pulse 144 down to 84, respiratory rate 16, satting 96% on room air, b lood pressure 160/107. GENERAL: Awake, alert, oriented x3, in no distress. HEENT: Normocephalic, atraumatic. NECK: Supple. LUNGS: Have reduced breath sounds bilaterally. CARDIOVASCULAR: S1, S2, no S3, multiple PVCs and PACs. ABDOMEN: Soft, positive bowel sounds. EXTREMITIES: No edema. SKIN: Warm and dry. LABORATORY DATA: Laboratory work was reviewed. Hematology was reviewed. Chemistries and UA were re viewed. MICROBIOLOGY: Urine cultures positive for Klebsiella pneumoniae. ASSESSMENT AND PLAN: 1. Paroxysmal atrial fibrillation: Back in sinus at that time. Most likely related to her kidney i nfection and altered mentation. Continue her home dose of propranolol for now. Low dose aspirin for stroke prophylaxis given noncompliance and frail state. 2. Continue telemetry monitoring for now. Thank you for letting us to participate in the care of your patient. We will follow.
--- NOTE | 2017-12-22 16:45 | EKG ---
Test Reason : Blood Pressure : / mmHG Vent. Rate : 153 BPM Atrial Rate : 150 BPM P-R Int : 000 ms QRS Dur : 122 ms QT Int : 306 ms P-R-T Axes : 000 091 048 degrees QTc Int : 488 ms Atrial fibrillation with rapid ventricular response with premature ventricular or aberrantly conducte d complexes Right bundle branch block Abnormal ECG When compared with ECG of 26-APR-2017 10:15, No significant change was found Confirmed by DR. Jacque POPE ([id number]) on 12/22/2017 4:45:24 PM Referred By: ALLEN Confirmed By:DR. Jacque POPE
[2017-12-23 05:06] LABS: #Eosinphils 0.4 thou/uL (0.0-0.7); #Lymphocytes 0.9 thou/uL (1.20-3.40); #Monocytes 0.7 thou/uL (0.11-0.59); #Neutrophils 4.5 thou/uL (1.40-6.50); %Basophils 0.4 % (0.0-1.0); %Eosinophils 6.3 % (0.0-10.0); %Lymphocytes 13.8 % (21.0-51.0); %Monocytes 10.9 % (0.0-10.0); %Neutrophils 68.6 % (42.0-75.0); Hemoglobin 8.6 g/dL (12.0-16.0); Mean Corpuscular HGB CONC 32.3 g/dL (32.0-36.0); Mean Corpuscular Volume 99.3 fl (81.0-99.0); Platelet Count 606 thou/uL (130-400); RBC Distribution Width 13.7 % (11.5-14.5); Red Blood Cell (RBC) Count 2.68 mill/uL (4.20-5.40); White Blood Cell (WBC) Count 6.5 thou/uL (4.8-10.8)
[2017-12-23 05:15] LABS: Anion Gap 9 mmol/L (10-20); BUN (Urea Nitrogen) 19 mg/dL (9.8-20.1); Calc. Creatinine Clearance 25 mL/min (70-130); Calcium 8.9 mg/dL (7.8-10.44); Carbon Dioxide 26 mmol/L (23-31); Chloride 105 mmol/L (98-107); Estimated GFR-MDRD 42; Glucose 99 mg/dL (83-110); Potassium 3.8 mmol/L (3.5-5.1); Sodium 136 mmol/L (136-145)
[2017-12-23] MEDS: D5 1/2 NS 500 ML IV SCH ×2 (06:18→06:20)
[2017-12-23] MEDS: Dextrose 5 %-0.45 % NaCl 1,000 ML IV SCH (06:18)
[2017-12-23] MEDS: Multivitamin W/ Minerals 1 TAB PO SCH (09:21)
[2017-12-23] MEDS: Saccharomyces boulardii 250 MG CAP PO SCH ×2 (09:22→20:39)
[2017-12-23] MEDS: Calcium Carbonate 600 MG TAB PO SCH (09:22)
[2017-12-23] MEDS: Ferrous Sulfate 325 MG TAB PO SCH (09:22)
[2017-12-23] MEDS: Heparin 5,000 UNITS/ML VIAL SC SCH ×2 (09:22→20:39)
[2017-12-23] MEDS: Docusate 100 MG CAP PO SCH ×2 (09:22→20:39)
[2017-12-23] MEDS: Megestrol Acetate 800 MG/20 ML UDCUP PO SCH (09:23)
[2017-12-23] MEDS: Propranolol HCl LA 80 MG CAP PO SCH (09:23)
[2017-12-23] MEDS: cefTRIAXone\\ROCEPHIN 1 GM, Syringe 0.4 ML in Sterile Water 9.6 ML SLOW IVP SCH (09:29)
--- NOTE | 2017-12-23 17:19 | PDOC.CTH ---
Cardiology Progress Note - Subjective She is doing well. No chest pain, breathing at baseline. - Objective Vital Signs Temp Pulse Pulse Pulse Resp BP BP 12/23/17 16:00 99.1 F 76 17 12/23/17 15:15 78 76 127/60 132/69 12/23/17 12:00 77 16 12/23/17 11:46 98.6 F 75 18 12/23/17 08:00 98.2 F 82 16 BP Pulse Ox 12/23/17 16:00 132/69 99 12/23/17 15:15 12/23/17 12:00 98 12/23/17 11:46 150/71 H 99 12/23/17 08:00 148/68 H 98 Admit Weight 108 lb 0.424 oz Weight 97 lb 5 oz 12/22/17 12/23/17 12/24/17 06:59 06:59 06:59 Intake Total 900 1080 240 Balance 900 1080 240 - Labs Result Diagrams: 12/23/17 04:37 12/23/17 04:37 Troponin/CKMB CK-MB (CK-2) 1.0 ng/mL (0-6.6) 12/20/17 12:17 Troponin I Less than 0.010 ng/mL (< 0.028) 12/20/17 17:45 - Assessment/Plan 1. Paroxysmal afib, remains in sinus. 2. AMS, resolved. PLAN: - Continue current meds for now. - Aspirin alone for stroke prophylaxis due to high fall risk. - PT evaluated and she is very unsteady on her feet.
[2017-12-24] MEDS: Dextrose 5 %-0.45 % NaCl 1,000 ML IV SCH (01:45)
[2017-12-24 06:26] LABS: #Eosinphils 0.6 thou/uL (0.0-0.7); #Lymphocytes 1.1 thou/uL (1.20-3.40); #Monocytes 0.9 thou/uL (0.11-0.59); #Neutrophils 5.3 thou/uL (1.40-6.50); %Basophils 0.2 % (0.0-1.0); %Eosinophils 7.6 % (0.0-10.0); %Lymphocytes 13.7 % (21.0-51.0); %Monocytes 11.1 % (0.0-10.0); %Neutrophils 67.4 % (42.0-75.0); Hemoglobin 8.3 g/dL (12.0-16.0); Mean Corpuscular HGB CONC 32.3 g/dL (32.0-36.0); Mean Platelet Volume 6.2 fL (7.4-10.4); Platelet Count 575 thou/uL (130-400); RBC Distribution Width 13.6 % (11.5-14.5); Red Blood Cell (RBC) Count 2.58 mill/uL (4.20-5.40); White Blood Cell (WBC) Count 7.9 thou/uL (4.8-10.8)
[2017-12-24 06:37] LABS: Anion Gap 9 mmol/L (10-20); BUN (Urea Nitrogen) 15 mg/dL (9.8-20.1); Calc. Creatinine Clearance 27 mL/min (70-130); Calcium 8.4 mg/dL (7.8-10.44); Carbon Dioxide 22 mmol/L (23-31); Chloride 108 mmol/L (98-107); Estimated GFR-MDRD 47; Glucose 92 mg/dL (83-110); Potassium 4.2 mmol/L (3.5-5.1); Sodium 135 mmol/L (136-145)
--- NOTE | 2017-12-24 07:17 | PDOC.PN ---
- Subjective Encounter Start Date: 12/23/17 Encounter Start Time: 11:00 Jesse is seen today, alert and oriented. She has urine Cultures Sentivitis back today, Resistant Rocephin which she was getting. She still feels weak. - Objective Resuscitation Status: Resuscitation Status DNI:No Intubation Vital Signs & Weight: Vital Signs (12 hours) Temp Pulse Resp BP Pulse Ox 12/24/17 04:00 97.7 F 78 20 157/71 H 97 12/24/17 00:19 99 16 95 12/24/17 00:00 99.1 F 74 18 136/56 L 95 12/23/17 20:00 97.2 F L 79 18 126/64 95 Weight Admit Weight 108 lb 0.424 oz Weight 103 lb 12.8 oz I&O: 12/23/17 12/24/17 12/25/17 06:59 06:59 06:59 Intake Total 1080 2250 Balance 1080 2250 Result Diagrams: 12/24/17 05:30 12/24/17 05:30 Radiology Reviewed by me: Yes Phys Exam - Physical Examination HEENT: PERRLA, moist MMs Neck: no nodes, no JVD Respiratory: no wheezing, no rales Cardiovascular: RRR, no significant murmur Gastrointestinal: soft, non-tender Musculoskeletal: no edema, pulses present Neurological: non-focal, normal sensation Lymphatic: no nodes Skin: no rash, normal turgor Dx/Plan (1) Acute encephalopathy Code(s): G93.40 - ENCEPHALOPATHY, UNSPECIFIED Status: Acute Comment: Improving with hydration and Will change Abx to Levofloxacin 250 mg IV daily. (2) COPD (chronic obstructive pulmonary disease) Status: Chronic Qualifiers: COPD type: unspecified COPD Qualified Code(s): J44.9 - Chronic obstructive pulmonary disease, unspecified Comment: Stable, not in exacerbation. (3) Atrial fibrillation with RVR Code(s): I48.91 - UNSPECIFIED ATRIAL FIBRILLATION Status: Acute Comment: HR Uncontrolled on PO Propranolol. Tried Cardizem 15mg bolus no effect, sisnce pt responded to BB last time, will do IV metoprolol 5mg Now. Will consult Cardiology, Will repeat Echo. (4) CHF (congestive heart failure) Code(s): I50.9 - HEART FAILURE, UNSPECIFIED Status: Chronic Comment: Chronic , diastolic. Not in acute exacerbation. (5) HTN (hypertension) Code(s): I10 - ESSENTIAL (PRIMARY) HYPERTENSION Status: Chronic Qualifiers: Hypertension type: essential hypertension Qualified Code(s): I10 - Essential (primary) hypertension Comment: Fair control. Will resume home regimen. 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 - Discharge Day Encounter end time: 11:35 Review of Systems - Review of Systems Constitutional: weakness Eyes: negative: Pain, Vision Change, Conjunctivae Inflammation, Eyelid Inflammation, Redness, Other ENT: negative: Ear Pain, Ear Discharge, Nose Pain, Nose Discharge, Nose Congestion, Mouth Pain, Mouth Swelling, Throat Pain, Throat Swelling, Other Respiratory: negative: Cough, Dry, Shortness of Breath, Hemoptysis, SOB with Excertion, Pleuritic Pain, Sputum, Wheezing Cardiovascular: negative: chest pain, palpitations, orthopnea, paroxysmal nocturnal dyspnea, edema, light headedness, other Gastrointestinal: negative: Nausea, Vomiting, Abdominal Pain, Diarrhea, Constipation, Melena, Hematochezia, Other Genitourinary: negative: Dysuria, Frequency, Incontinence, Hematuria, Retention , Other Musculoskeletal: negative: Neck Pain, Shoulder Pain, Arm Pain, Back Pain, Hand Pain, Leg Pain, Foot Pain, Other - Medications/Allergies Allergies/Adverse Reactions: Allergies Allergy/AdvReac Type Severity Reaction Status Date / Time codeine Allergy Verified 05/30/17 17:52 metronidazole [From Flagyl] Allergy Verified 05/30/17 17:52 morphine Allergy Verified 05/30/17 17:53 nitrofurantoin Allergy Verified 05/30/17 17:53 [From Macrobid] penicillin Allergy Verified 05/30/17 17:53 Sulfa (Sulfonamide AdvReac Intermediate Verified 05/30/17 17:55 Antibiotics) Medications: Current Medications Acetaminophen (Tylenol) 650 mg PO Q4H PRN PRN Reason: Headache/Fever or Pain Last Admin: 12/22/17 17:44 Dose: 650 mg Acetaminophen (Tylenol) 650 mg [place] Q4H PRN PRN Reason: Headache/Fever or Pain Albuterol Sulfate (Ventolin) 2.5 mg NEB [id number] PRN PRN Reason: SOB &/or Wheezing Albuterol/Ipratropium (Duoneb) 3 ml NEB [id number] [facility] Last Admin: 12/24/17 00:19 Dose: 3 ml Albuterol/Ipratropium (Duoneb) 3 ml NEB QID PRN PRN Reason: Dyspnea/Wheezing/SOB Calcium Carbonate (Caltrate) 600 mg PO DAILY [facility] Last Admin: 12/23/17 09:22 Dose: 600 mg Docusate Sodium (Colace) 100 mg PO BID [facility] Last Admin: 12/23/17 20:39 Dose: 100 mg Ferrous Sulfate (Feosol) 325 mg PO DAILY [facility] Last Admin: 12/23/17 09:22 Dose: 325 mg Heparin Sodium (Porcine) (Heparin) 5,000 units SC BID [facility] Last Admin: 12/23/17 20:39 Dose: 5,000 units Dextrose/Sodium Chloride (D5 1/2 Ns) 1,000 mls @ 50 mls/hr IV .Q20H [facility] Last Admin: 12/24/17 01:45 Dose: 1,000 mls Levofloxacin 250 mg/ Device 50 mls @ 100 mls/hr IVPB 1000 [facility] Last Admin: 12/23/17 12:01 Dose: 50 mls Iron/Minerals/Multivitamins (Theragran M) 1 tab PO DAILY [facility] Last Admin: 12/23/17 09:21 Dose: 1 tab Magnesium Hydroxide (Milk Of Magnesium) 30 ml PO DAILYPRN PRN PRN Reason: Constipation Megestrol Acetate (Megace) 400 mg PO DAILY [facility] Last Admin: 12/23/17 09:23 Dose: 400 mg Ondansetron HCl (Zofran) 4 mg IVP Q6H PRN PRN Reason: Nausea/Vomiting Pantoprazole Sodium (Protonix) 40 mg PO DAILY [facility] Last Admin: 12/23/17 09:22 Dose: 40 mg Propranolol HCl (Inderal La) 80 mg PO DAILY [facility] Last Admin: 12/23/17 09:23 Dose: 80 mg Saccharomyces Boulardii (Florastor) 250 mg PO BID [facility] Last Admin: 12/23/17 20:39 Dose: 250 mg Sodium Chloride (Flush - Normal Saline) 10 ml IVF Q12HR [facility] Last Admin: 12/23/17 20:39 Dose: 10 ml Sodium Chloride (Flush - Normal Saline) 10 ml IVF PRN PRN PRN Reason: Saline Flush
[2017-12-24] MEDS: Saccharomyces boulardii 250 MG CAP PO SCH (09:26)
[2017-12-24] MEDS: Heparin 5,000 UNITS/ML VIAL SC SCH (09:27)
[2017-12-24] MEDS: Calcium Carbonate 600 MG TAB PO SCH (09:27)
[2017-12-24] MEDS: Multivitamin W/ Minerals 1 TAB PO SCH (09:27)
[2017-12-24] MEDS: Megestrol Acetate 800 MG/20 ML UDCUP PO SCH (09:27)
[2017-12-24] MEDS: Docusate 100 MG CAP PO SCH (09:28)
[2017-12-24] MEDS: Ferrous Sulfate 325 MG TAB PO SCH (09:28)
[2017-12-24] MEDS: Propranolol HCl LA 80 MG CAP PO SCH (09:28)
[2017-12-24 14:51] VITALS: BP 157/69; TEMP 97.9
--- NOTE | 2017-12-24 16:36 | PDOC.CTH ---
Cardiology Progress Note - Subjective No new issues. Back to normal baseline. - Objective Vital Signs Temp Pulse Pulse Pulse Resp BP BP 12/24/17 13:17 76 16 12/24/17 12:15 75 81 150/70 H 152/72 H 12/24/17 12:00 97.9 F 75 18 12/24/17 08:00 97.5 F L 75 18 12/24/17 07:38 90 16 BP Pulse Ox 12/24/17 13:17 94 L 12/24/17 12:15 12/24/17 12:00 157/69 H 95 12/24/17 08:00 154/70 H 96 12/24/17 07:38 95 Admit Weight 108 lb 0.424 oz Weight 103 lb 12.8 oz 12/23/17 12/24/17 12/25/17 06:59 06:59 06:59 Intake Total 1080 2250 240 Balance 1080 2250 240 - Physical Examination General/Neuro: alert & oriented x3, NAD Neck: no JVD present Lungs: unlabored respirations Heart: RRR Abdomen: NT/ND Extremities: other: (no edema.) - Telemetry Telemetry Rhythm: NSR - Labs Result Diagrams: 12/24/17 05:30 12/24/17 05:30 Troponin/CKMB CK-MB (CK-2) 1.0 ng/mL (0-6.6) 12/20/17 12:17 Troponin I Less than 0.010 ng/mL (< 0.028) 12/20/17 17:45 - Assessment/Plan 1. Paroxysmal afib, remains in sinus. 2. AMS, resolved. PLAN: - Continue current meds for now. - Aspirin alone for stroke prophylaxis due to high fall risk.
--- NOTE | 2017-12-24 17:28 | DIS ---
DATE OF ADMISSION: 12/20/2017 DATE OF DISCHARGE: 12/24/2017 ADMITTING DIAGNOSIS: Acute encephalopathy. DISCHARGE DIAGNOSIS: Acute infectious encephalopathy secondary to urinary tract infection. SECONDARY DIAGNOSES: 1. Acute kidney injury and chronic kidney disease. 2. Moderate dehydration. 3. Chronic obstructive pulmonary disease. 4. Atrial fibrillation. 5. Hypertension. 6. Chronic diastolic congestive heart failure. CONSULTANTS INVOLVED IN THE CARE: Cardiology, Dr. Bridger Sunshine. HISTORY OF PRESENT ILLNESS AND HOSPITAL COURSE: In brief, this is an 87-year-old white female who is a resident of the senior care. She presented to the hospital with a complaint of episode of confus ion with no fevers, no chills or cough and she was noted to have a urinary tract infection. She was treated for urinary tract infection initially with Rocephin, but it started growing Klebsiella, which was resistant to Rocephin and was sensitive only to levofloxacin. The patient's antibiotic was amador ged at that time. During this admission, it was noted that the patient was very dehydrated and had a cute kidney injury as she was on a chronic Lasix. She was started on IV fluids for the same and she also had a history of congestive heart failure and atrial fibrillation. The patient went into rapid atrial fibrillation. The patient was seen by Cardiology and closely monitored the patient throughout her hospitalization. The patient is showing good improvement and was advised to continue on the shiva e dose of propranolol at home. As her heart rate came back to normal, but the patient remains in atr ial fibrillation rhythm. Patient was discharged home on levofloxacin and discharged back to senior care on levofloxacin. PHYSICAL EXAMINATION: On date of discharge: VITAL SIGNS: Blood pressures are 152/72, heart rate is 94, respiration rate is 18, saturation 98% on room air. GENERAL: The patient is moderately built, moderately nourished, does not appear to be in acute distr ess. CARDIOVASCULAR SYSTEM: S1, S2 normal. No murmurs, rubs or gallops. LUNGS: Bilateral air entry was equal. No wheezing, no crackles. ABDOMEN: Soft, nontender, no guarding, no rebound tenderness. Bowel sounds normal. MUSCULOSKELETAL: No calf tenderness. No pedal edema. No joint tenderness, no joint swelling. DISCHARGE MEDICATIONS: 1. Aspirin 325 mg p.o. daily. 2. Cholecalciferol subcutaneous p.o. b.i.d. 3. Hyoscyamine sulfate 1-2 tablets p.o. q.6 hours p.r.n. 4. Lactobacillus. 5. Loperamide 2 mg as needed. 6. Melatonin 6 mg p.o. at bedtime. 7. Lasix 40 mg p.o. daily. 8. Hydrocodone. 9. Ferrous sulfate 325 mg p.o. b.i.d. 10. Ipratropium. 11. Megace 400mg p.o. daily. 12. Multivitamin. 13. Pantoprazole 40 mg p.o. daily. 14. Propranolol 80 mg p.o. daily. 15. Levofloxacin 250 mg p.o. daily for 7 more days. DISCHARGE INSTRUCTIONS: Continue activity as tolerated. Advised to follow up with primary care phys ician in 1-2 weeks. Advised to follow up with Cardiology in 2-3 weeks. Advised to return back to e ER if the patient develops any further fevers or worsening abdominal pain. Advised to continue on the cardiac diet and activity as tolerated. I spent 35 minutes with this patient on the day of discharge.
== END 2017-12-24 15:52 | DRG 689 ==
LOC: ERS 11:47 → T4-B 16:18 → 2NO 12-22 08:44
PROVIDERS: ADMIT Internal Medicine; ATTEND Internal Medicine
DX: N39.0 Urinary tract infection, site not specified (principal); G92 Toxic encephalopathy; N17.9 Acute kidney failure, unspecified; I50.32 Chronic diastolic (congestive) heart failure; I13.0 Hypertensive heart and chronic kidney disease with heart failure and stage 1 through stage 4 chronic kidney disease, or unspecified chronic kidney disease; E44.0 Moderate protein-calorie malnutrition; Z68.1 Body mass index [BMI] 19.9 or less, adult; N18.3 Chronic kidney disease, stage 3 (moderate); J44.9 Chronic obstructive pulmonary disease, unspecified; M19.90 Unspecified osteoarthritis, unspecified site; Z79.899 Other long term (current) drug therapy; K57.90 Diverticulosis of intestine, part unspecified, without perforation or abscess without bleeding; M54.9 Dorsalgia, unspecified; G89.29 Other chronic pain; Z99.81 Dependence on supplemental oxygen; Z79.891 Long term (current) use of opiate analgesic; G25.0 Essential tremor; B96.1 Klebsiella pneumoniae [K. pneumoniae] as the cause of diseases classified elsewhere; Z16.29 Resistance to other single specified antibiotic; E86.0 Dehydration; I48.0 Paroxysmal atrial fibrillation; Z91.14 Patient's other noncompliance with medication regimen; Z88.5 Allergy status to narcotic agent; Z88.8 Allergy status to other drugs, medicaments and biological substances; Z88.1 Allergy status to other antibiotic agents; Z88.0 Allergy status to penicillin; Z88.2 Allergy status to sulfonamides
CPT/HCPCS: 36415; 36416; 51701; 70450; 71045; 80048; 80053; 81003; 81015; 82550; 82553; 84484; 85025; 87040; 87077; 87086; 87186; 93005; 93010; 93306; 94640; 94760; 96361; 96374; A4216; A4353; G8978-GP-CL; G8979-GP-CJ; J0696; J1644; J1956; J7050; J7620

== ENCOUNTER 2017-12-26 09:29 | Outpatient (CLI) | payer MEDICARE, MEDICAID | END 2017-12-26 09:30 | disposition home or self-care (01) | LOC: BICCT 09:29 | PROVIDERS: ATTEND Radiology Radiation Oncology | DX: C54.3 Malignant neoplasm of fundus uteri (principal); J90 Pleural effusion, not elsewhere classified; J98.11 Atelectasis | CPT/HCPCS: 74176 ==

== ENCOUNTER 2018-02-16 18:24 | Inpatient (IN) | payer MEDICARE, MEDICAID ==
[2018-02-16 18:55] LABS: Bilirubin Negative (Negative); Blood, Urine Moderate (Negative); Clarity TURBID (Clear); Glucose, Urine (Dipstick) Negative (Negative); Leukocyte Large (Negative); Nitrite Negative (Negative); Protein, Urine (Dipstick) 30 mg/dL (Neg-Trace); Urobilinogen 0.2 mg/dL (0.2-1.0); pH, Urine 5.5 (5.0-9.0)
[2018-02-16 18:57] LABS: RBC/HPF 21-50 HPF (0-3); Squamous Epithelial 0-3 HPF (0-3); Yeast-AUWi Flag 22.3 (0-25.0)
[2018-02-16 19:00] LABS: Pathc Cast-AUWi Flag 11.35 (0-2.49)
[2018-02-16 19:06] LABS: Bacteria/HPF 3+ HPF (None Seen); Hyaline Casts/LPF NONE SEEN LPF (0-3 Hyaline); Other Casts/LPF None Seen LPF (0-3 Hyaline)
--- NOTE | 2018-02-16 19:30 | CT ---
NONCONTRAST HEAD CT: 02/16/18 HISTORY: Fall. Posttraumatic pain. COMPARISON: 12/20/17. TECHNIQUE: Noncontrast head CT is performed from skull base to skull vertex. FINDINGS: No parenchymal hemorrhage. No extra-axial hematoma. No midline shift. Basilar cisterns are patent. Ag e appropriate atrophy. Cortical richards-white matter differentiation is preserved. No evidence of hydroc ephalus. Chronic small vessel ischemic changes of the white matter are noted. Calvarium is intact. Ad equate aeration of the sinuses and mastoid air cells. IMPRESSION: No intracranial posttraumatic sequela. POS: [facility]
--- NOTE | 2018-02-16 19:46 | CT ---
CT CERVICAL SPINE WITHOUT CONTRAST: 02/16/18 HISTORY: Patient fell two days ago. Posttraumatic pain. COMPARISON: 03/26/17. TECHNIQUE: CT cervical spine is performed without contrast. Reformatted images are submitted for interpretation. FINDINGS: No craniocervical dissociation. Lateral masses of C1 and C2 as well as the facets have appropriate al ignment. Odontoid process is intact. There is no prevertebral soft tissue swelling. Soft tissue neck structures are unremarkable. There ar e varying degrees of central canal stenosis and foraminal narrowing on the basis of degenerative amador ge. Asymmetrically prominent left thyroid lobe, incompletely evaluated. There appears to be a groun d glass nodule in the left lung apex measuring 7 mm. Sagittal reformatted images demonstrate stable spondylolisthesis. There is 4 mm of anterolisthesis of C3 upon C4, 2 mm of anterolisthesis of C4 upon C5, 2.5 mm retrolisthesis of C5 upon C6. Stable loss of disc space height. Cervical spine vertebral body height is maintained. There is no fracture. IMPRESSION: 1. No cervical spine fracture. 2. Interval development of a ground glass nodule in the left lung apex. Initial opacities in the right lung apex are felt to be chronic. Code LN POS: [facility]
[2018-02-16 20:06] LABS: Hemoglobin 11.3 g/dL (12.0-16.0); Mean Corpuscular Hemoglobin 32.7 pg (27.0-31.0); Mean Platelet Volume 5.9 fL (7.4-10.4); Platelet Count 488 thou/uL (130-400); RBC Distribution Width 13.4 % (11.5-14.5); Red Blood Cell (RBC) Count 3.45 mill/uL (4.20-5.40); White Blood Cell (WBC) Count 12.9 thou/uL (4.8-10.8)
[2018-02-16 20:14] LABS: INR-International Normal Ratio 1.3; PTT 28.6 SEC (22.9-36.1); Prothrombin Time 15.9 SEC (12.0-14.7)
[2018-02-16 20:25] LABS: ALT (SGPT) 7 U/L (8-55); AST (SGOT) 10 U/L (5-34); Albumin 3.2 g/dL (3.4-4.8); Alkaline Phosphatase 50 U/L (40-150); Anion Gap 15 mmol/L (10-20); BUN (Urea Nitrogen) 49 mg/dL (9.8-20.1); Bilirubin, Total 0.3 mg/dL (0.2-1.2); Calc. Creatinine Clearance 0 mL/min (70-130); Calcium 9.9 mg/dL (7.8-10.44); Carbon Dioxide 27 mmol/L (23-31); Chloride 102 mmol/L (98-107); Estimated GFR-MDRD 26; Globulin 3.7 g/dL (2.4-3.5); Glucose 102 mg/dL (83-110); Potassium 5.2 mmol/L (3.5-5.1); Protein, Total 6.9 g/dL (6.0-8.3); Sodium 139 mmol/L (136-145)
[2018-02-16 20:27] LABS: Band 16 % (5-11); Eosinophils 1 % (0-10); Lymphocytes 5 % (21-51); MDiff Complete? YES; Macrocytosis SLIGHT = 6-15 cells (100X) (0-5/hpf); Monocytes 6 % (0-10); Neutrophil 72 % (42-75); PLT Morphology Comment Appears Increased; Polychromasia SLIGHT = 2-3 cells (100X) (0-2/hpf)
[2018-02-16 20:29] LABS: CKMB 0.8 ng/mL (0-6.6); Troponin I Less than 0.010 ng/mL (< 0.028)
--- NOTE | 2018-02-16 20:35 | RAD ---
LEFT HIP TWO VIEWS: 02/16/18 COMPARISON: 12/20/17 HISTORY: Patient fell two days ago. Evaluate for possible fracture. FINDINGS: Left hip arthroplasty is identified. No evidence of complication. No perihardware lucency. Acute left hip fracture is not appreciated. Questionable irregularity involving the left superior pubic ramus. Possibility of a fracture is raised. IMPRESSION: 1. Uncomplicated left hip arthroplasty. 2. Possible left superior pubic ramus fracture. POS: [facility]
[2018-02-16] MEDS ORDERED: cefTRIAXone\\ROCEPHIN 2 GM in Sodium Chloride 0.9% 100 ML IVPB SCH (21:15)
[2018-02-17] MEDS ORDERED: Ondansetron HCl/PF 4 MG/2 ML Vial IVP PRN (01:14)
[2018-02-17] MEDS ORDERED: Ondansetron ODT 4 MG TAB SL PRN (01:14)
[2018-02-17] MEDS ORDERED: Acetaminophen 325 MG TAB PO PRN (01:14)
[2018-02-17 02:04] VITALS: BMI 16.9
[2018-02-17] MEDS ORDERED: Sodium Chloride 0.9% 1,000 ML IV SCH (03:45)
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
[2018-02-17] MEDS ORDERED: Non-Formulary Item 1 EACH (Arginine/Ascorbate Sod/Vite Ac [Arginaid Powder] 1 PACKET) PO SCH (09:00)
[2018-02-17] MEDS ORDERED: Propranolol HCl LA 80 MG CAP PO SCH (09:00)
[2018-02-17] MEDS ORDERED: Enoxaparin Sodium 40 MG/0.4 ML SYRINGE SC SCH (09:00)
[2018-02-17] MEDS: Docusate 100 MG CAP PO SCH ×2 (09:50→19:03)
[2018-02-17] MEDS: Propranolol HCl LA 80 MG CAP PO SCH (09:50)
[2018-02-17] MEDS: Lactinex Tablet PO SCH ×2 (09:51→20:43)
[2018-02-17] MEDS: Multivitamin W/ Minerals 1 TAB PO SCH (09:51)
[2018-02-17] MEDS: Enoxaparin Sodium 30 MG/0.3 ML SYRINGE SC SCH (09:51)
[2018-02-17] MEDS: Aspirin 325 MG TAB PO SCH (09:51)
[2018-02-17] MEDS: Ferrous Sulfate 325 MG TAB PO SCH ×2 (09:51→20:43)
--- NOTE | 2018-02-17 13:49 | PDOC.EVN ---
Event Note - Event Note Event Note: EVALUATED PATIENT. SHE DENIES ANY PAIN AT THIS TIME. ABDOMEN IS SOFT AND NON- TENDER. NO TTP WITH PELVIC COMPRESSION. URINE CULTURE ARE LOOKING LIKE E. COLI. CONTINUE IV LEVAQUIN AND AWAIT SENSITIVITIES.
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
[2018-02-18 05:41] LABS: #Eosinphils 0.1 thou/uL (0.0-0.7); #Lymphocytes 0.5 thou/uL (1.20-3.40); #Monocytes 0.7 thou/uL (0.11-0.59); #Neutrophils 9.7 thou/uL (1.40-6.50); %Basophils 0.1 % (0.0-1.0); %Eosinophils 0.8 % (0.0-10.0); %Lymphocytes 4.2 % (21.0-51.0); %Monocytes 6.6 % (0.0-10.0); %Neutrophils 88.3 % (42.0-75.0); Hemoglobin 9.9 g/dL (12.0-16.0); Mean Corpuscular Hemoglobin 31.7 pg (27.0-31.0); Platelet Count 454 thou/uL (130-400); RBC Distribution Width 13.3 % (11.5-14.5); Red Blood Cell (RBC) Count 3.12 mill/uL (4.20-5.40)
[2018-02-18 05:51] LABS: Anion Gap 10 mmol/L (10-20); BUN (Urea Nitrogen) 31 mg/dL (9.8-20.1); Calc. Creatinine Clearance 24 mL/min (70-130); Calcium 9.6 mg/dL (7.8-10.44); Carbon Dioxide 29 mmol/L (23-31); Chloride 106 mmol/L (98-107); Estimated GFR-MDRD 39; Glucose 134 mg/dL (83-110); Potassium 3.8 mmol/L (3.5-5.1); Sodium 141 mmol/L (136-145)
[2018-02-18] MEDS: Aspirin 325 MG TAB PO SCH (10:01)
[2018-02-18] MEDS: Propranolol HCl LA 80 MG CAP PO SCH (10:02)
[2018-02-18] MEDS: Lactinex Tablet PO SCH ×2 (10:02→20:45)
[2018-02-18] MEDS: Saccharomyces boulardii 250 MG CAP PO SCH (10:02)
[2018-02-18] MEDS: Docusate 100 MG CAP PO SCH ×2 (10:02→20:44)
[2018-02-18] MEDS: Enoxaparin Sodium 30 MG/0.3 ML SYRINGE SC SCH (10:02)
[2018-02-18] MEDS: Multivitamin W/ Minerals 1 TAB PO SCH (10:02)
[2018-02-18] MEDS: Ferrous Sulfate 325 MG TAB PO SCH ×2 (10:02→20:45)
--- NOTE | 2018-02-18 13:53 | PDOC.PN ---
- Subjective Encounter Start Date: 02/18/18 Encounter Start Time: 13:51 Feels well. No complaints. - Objective Resuscitation Status: Resuscitation Status FULL:Full Resuscitation Vital Signs & Weight: Vital Signs (12 hours) Temp Pulse Resp BP Pulse Ox 02/18/18 10:52 77 14 97 02/18/18 08:00 97.4 F L 90 16 95 02/18/18 07:54 97.4 F L 90 16 165/68 H 95 02/18/18 06:37 76 16 96 02/18/18 03:49 98.5 F 76 20 146/68 H 94 L Weight Admit Weight 108 lb 0.424 oz Weight 108 lb 0.424 oz I&O: 02/17/18 02/18/18 02/19/18 06:59 06:59 06:59 Intake Total 250 290 Balance 250 290 Result Diagrams: 02/18/18 04:59 02/18/18 04:59 Phys Exam - Physical Examination Constitutional: NAD Neck: no JVD, supple Respiratory: no wheezing, no rales, no rhonchi, clear to auscultation bilateral Cardiovascular: RRR, no significant murmur Gastrointestinal: soft, non-tender, no distention, positive bowel sounds Musculoskeletal: no edema Psychiatric: normal affect Dx/Plan (1) E-coli UTI Code(s): N39.0 - URINARY TRACT INFECTION, SITE NOT SPECIFIED; B96.20 - UNSP ESCHERICHIA COLI THE CAUSE OF DISEASES CLASSD ELSWHR Status: Acute Plan: [place]-sensitive. Can convert to po abx when she is ready to discharge. (2) UGIB (upper gastrointestinal bleed) Code(s): K92.2 - GASTROINTESTINAL HEMORRHAGE, UNSPECIFIED Status: Acute Plan: Had a second melanotic stool just now. Hgb very slightly lower today. Will consult GI. (3) Decubitus skin ulcer Code(s): L89.90 - PRESSURE ULCER OF UNSPECIFIED SITE, UNSPECIFIED STAGE Status : Acute Plan: Stage IV sacral decubitus. Wound care. (4) COPD (chronic obstructive pulmonary disease) Status: Chronic Qualifiers: Comment: Stable, not in exacerbation. (5) HTN (hypertension) Code(s): I10 - ESSENTIAL (PRIMARY) HYPERTENSION Status: Chronic Qualifiers: Comment: Fair control. Will resume home regimen. - Plan * .
[2018-02-18] MEDS: Ascorbic Acid 500 mg Chewable Tablet PO SCH (20:44)
[2018-02-18] MEDS: Acetaminophen 325 MG TAB PO PRN (20:45)
[2018-02-18] MEDS: Melatonin 3 MG TAB PO PRN (20:46)
[2018-02-18] MEDS: Ergocalciferol 1.25 MG(50,000 UNITS) CAP PO SCH (21:32)
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
[2018-02-19 04:26] LABS: #Eosinphils 0.2 thou/uL (0.0-0.7); #Lymphocytes 0.7 thou/uL (1.20-3.40); #Monocytes 0.7 thou/uL (0.11-0.59); %Basophils 0.1 % (0.0-1.0); %Eosinophils 2.2 % (0.0-10.0); %Lymphocytes 6.3 % (21.0-51.0); %Monocytes 6.3 % (0.0-10.0); %Neutrophils 85.2 % (42.0-75.0); Hemoglobin 8.9 g/dL (12.0-16.0); Mean Corpuscular HGB CONC 32.7 g/dL (32.0-36.0); Mean Corpuscular Hemoglobin 32.9 pg (27.0-31.0); Mean Platelet Volume 5.8 fL (7.4-10.4); Platelet Count 413 thou/uL (130-400); RBC Distribution Width 13.1 % (11.5-14.5); Red Blood Cell (RBC) Count 2.71 mill/uL (4.20-5.40); White Blood Cell (WBC) Count 10.6 thou/uL (4.8-10.8)
[2018-02-19 04:48] LABS: Anion Gap 11 mmol/L (10-20); BUN (Urea Nitrogen) 22 mg/dL (9.8-20.1); Calc. Creatinine Clearance 27 mL/min (70-130); Carbon Dioxide 27 mmol/L (23-31); Chloride 104 mmol/L (98-107); Estimated GFR-MDRD 44; Glucose 98 mg/dL (83-110); Potassium 3.8 mmol/L (3.5-5.1); Sodium 138 mmol/L (136-145)
[2018-02-19] MEDS: Propranolol HCl LA 80 MG CAP PO SCH (06:29)
[2018-02-19] MEDS ORDERED: Ergocalciferol 1.25 MG(50,000 UNITS) CAP PO SCH (09:00)
[2018-02-19] MEDS: Saccharomyces boulardii 250 MG CAP PO SCH (10:09)
[2018-02-19] MEDS: Ascorbic Acid 500 mg Chewable Tablet PO SCH ×2 (10:09→20:30)
[2018-02-19] MEDS: Lactinex Tablet PO SCH ×2 (10:09→20:31)
[2018-02-19] MEDS: Aspirin 325 MG TAB PO SCH (10:09)
[2018-02-19] MEDS: Multivitamin W/ Minerals 1 TAB PO SCH (10:10)
[2018-02-19] MEDS: Docusate 100 MG CAP PO SCH ×2 (10:12→20:31)
[2018-02-19] MEDS: Ferrous Sulfate 325 MG TAB PO SCH ×2 (10:13→20:31)
[2018-02-19] MEDS: Megestrol Acetate 800 MG/20 ML UDCUP PO SCH (10:14)
[2018-02-19] MEDS: Calcium Carbonate 600 MG TAB PO SCH (10:19)
--- NOTE | 2018-02-19 10:44 | OP ---
DATE OF PROCEDURE: 02/19/2018 PROCEDURE: Esophagogastroduodenoscopy (diagnostic). INDICATION FOR PROCEDURE: Melena. DESCRIPTION OF PROCEDURE: After the risks and the benefits of the procedure were explained to the pa tient including risks of bleeding, infection, perforation, reaction to anesthesia and/or pain, inform ed consent was obtained. The patient was then taken to the endoscopy suite where deep sedation was a dministered via propofol and anesthesia support. Once adequate sedation was achieved, the standard g astroscope was introduced into the mouth with intubation of the esophagus, stomach and the proximal s mall intestine with the findings listed findings listed below. The patient tolerated the procedure w ell with no immediate perioperative complications. FINDINGS: Esophagus: Normal appearing mucosa was seen in the proximal, mid and distal esophagus, an irregular Z-line was seen at the GE junction. The diaphragmatic pinch was seen at 45 cm while the GE junction was seen at 43 cm denoting a 2 cm hiatal hernia. Otherwise, there was no evidence of erosions, ulcer ations, mass lesions or active/recent bleeding. STOMACH: Normal appearing mucosa was seen in the gastric cardia, fundus, body, incisura and proximal antrum. A 1-2 mm linear erosion was seen in the antrum and the prepyloric region without any eviden ce of active/recent bleeding. Adjacent to it at a 5:00 or 4 o'clock position in relation to the pylo heike, a small 1-2 mm ulceration or what appeared to be a small ulceration was seen without any evidenc e of active/recent bleeding. Otherwise, there was no other evidence of erosions, ulcerations, mass l esions or active/recent bleeding. DUODENUM: Normal appearing mucosa was seen in both the duodenal bulb and second portion of the duode num. There is no evidence of erosions, ulcerations, mass lesions or active/recent bleeding. IMPRESSION: 1. 1-2 mm linear erosion and a 1-2 mm possible ulceration was seen in the gastric antrum in the prep yloric region without any evidence of active or recent bleeding (unlikely to be the source of black stools). 2. Two 2 cm hiatal hernia. RECOMMENDATIONS: 1. We will continue to trend H&H and transfuse as necessary to maintain an H&H of 7/21. 2. Would keep the patient on PPI 40 mg daily as part of protection for the gastric mucosa in light o f iron supplementation and NSAID use. 3. Would continue to trend H&H and transfuse as necessary to maintain an H&H of 03/10. 4. We will continue to monitor for signs of active gastrointestinal bleeding. 5. Repeat upper endoscopy is not indicated at this time. 6. Unless the patient has repeat episodes of melena and/or significantly decreasing H&H, further end oscopic evaluation is not indicated at this time. We will sign off at this time. Please call with any additional questions.
[2018-02-19] MEDS ORDERED: Nystatin Powder 15 GM BOT TOP PRN (12:35)
[2018-02-19] MEDS ORDERED: Lisinopril 5 MG TAB PO SCH (12:45)
[2018-02-19] MEDS ORDERED: PROPOFOL 200 MG/20 ML VIAL ONE (14:23)
[2018-02-19] MEDS ORDERED: Lidocaine 1% PF 5 ML VIAL ONE (14:23)
[2018-02-19] MEDS: Doxycycline 100 MG CAP PO SCH (20:31)
[2018-02-19] MEDS: Melatonin 3 MG TAB PO PRN (20:31)
[2018-02-19] MEDS: Acetaminophen 325 MG TAB PO PRN (20:32)
[2018-02-20 05:38] LABS: #Eosinphils 0.3 thou/uL (0.0-0.7); #Lymphocytes 0.8 thou/uL (1.20-3.40); #Monocytes 0.5 thou/uL (0.11-0.59); #Neutrophils 6.2 thou/uL (1.40-6.50); %Basophils 0.1 % (0.0-1.0); %Eosinophils 3.3 % (0.0-10.0); %Lymphocytes 9.7 % (21.0-51.0); %Monocytes 6.7 % (0.0-10.0); %Neutrophils 80.2 % (42.0-75.0); Hemoglobin 9.4 g/dL (12.0-16.0); Mean Corpuscular HGB CONC 32.2 g/dL (32.0-36.0); Mean Corpuscular Hemoglobin 32.3 pg (27.0-31.0); Mean Platelet Volume 6.1 fL (7.4-10.4); Platelet Count 415 thou/uL (130-400); RBC Distribution Width 13.2 % (11.5-14.5); Red Blood Cell (RBC) Count 2.91 mill/uL (4.20-5.40); White Blood Cell (WBC) Count 7.8 thou/uL (4.8-10.8)
[2018-02-20 05:59] LABS: Anion Gap 11 mmol/L (10-20); BUN (Urea Nitrogen) 20 mg/dL (9.8-20.1); Calc. Creatinine Clearance 29 mL/min (70-130); Calcium 9.2 mg/dL (7.8-10.44); Carbon Dioxide 26 mmol/L (23-31); Chloride 102 mmol/L (98-107); Estimated GFR-MDRD 49; Glucose 85 mg/dL (83-110); Potassium 4.3 mmol/L (3.5-5.1); Sodium 135 mmol/L (136-145)
[2018-02-20] MEDS ORDERED: Lisinopril 5 MG TAB PO SCH (09:00)
[2018-02-20] MEDS: Lactinex Tablet PO SCH (09:34)
[2018-02-20] MEDS: Ascorbic Acid 500 mg Chewable Tablet PO SCH (09:34)
[2018-02-20] MEDS: Calcium Carbonate 600 MG TAB PO SCH (09:34)
[2018-02-20] MEDS: Propranolol HCl LA 80 MG CAP PO SCH (09:35)
[2018-02-20] MEDS: Multivitamin W/ Minerals 1 TAB PO SCH (09:35)
[2018-02-20] MEDS: Doxycycline 100 MG CAP PO SCH (09:36)
[2018-02-20] MEDS: Docusate 100 MG CAP PO SCH (09:36)
[2018-02-20] MEDS: Megestrol Acetate 800 MG/20 ML UDCUP PO SCH (09:36)
[2018-02-20] MEDS: Saccharomyces boulardii 250 MG CAP PO SCH (09:36)
[2018-02-20] MEDS: Aspirin 325 MG TAB PO SCH (09:36)
[2018-02-20] MEDS: Ferrous Sulfate 325 MG TAB PO SCH (09:39)
--- NOTE | 2018-02-20 09:58 | PDOC.PN ---
- Subjective Encounter Start Date: 02/19/18 Encounter Start Time: 11:00 PAtient is seeen today, lying in bed no discomfort, with h/o Decubitus ulcer infected. Continuing IV antibitoics. - Objective Resuscitation Status: Resuscitation Status FULL:Full Resuscitation MAR Reviewed: Yes Vital Signs & Weight: Vital Signs (12 hours) Temp Pulse Resp BP BP Pulse Ox Pulse Ox 02/20/18 09:35 96 127/76 02/20/18 08:20 92 L 02/20/18 07:55 98.5 F 84 20 156/71 H 94 L 02/20/18 07:15 80 12 02/20/18 03:12 95 Weight Admit Weight 108 lb 0.424 oz Weight 108 lb 0.424 oz I&O: 02/19/18 02/20/18 02/21/18 06:59 06:59 06:59 Intake Total 930 1250 Balance 930 1250 Result Diagrams: 02/20/18 04:55 02/20/18 04:55 Radiology Reviewed by me: Yes Phys Exam - Physical Examination HEENT: PERRLA, moist MMs Neck: no nodes, no JVD Respiratory: no wheezing, no rales Cardiovascular: RRR, no significant murmur Gastrointestinal: soft, non-tender Musculoskeletal: no edema, pulses present Neurological: non-focal, normal sensation Lymphatic: no nodes Psychiatric: normal affect, A&O x 3 Skin: no rash Dx/Plan (1) Decubitus skin ulcer Code(s): L89.90 - PRESSURE ULCER OF UNSPECIFIED SITE, UNSPECIFIED STAGE Status : Acute Comment: PT is Not on MRSA treatment, Will add Doxycyclin 100mg IV BID can be changed to Po at dischagre. (2) E-coli UTI Code(s): N39.0 - URINARY TRACT INFECTION, SITE NOT SPECIFIED; B96.20 - UNSP ESCHERICHIA COLI THE CAUSE OF DISEASES CLASSD ELSWHR Status: Acute Comment: Continue on levaquine. (3) NAVARRO (acute kidney injury) Code(s): N17.9 - ACUTE KIDNEY FAILURE, UNSPECIFIED Status: Acute Comment: Improving with hydration. Has acute on chronic renal failure. (4) Acute encephalopathy Code(s): G93.40 - ENCEPHALOPATHY, UNSPECIFIED Status: Acute Comment: Improving with hydration and Will change Abx to Levofloxacin 250 mg IV daily. (5) Atrial fibrillation with RVR Code(s): I48.91 - UNSPECIFIED ATRIAL FIBRILLATION Status: Acute Comment: HR Uncontrolled on PO Propranolol. Tried Cardizem 15mg bolus no effect, sisnce pt responded to BB last time, will do IV metoprolol 5mg Now. Will consult Cardiology, Will repeat Echo. (6) HTN (hypertension) Code(s): I10 - ESSENTIAL (PRIMARY) HYPERTENSION Status: Chronic Qualifiers: Comment: Fair control. Will resume home regimen. (7) Physical deconditioning Code(s): R53.81 - OTHER MALAISE Status: Chronic - Plan cont current plan of care, continue antibiotics, PT/OT, social services analyst, incentive spirometry, out of bed/ambulate, DVT proph w/lovenox * . Review of Systems - Review of Systems Constitutional: negative: fever, chills, sweats, weakness, malaise, other Eyes: negative: Pain, Vision Change, Conjunctivae Inflammation, Eyelid Inflammation, Redness, Other ENT: negative: Ear Pain, Ear Discharge, Nose Pain, Nose Discharge, Nose Congestion, Mouth Pain, Mouth Swelling, Throat Pain, Throat Swelling, Other Respiratory: negative: Cough, Dry, Shortness of Breath, Hemoptysis, SOB with Excertion, Pleuritic Pain, Sputum, Wheezing Cardiovascular: negative: chest pain, palpitations, orthopnea, paroxysmal nocturnal dyspnea, edema, light headedness, other Gastrointestinal: negative: Nausea, Vomiting, Abdominal Pain, Diarrhea, Constipation, Melena, Hematochezia, Other Genitourinary: negative: Dysuria, Frequency, Incontinence, Hematuria, Retention , Other Skin: Other (Decubitus ulcers on the Buttuck. Infected) - Medications/Allergies Allergies/Adverse Reactions: Allergies Allergy/AdvReac Type Severity Reaction Status Date / Time codeine Allergy Verified 05/30/17 17:52 metronidazole [From Flagyl] Allergy Verified 05/30/17 17:52 morphine Allergy Verified 05/30/17 17:53 nitrofurantoin Allergy Verified 05/30/17 17:53 [From Macrobid] penicillin Allergy Verified 05/30/17 17:53 Sulfa (Sulfonamide AdvReac Intermediate Verified 05/30/17 17:55 Antibiotics) Medications: Current Medications Acetaminophen (Tylenol) 650 mg PO Q4H PRN PRN Reason: Pain Last Admin: 02/19/18 20:32 Dose: 650 mg Acidophilus (Floranex) 1 tab PO BID [facility] Last Admin: 02/20/18 09:34 Dose: 1 tab Albuterol/Ipratropium (Duoneb) 3 ml NEB QID-RT [facility] Last Admin: 02/20/18 07:15 Dose: 3 ml Ascorbic Acid (Vitamin C) 500 mg PO BID [facility] Last Admin: 02/20/18 09:34 Dose: 500 mg Aspirin (Aspirin) 325 mg PO DAILY [facility] Last Admin: 02/20/18 09:36 Dose: 325 mg Calcium Carbonate (Caltrate) 600 mg PO DAILY [facility] Last Admin: 02/20/18 09:34 Dose: 600 mg Docusate Sodium (Colace) 100 mg PO BID [facility] Last Admin: 02/20/18 09:36 Dose: 100 mg Doxycycline Hyclate (Vibramycin) 100 mg PO BID [facility] Last Admin: 02/20/18 09:36 Dose: 100 mg Ergocalciferol (Drisdol) 1.25 mg PO Q7D [facility] Last Admin: 02/19/18 10:11 Dose: 1.25 mg Ferrous Sulfate (Feosol) 325 mg PO BID [facility] Last Admin: 02/20/18 09:39 Dose: 325 mg Levofloxacin 250 mg/ Device 50 mls @ 100 mls/hr IVPB Q24HR [facility] Last Admin: 02/20/18 05:50 Dose: 50 mls Iron/Minerals/Multivitamins (Theragran M) 1 tab PO DAILY [facility] Last Admin: 02/20/18 09:35 Dose: 1 tab Lisinopril (Zestril) 5 mg PO DAILY [facility] Last Admin: 02/20/18 09:35 Dose: 5 mg Megestrol Acetate (Megace) 400 mg PO DAILY [facility] Last Admin: 02/20/18 09:36 Dose: 400 mg Melatonin (Melatonin) 6 mg PO HSPRN PRN PRN Reason: Insomnia Last Admin: 02/19/18 20:31 Dose: 6 mg Nystatin (Mycostatin Powder) 0 gm TOP BIDPRN PRN PRN Reason: YEAST RASH Pantoprazole Sodium (Protonix) 40 mg PO DAILY [facility] Last Admin: 02/20/18 09:36 Dose: 40 mg Propranolol HCl (Inderal La) 80 mg PO DAILY [facility] Last Admin: 02/20/18 09:35 Dose: 80 mg Saccharomyces Boulardii (Florastor) 250 mg PO DAILY [facility] Last Admin: 02/20/18 09:36 Dose: 250 mg Sodium Chloride (Flush - Normal Saline) 10 ml IVF Q12HR [facility] Last Admin: 02/20/18 09:39 Dose: 10 ml Sodium Chloride (Flush - Normal Saline) 10 ml IVF PRN PRN PRN Reason: Saline Flush Last Admin: 02/17/18 04:11 Dose: 10 ml
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
--- NOTE | 2018-02-20 12:29 | PQF ---
DATE: 02-20-18 ATTN: DR. ESTER BARRY Please exercise your independent, professional judgment in responding to the clarification form. Clinical indicators are provided on the bottom of this form for your review Please check appropriate box(es): [ ] Sepsis due to: ( UTI, Sacral Decubitus Ulcer stage 4, etc.) [ ] SIRS due to non-infectious process (please specify etiology) [ ] with organ dysfunction [ ] without organ dysfunction [ ] Severe sepsis with acute organ dysfunction of: (Examples: encephalopathy, acute kidney failure, other) [ ] Localized infection without sepsis [ ] Other diagnosis [ ] Unable to determine In addition, please specify: Present on Admission (POA): [ ] Yes [ ] No [ ] Unable to determine For continuity of documentation, please document condition throughout progress notes and discharge summary. Thank You. CLINICAL INDICATORS - SIGNS / SYMPTOMS / LABS H&P: BEING ADMITTED FOR A UTI, SHE IS AWAKE, ALERT, ORIENTED X1. WBC: 02-16-18: 12.9 02-18-18: 11.0 BANDS: 02-16-18: 16 NONDIABETIC HYPERGLYCEMIA: 02-18-18: 134 PN 02-18-18: STAGE IV SACRAL DECUBITUS, E COLI UTI GFR: 02-16-18: 26 02-18-18: 39 02-19-18: 44 02-20-18: 49 CREATININE: 02-16-18: 1.84, 02-18-18: 1.30 02-19-18: 1.16 02-20-18: 1.06 BUN: 02-16-18: 49 02-18-18: 31 02-19-18: 22 02-20-18: 20 RISK FACTORS: PN 02-18-18: STAGE IV SACRAL DECUBITUS, E COLI UTI ADVANCED AGE TREATMENTS: ER: IVF, ROCEPHIN, LEVAQUIN (This form is maintained as a part of the permanent medical record) 2014 [employer] All Rights Reserved [email or web address] Office: [phone] [facility]
--- NOTE | 2018-02-20 13:52 | PDOC.PN ---
- Subjective Encounter Start Date: 02/20/18 Encounter Start Time: 10:00 Patient is seen today, She is Admited with UTI, she feels very drowsy and weak today. Will order PT/OT. - Objective Resuscitation Status: Resuscitation Status FULL:Full Resuscitation Vital Signs & Weight: Vital Signs (12 hours) Temp Pulse Pulse Resp BP BP BP 02/20/18 10:41 80 12 02/20/18 09:35 96 127/76 02/20/18 09:22 74 127/76 02/20/18 08:20 02/20/18 07:55 98.5 F 84 20 156/71 H 02/20/18 07:15 80 12 02/20/18 03:12 Pulse Ox Pulse Ox 02/20/18 10:41 02/20/18 09:35 02/20/18 09:22 93 L 02/20/18 08:20 92 L 02/20/18 07:55 94 L 02/20/18 07:15 02/20/18 03:12 95 Weight Admit Weight 108 lb 0.424 oz Weight 108 lb 0.424 oz I&O: 02/19/18 02/20/18 02/21/18 06:59 06:59 06:59 Intake Total 930 1250 120 Balance 930 1250 120 Result Diagrams: 02/20/18 04:55 02/20/18 04:55 Dx/Plan (1) Decubitus skin ulcer Code(s): L89.90 - PRESSURE ULCER OF UNSPECIFIED SITE, UNSPECIFIED STAGE Status : Acute Comment: PT is Not on MRSA treatment, Will add Doxycyclin 100mg IV BID can be changed to Po at dischagre. (2) E-coli UTI Code(s): N39.0 - URINARY TRACT INFECTION, SITE NOT SPECIFIED; B96.20 - UNSP ESCHERICHIA COLI THE CAUSE OF DISEASES CLASSD ELSWHR Status: Acute Comment: Continue on levaquine. (3) NAVARRO (acute kidney injury) Code(s): N17.9 - ACUTE KIDNEY FAILURE, UNSPECIFIED Status: Acute Comment: Improving with hydration. Has acute on chronic renal failure. (4) Acute encephalopathy Code(s): G93.40 - ENCEPHALOPATHY, UNSPECIFIED Status: Acute Comment: Improving with hydration and Will change Abx to Levofloxacin 250 mg IV daily. (5) Atrial fibrillation with RVR Code(s): I48.91 - UNSPECIFIED ATRIAL FIBRILLATION Status: Acute Comment: HR Uncontrolled on PO Propranolol. Tried Cardizem 15mg bolus no effect, sisnce pt responded to BB last time, will do IV metoprolol 5mg Now. Will consult Cardiology, Will repeat Echo. (6) HTN (hypertension) Code(s): I10 - ESSENTIAL (PRIMARY) HYPERTENSION Status: Chronic Qualifiers: Comment: Fair control. Will resume home regimen. (7) Physical deconditioning Code(s): R53.81 - OTHER MALAISE Status: Chronic - Plan * .
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
[2018-02-20] MEDS: Acetaminophen 325 MG TAB PO PRN (16:23)
[2018-02-20 16:32] VITALS: BP 145/65; TEMP 98.7
--- NOTE | 2018-02-24 16:16 | EKG ---
Test Reason : FALL Blood Pressure : / mmHG Vent. Rate : 091 BPM Atrial Rate : 091 BPM P-R Int : 124 ms QRS Dur : 130 ms QT Int : 358 ms P-R-T Axes : 073 084 062 degrees QTc Int : 440 ms Sinus rhythm with marked sinus arrhythmia Non-specific intra-ventricular conduction block No acute changes from 01/08/2018 Confirmed by NATALIA HARTLEY ([id number]), script editor EILEEN SINGLETON ([id number]) on 02/24/2018 4:15:36 PM Referred By: Confirmed By:NATALIA HARTLEY
== END 2018-02-20 17:56 | DRG 689 ==
LOC: ERS 18:24 → T4-A 23:34
PROVIDERS: ADMIT Internal Medicine; ATTEND Internal Medicine
PROC: 0DJ08ZZ Inspection of Upper Intestinal Tract, Via Natural or Artificial Opening Endoscopic (ICD-10-PCS; principal; 2018-02-19)
DX: N39.0 Urinary tract infection, site not specified (principal); L89.314 Pressure ulcer of right buttock, stage 4; G93.40 Encephalopathy, unspecified; S32.592A Other specified fracture of left pubis, initial encounter for closed fracture; N17.9 Acute kidney failure, unspecified; K92.1 Melena; E46 Unspecified protein-calorie malnutrition; Z68.1 Body mass index [BMI] 19.9 or less, adult; I47.1 Supraventricular tachycardia; Z91.81 History of falling; J44.9 Chronic obstructive pulmonary disease, unspecified; W19.XXXA Unspecified fall, initial encounter; B96.1 Klebsiella pneumoniae [K. pneumoniae] as the cause of diseases classified elsewhere; B95.62 Methicillin resistant Staphylococcus aureus infection as the cause of diseases classified elsewhere; B95.2 Enterococcus as the cause of diseases classified elsewhere; F03.90 Unspecified dementia, unspecified severity, without behavioral disturbance, psychotic disturbance, mood disturbance, and anxiety; B96.20 Unspecified Escherichia coli [E. coli] as the cause of diseases classified elsewhere; I48.91 Unspecified atrial fibrillation; R53.81 Other malaise; K44.9 Diaphragmatic hernia without obstruction or gangrene; G89.29 Other chronic pain; M54.5 Low back pain; M19.90 Unspecified osteoarthritis, unspecified site; G25.0 Essential tremor; I12.9 Hypertensive chronic kidney disease with stage 1 through stage 4 chronic kidney disease, or unspecified chronic kidney disease; N18.3 Chronic kidney disease, stage 3 (moderate); Z87.440 Personal history of urinary (tract) infections; R62.7 Adult failure to thrive; E78.00 Pure hypercholesterolemia, unspecified; K21.9 Gastro-esophageal reflux disease without esophagitis
CPT/HCPCS: 36415; 51701; 70450; 72125; 80048; 80053; 81003; 81015; 82274; 82553; 84484; 85025; 85610; 85730; 86850; 86900; 86901; 87070; 87077; 87086; 87186; 87205; 93005; 94640; 96361; 96374; A4216; A4353; G8978-GP-CL; G8979-GP-CJ; G8987-GO-CL; G8988-GO-CK; J0696; J1650; J1956; J2001; J2704; J7050; J7620

== ENCOUNTER 2018-04-12 08:52 | Inpatient (IN) | payer MEDICARE, MEDICAID ==
[2018-04-12] MEDS ORDERED: Naloxone HCl 2 mg/2 ml Syringe ONE (08:58)
[2018-04-12 09:36] LABS: #Basophils 0.1 thou/uL (0.0-0.2); #Eosinphils 0.3 thou/uL (0.0-0.7); #Monocytes 0.6 thou/uL (0.11-0.59); #Neutrophils 7.9 thou/uL (1.40-6.50); %Eosinophils 3.1 % (0.0-10.0); %Monocytes 5.9 % (0.0-10.0); Hemoglobin 11.2 g/dL (12.0-16.0); Mean Corpuscular HGB CONC 30.6 g/dL (32.0-36.0); Mean Corpuscular Hemoglobin 32.7 pg (27.0-31.0); Mean Platelet Volume 6.2 fL (7.4-10.4); Platelet Count 506 thou/uL (130-400); RBC Distribution Width 12.8 % (11.5-14.5); Red Blood Cell (RBC) Count 3.43 mill/uL (4.20-5.40); White Blood Cell (WBC) Count 9.8 thou/uL (4.8-10.8)
[2018-04-12 09:37] LABS: pH, Arterial 7.03 (7.35-7.45)
[2018-04-12 09:38] LABS: Actual Bicarbonate (HCO3a) 37.6 mEq/L (22-28); Base Excess (BEa) 3.1 mEq/L (-2.0 to +3.0); CO2 Tension 146.2 mmHg (35.0-45.0); O2 Tension (PaO2) 49.4 mmHg (> 60.0)
[2018-04-12 09:39] LABS: Calcium, Ionized 1.3 mmol/L (1.12-1.30); Carboxyhemoglobin (COHb) 0.2 gm% (0.0-3.0); Hemoglobin (Hb) 11.6 g/dL (12.0-16.0); Potassium - ABG Lab 4.7 mmol/L (3.70-5.30)
[2018-04-12 09:40] LABS: Analyzer IN Cardio ER; Puncture Site RR
--- NOTE | 2018-04-12 09:40 | RAD ---
CHEST ONE VIEW: History: 87-year-old female with history of altered mental status and unresponsiveness. Comparison: 04-08-18 FINDINGS: NG tube and endotracheal tubes are in place. Mild bilateral hyperinflation and chronic lung changes w ith some increased linear and interstitial markings bilaterally. No confluent pneumonia or pleural ef fusion or overt edema. IMPRESSION: Minimal hyperinflation and overall stable appearing chronic lung changes. NG tube and endotracheal tu bes in satisfactory location. No cardiomegaly. No pneumonia or acute edema. Atherosclerosis of the ao rta with ectasia. POS: C
[2018-04-12 09:49] LABS: pH, Arterial 7.44 (7.35-7.45)
[2018-04-12 09:50] LABS: Actual Bicarbonate (HCO3a) 27.4 mEq/L (22-28); Carboxyhemoglobin (COHb) 0.3 gm% (0.0-3.0); Hemoglobin (Hb) 11.4 g/dL (12.0-16.0)
[2018-04-12 09:51] LABS: ALT (SGPT) 9 U/L (8-55); AST (SGOT) 13 U/L (5-34); Albumin 2.9 g/dL (3.4-4.8); Alkaline Phosphatase 49 U/L (40-150); Anion Gap 11 mmol/L (10-20); BUN (Urea Nitrogen) 23 mg/dL (9.8-20.1); Bilirubin, Total Less than 0.2 mg/dL (0.2-1.2); Calc. Creatinine Clearance 0 mL/min (70-130); Calcium 9.3 mg/dL (7.8-10.44); Carbon Dioxide 27 mmol/L (23-31); Chloride 107 mmol/L (98-107); Estimated GFR-MDRD 56; Globulin 3.2 g/dL (2.4-3.5); Glucose 101 mg/dL (83-110); Potassium 5.2 mmol/L (3.5-5.1); Protein, Total 6.1 g/dL (6.0-8.3); Sodium 140 mmol/L (136-145)
[2018-04-12 09:51] LABS: Analyzer IN Cardio ER; Calcium, Ionized 1.3 mmol/L (1.12-1.30); Potassium - ABG Lab 4.5 mmol/L (3.70-5.30); Puncture Site LB
[2018-04-12 09:52] LABS: CKMB 1.4 ng/mL (0-6.6); Troponin I Less than 0.010 ng/mL (< 0.028)
[2018-04-12 10:23] LABS: Bilirubin Negative (Negative); Blood, Urine Negative (Negative); Clarity TURBID (Clear); Glucose, Urine (Dipstick) Negative (Negative); Leukocyte Trace (Negative); Nitrite Negative (Negative); Protein, Urine (Dipstick) 30 mg/dL (Neg-Trace); Specific Gravity, Urine 1.014 (1.002-1.036); Urobilinogen 0.2 mg/dL (0.2-1.0); pH, Urine 5.5 (5.0-9.0)
--- NOTE | 2018-04-12 10:23 | CT ---
CT BRAIN WITHOUT CONTRAST: Date: 04/12/18 HISTORY: Altered mental status. FINDINGS: Comparison made with exam of 02/16/18. Changes of cortical atrophy and chronic small vessel ischemic disease are again seen. The ventricular size is appropriate and the basilar cisterns are patent. No evidence of acute infarct, hemorrhage, m idline shift, or abnormal extra-axial fluid collections are seen. The bony calvarium is intact. The v isualized paranasal sinuses and mastoid air cells are well aerated. IMPRESSION: No CT evidence of acute intracranial process. POS: [facility]
[2018-04-12 10:25] LABS: Bacteria/HPF None Seen HPF (None Seen); Pathc Cast-AUWi Flag 1.74 (0-2.49); RBC/HPF 0-3 HPF (0-3)
[2018-04-12 10:35] LABS: Hyaline Casts/LPF 4-6 HYALINE CAST LPF (0-3 Hyaline)
[2018-04-12 10:36] LABS: Crystals/HPF RARE AMORPH URATES HPF (Negative)
[2018-04-12] MEDS ORDERED: cefTRIAXone\\ROCEPHIN 2 GM VIAL ONE (10:57)
[2018-04-12] MEDS ORDERED: Insulin Regular 300 UNITS/3 ML VIAL SC PRN (11:23)
[2018-04-12] MEDS ORDERED: Ondansetron HCl/PF 4 MG/2 ML Vial IVP PRN (11:23)
[2018-04-12] MEDS ORDERED: Acetaminophen 650 MG/20.3 ML UDCUP PO PRN (11:23)
[2018-04-12] MEDS ORDERED: Acetaminophen 650 MG Suppository PR PRN (11:23)
[2018-04-12] MEDS ORDERED: Norepinephrine 8 MG/0.9% NS 250 ML IVPB PRN (11:23)
[2018-04-12] MEDS ORDERED: CCU Electrolyte Replacement 1 EACH IVPB ONE (11:23)
[2018-04-12] MEDS ORDERED: Ventilator Sedation Protocol 1 EACH FS SCH (11:30)
[2018-04-12] MEDS ORDERED: [UNRECOGNIZED DRUG - REMARK] IVPB PRN (11:32)
[2018-04-12] MEDS ORDERED: Potassium Phosphate 9 MMOL in Sodium Chloride 0.9% 100 ML IVPB PRN (11:40)
[2018-04-12] MEDS ORDERED: CCU ELECTROLYTE REPLACEMENT PROTOCOL FS PRN (11:40)
[2018-04-12] MEDS ORDERED: Potassium Phosphate 15 MMOL in Sodium Chloride 0.9% 250 ML 250 ML IV PRN (11:40)
[2018-04-12] MEDS ORDERED: Potassium Chloride 20 MEQ TAB PO PRN (11:40)
[2018-04-12] MEDS ORDERED: Magnesium Oxide 400 MG TAB PO PRN ×2 (11:40)
[2018-04-12] MEDS ORDERED: Potassium Chloride 40 MEQ in Sodium Chloride 0.9% 250 ML 250 ML IVPB PRN (11:40)
[2018-04-12] MEDS ORDERED: Magnesium 2 GM/NS 0.9% 100 ML 2 GM in Premix Bag 1 BAG IVPB PRN (11:40)
[2018-04-12] MEDS ORDERED: Potassium Phosphate 12 MMOL in Sodium Chloride 0.9% 250 ML 250 ML IV PRN (11:40)
[2018-04-12] MEDS ORDERED: Potassium Chloride 40 MEQ in Premix Bag 1 BAG IVPB PRN (11:40)
[2018-04-12] MEDS ORDERED: Vancomycin HCl 1 GM in Sodium Chloride 0.9% 250 ML 250 ML IVPB SCH (11:45)
[2018-04-12] MEDS ORDERED: Sodium Chloride 0.9% 1,000 ML IV SCH (11:45)
[2018-04-12] MEDS ORDERED: DISCONTINUE PREVIOUS NARCOTIC PAIN MEDICATIONS AND BENZODIAZEPINES FS SCH (11:53)
[2018-04-12] MEDS ORDERED: fentaNYL Citrate/PF 2,000 MCG in Sodium Chloride 0.9% 60 ML IV SCH (11:53)
[2018-04-12] MEDS ORDERED: Fentanyl BOLUS 250 ML IVPB PRN (11:53)
[2018-04-12] MEDS ORDERED: Propofol BOLUS 1,000 MG/100 ML VIAL IV PRN (11:53)
[2018-04-12] MEDS ORDERED: Lorazepam 2 MG/ML VIAL SLOW IVP PRN (11:53)
[2018-04-12] MEDS ORDERED: Aztreonam 1 GM in Sodium Chloride 0.9% 100 ML IVPB SCH (13:00)
[2018-04-12] MEDS ORDERED: Furosemide 40 MG/4 ML VIAL SLOW IVP SCH (14:15)
[2018-04-12] MEDS: Propofol 1,000 MG/100 ML VIAL IV PRN (14:48)
[2018-04-12] MEDS ORDERED: Clindamycin 150 MG CAP PER TUBE SCH (15:00)
--- NOTE | 2018-04-12 15:30 | PDOC.PULCN ---
<Florentin Kinney - Last Filed: 04/12/18 16:15> Pulmonology Consult: HPI - Date of Consult Date: 04/12/18 Time: 15:26 - Consult Details Reason for Consult: ICU admission - History of Present Illness HPI: BOBBY VINSON is a 87 year-old F here in acute respiratory distress after being discharged yesterday following an admission for UTI. She was found this morning at her retirement acutely short of breath and EMS was called. In the ED she was found to by hypoxic and intubated. Initial AGB resulted in pCO2 of 146 after intubation this corrected to 41. Pt has a known hx of COPD, CHF, HTN, afib and an infected sacral ulcer. 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 Dementia Sacral decubitus ulcer - Social History Smoking Status: Never smoker Alcohol Use: none Drug Use History: none Living Situation: retirement resident Pulmonology Consult: Meds - Medications MAR Reviewed: Yes Medications: Current Medications Acetaminophen (Tylenol Elixir) 650 mg PO Q6H PRN PRN Reason: Fever > 101 or Mild Pain Acetaminophen (Tylenol) [address] Q6H PRN PRN Reason: Fever > 101 or Mild Pain Albuterol/Ipratropium (Duoneb) 3 ml NEB [id number] PRN PRN Reason: SOB &/or Wheezing Cefuroxime Axetil (Ceftin) 250 mg PER TUBE Q12HR [facility] Clindamycin HCl (Cleocin) 300 mg PER TUBE TID [facility] Stop: 04/21/18 15:01 Last Admin: 04/12/18 15:06 Dose: 300 mg Enoxaparin Sodium (Lovenox) 40 mg SC 0900 [facility] Famotidine (Pepcid) 20 mg SLOW IVP Q12HR [facility] Furosemide (Lasix) 40 mg SLOW IVP NOW [facility] Stop: 04/12/18 16:00 Last Admin: 04/12/18 14:48 Dose: 40 mg Norepinephrine Bitartrate (Levophed) 250 mls @ 0 mls/hr IVPB PRN PRN; Protocol PRN Reason: To maintain MAP > 65 Potassium Chloride 40 meq/ (Sodium Chloride) 270 mls @ 135 mls/hr IVPB ASDIR PRN PRN Reason: FOR SERUM K+ 2.5 - 3.5 Potassium Chloride 40 meq/ (Device) 100 mls @ 50 mls/hr IVPB ASDIR PRN PRN Reason: FOR SERUM K+ 2.5 - 3.5 Magnesium Sulfate 1 gm/ Sodium (Chloride) 102 mls @ 102 mls/hr IV PRN PRN PRN Reason: MAG LEVEL 1.4 - 2.0 Magnesium Sulfate 2 gm/ Device 100 mls @ 100 mls/hr IVPB ASDIR PRN PRN Reason: MAGNESIUM < 1.4 Potassium Phosphate 9 mmol/ (Sodium Chloride) 103 mls @ 25.75 mls/hr IVPB ASDIR PRN PRN Reason: Phosphate 1.0-1.8 Potassium Phosphate 12 mmol/ (Sodium Chloride) 254 mls @ 63.5 mls/hr IV ASDIR PRN PRN Reason: Serum phosphate 0.5-0.9 Potassium Phosphate 15 mmol/ (Sodium Chloride) 255 mls @ 63.75 mls/hr IV ASDIR PRN PRN Reason: Serum Phos < 0.5 Fentanyl Citrate 2,000 mcg/ (Sodium Chloride) 100 mls @ 0 mls/hr IV INF [facility]; Protocol Stop: 05/12/18 11:53 Fentanyl Citrate (Fentanyl Bolus) 250 mls @ 0 mls/hr IVPB PRN PRN PRN Reason: Breakthrough pain/agitation Stop: 05/12/18 11:53 Insulin Human Regular (Humulin R) 0 units SC .MILD SLIDING SCALE PRN PRN Reason: Mild Correctional Scale Lorazepam (Ativan) 2 mg SLOW IVP Q1H PRN PRN Reason: Breakthrough agitation Stop: 05/12/18 11:53 Magnesium Oxide (Magnesium Oxide) 400 mg PO BIDPRN PRN PRN Reason: FOR SERUM MAG 1.4 - 2.0 Magnesium Oxide (Magnesium Oxide) 800 mg PO PRN PRN PRN Reason: FOR SERUM MAG < 1.4 Miscellaneous Medication (Pharmacy To Dose) 1 each IVPB PRN PRN PRN Reason: Pharmacy to dose Miscellaneous Medication (Phos-Nak) 1 pkt PO TIDPRN PRN PRN Reason: FOR PHOS LEVEL 1.0 - 1.8 Miscellaneous Medication (Phos-Nak) 2 pkt PO TIDPRN PRN PRN Reason: FOR PHOS LEVEL 0.5 - 1.0 Morphine Sulfate (Morphine Sulfate) 2 mg SLOW IVP Q1H PRN PRN Reason: BREAKTHROUGH PAIN/AGITATION Stop: 05/12/18 11:53 Ccu Electrolyte (Replacement Protocol) 0 each FS PRN PRN PRN Reason: FOR ELECTROLYTE REPLACEMENT Discontinue Previous Narcotic Pain Medications And Benzodiazepines 1 each FS .ONE [facility] Stop: 05/12/18 11:53 Ondansetron HCl (Zofran) 4 mg IVP Q6H PRN PRN Reason: Nausea/Vomiting Pantoprazole Sodium (Protonix) 40 mg PO DAILY [facility] Potassium Chloride (K-Dur) 40 meq PO ASDIR PRN PRN Reason: FOR SERUM K+ 2.5 - 3.5 Potassium Chloride (Klor-Con) 40 meq PER TUBE ASDIR PRN PRN Reason: FOR SERUM K+ 2.5-3.5 Propofol (Diprivan) 1,000 mg IV INF PRN; Protocol PRN Reason: TO ACHIEVE GOAL RASS Stop: 05/12/18 11:53 Last Admin: 04/12/18 14:48 Dose: 1,000 mg Propofol (Diprivan Bolus) 20 mg IV Q5MIN PRN PRN Reason: BREAKTHROUGH AGITATION Stop: 05/12/18 11:53 - Allergies Allergies/Adverse Reactions: Allergies Allergy/AdvReac Type Severity Reaction Status Date / Time codeine Allergy Verified 05/30/17 17:52 metronidazole [From Flagyl] Allergy Verified 05/30/17 17:52 morphine Allergy Verified 05/30/17 17:53 nitrofurantoin Allergy Verified 05/30/17 17:53 [From Macrobid] penicillin Allergy Verified 05/30/17 17:53 Sulfa (Sulfonamide AdvReac Intermediate Verified 05/30/17 17:55 Antibiotics) Pulmonology Consult: PE - Physical Exam Deviation from normal: Intubated and sedated HEENT: sclera anicteric Deviation from normal: Pupils pinpoint and sluggish to react Neck: no JVD Cardiovascular: no significant murmur Deviation from normal: irregularly irregular Respiratory: clear to auscultation bilaterally Gastrointestinal: soft, no distention, positive bowel sounds Deviation from normal: 1+ pitting edema in LE b/l Deviation from normal: Retracts from pain Skin: no rash, normal turgor Pulmonology Consult: Results - Labs Result Diagrams: 04/12/18 09:16 04/12/18 09:16 - ABG Interpretation ABG Results: ABG pH 7.44 (7.35-7.45) 04/12/18 09:45 ABG pCO2 41.0 mmHg (35.0-45.0) 04/12/18 09:45 ABG O2 Sat Calc/Frank 99.4 % (94.0-98.0) H 04/12/18 09:45 ABG Base Excess 3.0 mEq/L (-2.0 to +3.0) 04/12/18 09:45 - Radiology Interpretation Chest x-ray Status: image reviewed by me, report reviewed by me (Hyperinflation. No acute process) CT scan - head Status: image reviewed by me, report reviewed by me (no acute process) Pulmonology Consult: A/P - Problem (1) Acute respiratory failure with hypoxia and hypercapnia Current Visit: Yes Code(s): J96.01 - ACUTE RESPIRATORY FAILURE WITH HYPOXIA; J96.02 - ACUTE RESPIRATORY FAILURE WITH HYPERCAPNIA Status: Acute (2) COPD exacerbation Current Visit: Yes Code(s): J44.1 - CHRONIC OBSTRUCTIVE PULMONARY DISEASE W ( ACUTE) EXACERBATION Status: Acute (3) Atrial fibrillation with RVR Current Visit: No Code(s): I48.91 - UNSPECIFIED ATRIAL FIBRILLATION Status: Chronic (4) HTN (hypertension) Current Visit: No Code(s): I10 - ESSENTIAL (PRIMARY) HYPERTENSION Status: Chronic Qualifiers: Hypertension type: essential hypertension (5) Physical deconditioning Current Visit: No Code(s): R53.81 - OTHER MALAISE Status: Chronic (6) Sacral decubitus ulcer, stage IV Current Visit: No Code(s): L89.154 - PRESSURE ULCER OF SACRAL REGION, STAGE 4 Status: Chronic (7) Volume overload Current Visit: Yes Code(s): E87.70 - FLUID OVERLOAD, UNSPECIFIED Status: Acute - Time Time: 50% of the time was spent in coordination of care (as documented) at patient's floor/unit and/or counseling patient. Time with Patient: greater than 50 minutes - Plan Plan: Acute hypercapnic hypoxic respiratory failure - This is likely secondary to a COPD exacerbation and mild volume overload, expect to be able to extubate tomorrow. - Give IV lasix and monitor I/O - Scheduled duonebs and po prednisone - re evaluate in am COPD - as above Volume overload - as above - Cards has been consulted. Pt had normal EF in December of this year Infected sacral decubitus ulcer - continue home PO abx HTN - restart home meds Afib with RVR - currently rate controlled. Dispo: PT is currently stable and will likely be able to be weaned from vent tomorrow. Time in ICU is likely 24-48 hours <Jose Luis Gutierrez - Last Filed: 04/13/18 08:38> Pulmonology Consult: HPI - History of Present Illness HPI: ALISSONBOBBY Mathur is a 87 year-old F Pulmonology Consult: Meds - Medications Medications: Current Medications Acetaminophen (Tylenol Elixir) 650 mg PO Q6H PRN PRN Reason: Fever > 101 or Mild Pain Acetaminophen (Tylenol) [address] Q6H PRN PRN Reason: Fever > 101 or Mild Pain Albuterol/Ipratropium (Duoneb) 3 ml NEB [id number] [facility] Last Admin: 04/13/18 06:54 Dose: 3 ml Enoxaparin Sodium (Lovenox) 40 mg SC 0900 [facility] Famotidine (Pepcid) 20 mg SLOW IVP 2100 [facility] Last Admin: 04/12/18 20:23 Dose: 20 mg Furosemide (Lasix) 40 mg SLOW IVP DAILY [facility] Norepinephrine Bitartrate (Levophed) 250 mls @ 0 mls/hr IVPB PRN PRN; Protocol PRN Reason: To maintain MAP > 65 Potassium Chloride 40 meq/ (Sodium Chloride) 270 mls @ 135 mls/hr IVPB ASDIR PRN PRN Reason: FOR SERUM K+ 2.5 - 3.5 Potassium Chloride 40 meq/ (Device) 100 mls @ 50 mls/hr IVPB ASDIR PRN PRN Reason: FOR SERUM K+ 2.5 - 3.5 Magnesium Sulfate 1 gm/ Sodium (Chloride) 102 mls @ 102 mls/hr IV PRN PRN PRN Reason: MAG LEVEL 1.4 - 2.0 Magnesium Sulfate 2 gm/ Device 100 mls @ 100 mls/hr IVPB ASDIR PRN PRN Reason: MAGNESIUM < 1.4 Potassium Phosphate 9 mmol/ (Sodium Chloride) 103 mls @ 25.75 mls/hr IVPB ASDIR PRN PRN Reason: Phosphate 1.0-1.8 Potassium Phosphate 12 mmol/ (Sodium Chloride) 254 mls @ 63.5 mls/hr IV ASDIR PRN PRN Reason: Serum phosphate 0.5-0.9 Potassium Phosphate 15 mmol/ (Sodium Chloride) 255 mls @ 63.75 mls/hr IV ASDIR PRN PRN Reason: Serum Phos < 0.5 Fentanyl Citrate 2,000 mcg/ (Sodium Chloride) 100 mls @ 0 mls/hr IV INF [facility]; Protocol Stop: 05/12/18 11:53 Fentanyl Citrate (Fentanyl Bolus) 250 mls @ 0 mls/hr IVPB PRN PRN PRN Reason: Breakthrough pain/agitation Stop: 05/12/18 11:53 Aztreonam 1 gm/ Sodium (Chloride) 100 mls @ 100 mls/hr IVPB 0600,1800 [facility] Last Admin: 04/13/18 05:11 Dose: 100 mls Vancomycin HCl 1 gm/ Device 200 mls @ 166.67 mls/hr IVPB 1800 [facility] Last Admin: 04/12/18 18:08 Dose: 200 mls Insulin Human Regular (Humulin R) 0 units SC .MILD SLIDING SCALE PRN PRN Reason: Mild Correctional Scale Lorazepam (Ativan) 2 mg SLOW IVP Q1H PRN PRN Reason: Breakthrough agitation Stop: 05/12/18 11:53 Magnesium Oxide (Magnesium Oxide) 400 mg PO BIDPRN PRN PRN Reason: FOR SERUM MAG 1.4 - 2.0 Magnesium Oxide (Magnesium Oxide) 800 mg PO PRN PRN PRN Reason: FOR SERUM MAG < 1.4 Miscellaneous Medication (Pharmacy To Dose) 1 each IVPB PRN PRN PRN Reason: Pharmacy to dose Miscellaneous Medication (Phos-Nak) 1 pkt PO TIDPRN PRN PRN Reason: FOR PHOS LEVEL 1.0 - 1.8 Miscellaneous Medication (Phos-Nak) 2 pkt PO TIDPRN PRN PRN Reason: FOR PHOS LEVEL 0.5 - 1.0 Morphine Sulfate (Morphine Sulfate) 2 mg SLOW IVP Q1H PRN PRN Reason: BREAKTHROUGH PAIN/AGITATION Stop: 05/12/18 11:53 Ccu Electrolyte (Replacement Protocol) 0 each FS PRN PRN PRN Reason: FOR ELECTROLYTE REPLACEMENT Discontinue Previous Narcotic Pain Medications And Benzodiazepines 1 each FS .ONE [facility] Stop: 05/12/18 11:53 Ondansetron HCl (Zofran) 4 mg IVP Q6H PRN PRN Reason: Nausea/Vomiting Pantoprazole Sodium (Protonix) 40 mg PO DAILY [facility] Potassium Chloride (K-Dur) 40 meq PO ASDIR PRN PRN Reason: FOR SERUM K+ 2.5 - 3.5 Potassium Chloride (Klor-Con) 40 meq PER TUBE ASDIR PRN PRN Reason: FOR SERUM K+ 2.5-3.5 Prednisone (Prednisone) 40 mg PO QAM-WM [facility] Stop: 04/18/18 08:01 Propofol (Diprivan) 1,000 mg IV INF PRN; Protocol PRN Reason: TO ACHIEVE GOAL RASS Stop: 05/12/18 11:53 Last Admin: 04/12/18 14:48 Dose: 1,000 mg Propofol (Diprivan Bolus) 20 mg IV Q5MIN PRN PRN Reason: BREAKTHROUGH AGITATION Stop: 05/12/18 11:53 Pulmonology Consult: Results - Labs Result Diagrams: 04/13/18 05:02 04/13/18 05:01 - ABG Interpretation ABG Results: ABG pH 7.44 (7.35-7.45) 04/12/18 09:45 ABG pCO2 41.0 mmHg (35.0-45.0) 04/12/18 09:45 ABG O2 Sat Calc/Frank 99.4 % (94.0-98.0) H 04/12/18 09:45 ABG Base Excess 3.0 mEq/L (-2.0 to +3.0) 04/12/18 09:45 Pulmonology Consult: A/P - Time Time: 50% of the time was spent in coordination of care (as documented) at patient's floor/unit and/or counseling patient. Attending Addendum - Attending Addendum Date/Time: 04/13/18836 I personally evaluated the patient and discussed the management with Dr. Kinney. I agree with the History, Examination, Assessment and Plan documented above with any addition or exceptions noted below. Critical care time: 30 minutes.
--- NOTE | 2018-04-12 15:43 | CON ---
DATE OF CONSULTATION: 04/12/2018 REASON FOR CONSULTATION: Elevated BNP. 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 Simeon De La Cruz. HISTORY OF PRESENT ILLNESS: Mrs. Khan is a pleasant 87-year-old white female who comes to the [facility] for altered mentation. She was recently admitted for complicated urinary tract infection, given antibiotics. She was altered at first. She was much better on discharge, went back to the [facility]. She was found to be altered today, so she was brought back in. ABG showed severe hypercapnia. She was placed on the ventilator and eventually is much better now. During her initial evaluation, BNP was measured, which was high, so Cardiology is being consulted for this. On my evaluation, she is intubated, however, she is wide awake and following commands. PAST MEDICAL HISTORY: 1. Hypertension. 2. Hyperlipidemia. 3. Diverticulitis in the past. 4. Recurrent urinary tract infections. 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 6. Paroxysmal atrial fibrillation. 7. Chronic diastolic heart failure. PAST SURGICAL HISTORY: 1. Cholecystectomy. 2. Appendectomy. 3. . 4. Ablation as above. OUTPATIENT MEDICATIONS: Include: 1. Pantoprazole. 2. Vibramycin. 3. Cleocin. 4. Cefuroxime. 5. Propranolol 8 mg daily.. 6. Multivitamin daily. 7. Melatonin. 8. Megace. 9. Loperamide. 10. Lisinopril 5 mg daily. 11. Forlax. 12. Hyoscyamine. 13. [place] p.r.n. 14. Lasix 20 mg b.i.d. 15. Ferrous sulfate. 16. Vitamin D3. 17. Calcium. 18. Vitamin C. 19. Acetaminophen p.r.n. ALLERGIES: CODEINE, METRONIDAZOLE, MORPHINE, MACROBID, PENICILLIN, and SULFA DRUGS. SOCIAL HISTORY: Per chart review. Smoked half pack a day till year 1999. No alcohol or drug use. . FAMILY HISTORY: Noncontributory. REVIEW OF SYSTEMS: Unobtainable as the patient is intubated. PHYSICAL EXAMINATION: VITAL SIGNS: Temperature 97.5, pulse 98, respiratory rate 16, satting 100% on 21% FiO2, so this is r oom air, blood pressure 141/61. GENERAL: Awake and alert. She is intubated, but following commands appropriately. Following with h er eyes. HEENT: Normocephalic and atraumatic. NECK: Supple. LUNGS: Have mild crackles at bilateral bases. CARDIOVASCULAR: S1, S2, no S3, S4, no murmurs. ABDOMEN: Soft, positive bowel sounds. EXTREMITIES: No edema. SKIN: Warm and dry. LABORATORY DATA AND IMAGING DATA: Laboratory work was reviewed. CBC with a white count of 9.8, hemo globin 11.2, hematocrit 36 and platelet count of 506. ABG; her pH on admission this morning was 7.03 with CO2 of 146, much better now. Few minutes later at 9:45 at 7.44, CO2 of 41. Chemistry unremark able except for potassium 5.2. Troponin negative x1. BNP was 1500, albumin of 2.9. CT of the brain was unremarkable. Chest x-ray shows chronic lung changes suggestive of COPD. There is no cardiomegaly, no pneumonia or edema. ASSESSMENT AND PLAN: 1. Altered mental status. 2. Hypercapnic hypoxic respiratory insufficiency. 3. Altered mentation, likely secondary to hypercapnia. 4. Elevated BNP. This could be related to mild level of diastolic heart failure, much better after one dose of IV Lasix. 5. Recurrent UTIs. PLAN: Agree with Dr. Gutierrez's evaluation. She is already much better. One dose of IV Lasix; yadiel cejay would just give her 1 more tomorrow before extubation. Otherwise, she had a normal EF back in Ma y of this year. We will order one just to make sure there is nothing else going on in her heart with her valves. Otherwise, most likely this was all hypercapnic episodes that made her altered as well. Thank you for letting us to participate in the care of your patient Her primary stone spreader operator Dr. Navarro yoon will follow up in the morning.
[2018-04-12] MEDS ORDERED: predniSONE 20 MG TAB PO SCH (16:45)
--- NOTE | 2018-04-12 17:53 | HP ---
DATE OF ADMISSION: 04/12/2018 CHIEF COMPLAINT: Unresponsiveness. HISTORIAN: Obtained from the patient's son and electronic medical records. 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 Per the son, the patient was recently admitted to the hospital on Monday prior to the day of admissio n (04/12/2018) and the patient was actually admitted on the Monday for UTI and was treated. The eduardo ent was actually discharged the day prior to this admission and the patient was feeling well. [facility] the patient was able to communicate; however, in the halfway, the patient was found unres ponsive. The time that the patient was unresponsive for was not known. However, upon further invest igation and talking to the ED physician, the patient was never in cardiac arrest. The patient was ju st having some agonal breathing when she was found. The patient was then brought to the ED. In the ED, the patient's O2 saturations were in the 80s. The patient initially was able to respond to some verbal commands; however, the patient deteriorated and ABG that was done showed that the patient was in severe hypoxemia with oxygen tension of 46 and also the patient was found to be very hypercapnic w ith pCO2 of 140s. The patient was then intubated in the ED and the patient was admitted to the ICU. When the patient was seen, the patient was intubated and on sedation in the ICU. REVIEW OF SYSTEMS: Cannot be obtained. The patient is intubated and sedated. PAST MEDICAL HISTORY: 1. Hypertension. 2. Hyperlipidemia. 3. Diverticulitis in the past. 4. Recurrent UTIs. 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 6. Paroxysmal atrial fibrillation. 7. Chronic diastolic heart failure. 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 ALLERGIES: The patient is allergic to CODEINE, METRONIDAZOLE, MORPHINE, MACROBID, PENICILLIN and SUL FA DRUGS. FAMILY HISTORY: Noncontributory to this case. SOCIAL HISTORY: The patient smoked half a pack a day until 1999. The patient does not drink and zhao s not use any illicit drugs. MEDICATIONS: The patient is on, 1. Propranolol 80 mg daily. 2. Clindamycin 150 mg. 3. Pantoprazole 40 mg daily. 4. Multivitamins with minerals. 5. Melatonin 3 mg. 6. Megestrol 400 mg/10 mL. 7. Loperamide 2 mg Mondays, Wednesdays and Fridays. 8. Lisinopril 5 mg p.o. daily. 9. Lactobacillus p.o. b.i.d. 10. Hyoscyamine sulfate. 11. [place] 5/325 every 4 hours. 12. Furosemide 20 mg b.i.d. 13. Ferrous sulfate 325 mg b.i.d. 14. Vitamin D 50,000 p.o. b.i.d. 15. Calcium carbonate 600 mg daily. 16. Ascorbate calcium 500 p.o. b.i.d. 17. Acetaminophen 325 mg p.o. every 4 hours p.r.n. PHYSICAL EXAMINATION: VITAL SIGNS: Temperature 97.5, pulse 98, respiratory rate 16, satting 100% on 21% FIO2, blood pressu re 141/61. GENERAL: The patient is intubated. The patient withdraws to pain, able to follow some commands and track her eyes. HEENT: Normocephalic, atraumatic. Pupils are equally round and reactive to light. The patient is a ble to track with her eyes. The patient has NG tube through her mouth. NECK: Supple. LUNGS: Ventilated lung sounds can be appreciated at the anterior lung lynn. CARDIOVASCULAR: Positive S1, S2. No murmurs, no gallops, no rubs appreciated. ABDOMEN: Soft. Positive bowel sounds. No ecchymosis. No abdominal masses palpated. EXTREMITIES: No edema. SKIN: Warm and dry. Some ecchymosis noted at the lower extremities. Also, there are some ulceratio ns and sacral decubital pressure ulcers noted per chart. IMAGING: CT of the brain was unremarkable. Chest x-ray shows chronic lung changes. There is no car diomegaly, no pneumonia or edema noted. LABORATORY DATA: WBC 9.8, hemoglobin 11.2, hematocrit 36, platelets 506,000. ABG, pH 7.03, pCO2 of 146, oxygen tension in the 40s. Repeat ABG showed that pH was 7.44 after intubation, pCO2 of 41 and oxygen tension was 644 after intubation. Electrolytes, BNP above 1500s. Albumin 2.9. Troponins wer e negative. Potassium 5.2. ASSESSMENT AND PLAN: This is an 87-year-old female being admitted for, 1. Sepsis secondary to urinary tract infection. At this point, we will start the patient on broad s pectrum antibiotics. We will do vancomycin and for broad coverage and we will taper the eduardoen t down after we get blood cultures, urine cultures. We know that the patient also has some sacral de cubitus and soft tissue infection in the past, so we hope that vancomycin can cover these infections if an ulceration is also a source of infection. At this point, we noted that the patient has positiv e UTI and that might be the main culprit to the patient's alteration of awareness. We will continue the patient on current management. The patient is currently in the ICU and Pulmonology is on the ryan e. We will follow up with their recommendations. 2. Hypercapnic hypoxemic respiratory failure, most likely secondary to sepsis. The patient is curre ntly on ventilator. Pulmonology is on consult. We will follow up with their recommendations. 3. Encephalopathy, most likely due to urinary tract infection. Currently, the patient is being paola annie with broad-spectrum antibiotics. We will follow up on cultures and sensitivities and we will tap er antibiotics based on culture sensitivities. 4. Chronic diastolic heart failure. The patient's BNP is 1500. We have consulted Cardiology. We w ill follow up with Cardiology's recommendations. 5. History of hypertension. We will continue the patient on current management at this time. We wi ll monitor the patient's blood pressure. 6. Hyperlipidemia. We will hold off all oral medications at this time. We will restart the patient medication at the appropriate time. 7. Disposition. Currently, the patient is admitted to the ICU. The patient's prognosis is guarded at this time. We will consult palliative care and basically have palliative team speak to the liberty jacobs's family regarding goals of care and we will, at this point, continue our current management and mo nitor the patient. This case has been dictated by Dr. Keith Gamez on patient Bill Casillas.
[2018-04-12] MEDS: Aztreonam 1 GM in Sodium Chloride 0.9% 100 ML IVPB SCH (17:57)
[2018-04-12] MEDS ORDERED: Vancomycin HCl 1 GM in Premix Bag 1 BAG IVPB SCH (18:00)
[2018-04-12] MEDS ORDERED: Famotidine/PF 20 mg/2ml Vial SLOW IVP SCH ×2 (21:00)
[2018-04-12] MEDS ORDERED: Cefuroxime Axetil 250 MG TAB PER TUBE SCH (21:00)
[2018-04-13] MEDS: Aztreonam 1 GM in Sodium Chloride 0.9% 100 ML IVPB SCH (05:11)
[2018-04-13 05:40] LABS: Band 21 % (5-11); Hemoglobin 9.9 g/dL (12.0-16.0); Lymphocytes 2 % (21-51); MDiff Complete? YES; Macrocytosis SLIGHT = 6-15 cells (100X) (0-5/hpf); Mean Corpuscular HGB CONC 32.3 g/dL (32.0-36.0); Mean Corpuscular Hemoglobin 33.1 pg (27.0-31.0); Mean Platelet Volume 6.7 fL (7.4-10.4); Metamyelocyte 1 % (0-0); Monocytes 2 % (0-10); Neutrophil 74 % (42-75); PLT Morphology Comment Appears Increased; Platelet Count 421 thou/uL (130-400); RBC Distribution Width 12.9 % (11.5-14.5); White Blood Cell (WBC) Count 13.2 thou/uL (4.8-10.8)
[2018-04-13 05:50] LABS: ALT (SGPT) 7 U/L (8-55); AST (SGOT) 14 U/L (5-34); Albumin 2.6 g/dL (3.4-4.8); Alkaline Phosphatase 40 U/L (40-150); Anion Gap 15 mmol/L (10-20); BUN (Urea Nitrogen) 28 mg/dL (9.8-20.1); Bilirubin, Total 0.2 mg/dL (0.2-1.2); Calc. Creatinine Clearance 32 mL/min (70-130); Calcium 8.9 mg/dL (7.8-10.44); Carbon Dioxide 26 mmol/L (23-31); Chloride 104 mmol/L (98-107); Estimated GFR-MDRD 38; Globulin 2.7 g/dL (2.4-3.5); Glucose 103 mg/dL (83-110); Potassium 4.3 mmol/L (3.5-5.1); Protein, Total 5.3 g/dL (6.0-8.3); Sodium 141 mmol/L (136-145)
[2018-04-13] MEDS ORDERED: Enoxaparin Sodium 40 MG/0.4 ML SYRINGE SC SCH (09:00)
[2018-04-13] MEDS: Furosemide 40 MG/4 ML VIAL SLOW IVP SCH (09:51)
[2018-04-13] MEDS: predniSONE 20 MG TAB PO SCH (09:51)
[2018-04-13] MEDS: Propofol 1,000 MG/100 ML VIAL IV PRN (09:51)
--- NOTE | 2018-04-13 11:31 | PRG ---
DATE OF SERVICE: 04/13/2018 SERVICE: Pulmonary Medicine. INTERVAL HISTORY: The patient is requiring just a little bit of sedation. On that, she is perfectly cool, calm and collected. She is breathing comfortably. She has no complaints of shortness of breath or chest discomfort. She is breathing much improved today. Otherwise, there has been no interval change to her condition. PHYSICAL EXAMINATION: VITAL SIGNS: Afebrile, pulse 106, blood pressure 175/80, respirations 21, saturation 97% on 21% FiO2 and a PEEP of 5. GENERAL: Patient is intubated and sedated. She is responding appropriately and following commands. She is moving all 4 extremities. HEENT: Normocephalic, atraumatic. Sclerae are white, conjunctivae pink. Oral mucosa is moist without lesions. LUNGS: Decent air entry. There is a prolonged expiratory phase. She is moving much better air today and is starting to have some wheezing. I can appreciate dependent crackles. HEART: Normal rate, regular. ABDOMEN: Soft, nontender, nondistended. Bowel sounds are positive. MUSCULOSKELETAL: No cyanosis or clubbing. There is 1+ pitting in the bilateral lower extremities. NEUROLOGIC: Grossly nonfocal. LABORATORY DATA: WBC 13.2, hemoglobin 9.9, platelets 421,000. Band count is 21 % on top of the neutrophil count is 74; pH 7.44, pCO2 41, pO2 644, 100% FiO2 at that time. Creatinine 1.34 and gently up trending, BUN 28, bicarbonate 26 and stable, sodium 141. Basic metabolic profile is otherwise unremarkable. Blood sugars ranged from 88-163. Urinalysis is unremarkable. Urine culture and blood cultures are negative x2 to date. ASSESSMENT: 1. Acute hypoxic and hypercapnic respiratory failure. 2. Metabolic encephalopathy. 3. Chronic obstructive pulmonary disease with acute exacerbation. 4. Acute on chronic diastolic heart failure. 5. Atrial fibrillation with rapid ventricular response, resolved. 6. Deconditioning, severe. 7. Sacral decubitus ulcer, stage 4, present on admission. DISCUSSION AND PLAN: We will continue to diurese the patient slowly through time. I will discontinue her broad spectrum antibiotics. She can resume the antibiotics she was previously taking. I do not believe that a new source of infection is what caused her to develop such severe respiratory failure. I think it is really a volume mediated occurrence. Her expiratory airflow limitation is much improved today compared to yesterday. We will put her over to pressure support ventilation drop her rate. I will turn more work of breathing over to her as the day goes on. If she meets criteria, a CPAP trial will be considered. Pulmonary or Critical Care will continue to follow along while the patient remains in this location. Critical care time: 30 minutes. TIFFANIE
[2018-04-13] MEDS: Clindamycin 150 MG CAP PO SCH ×3 (15:28→23:31)
--- NOTE | 2018-04-13 15:57 | PDOC.PN ---
- Subjective Encounter Start Date: 04/13/18 Encounter Start Time: 15:55 patient seen and examine. Intubated. Follows commands. Able to comprehend. Was Alert and Awake - Objective MAR Reviewed: Yes Vital Signs & Weight: Vital Signs (12 hours) Temp Pulse Resp BP Pulse Ox 04/13/18 14:28 85 032/75 04/13/18 14:22 112 H 17 98 04/13/18 14:00 17 04/13/18 12:00 99.0 F 18 04/13/18 11:24 96 04/13/18 10:00 22 H 04/13/18 08:00 99.0 F 101 H 20 95 04/13/18 06:57 74 130/52 L 04/13/18 06:54 74 17 100 04/13/18 06:00 17 04/13/18 04:00 17 Weight Admit Weight 149 lb Weight 149 lb 7.574 oz Most Recent Monitor Data Heart Rate from ECG 90 NIBP 126/52 NIBP BP-Mean 96 Respiration from ECG 18 SpO2 99 I&O: 04/12/18 04/13/18 04/14/18 06:59 06:59 06:59 Intake Total 316 100 Output Total 1260 680 Balance -944 -580 Result Diagrams: 04/13/18 05:02 04/13/18 05:01 Additional Labs: Accuchecks 04/13/18 04/13/18 04/12/18 10:34 04:12 22:22 POC Glucose 88 96 163 H 04/12/18 16:39 POC Glucose 67 L Phys Exam - Physical Examination HEENT: PERRLA intubated intubated. vent sounds appreciated on anterior lung lynn Cardiovascular: RRR withdraws to pain, follow commands, tracks with eyes Deviation from normal: numerous ulcers Dx/Plan (1) Acute respiratory failure with hypoxia and hypercapnia Code(s): J96.01 - ACUTE RESPIRATORY FAILURE WITH HYPOXIA; J96.02 - ACUTE RESPIRATORY FAILURE WITH HYPERCAPNIA Status: Acute Comment: Intubaded on vent. Being managed by Pulm. Per Pulm patient probably had volume overload. Infection as the cause of her resp failure less likely. Will continue on home meds. will follow with pulm's recs. (2) COPD exacerbation Code(s): J44.1 - CHRONIC OBSTRUCTIVE PULMONARY DISEASE W (ACUTE) EXACERBATION Status: Acute Comment: currently intubated. Pulm on consult. will follow with their recs. (3) NAVARRO (acute kidney injury) Code(s): N17.9 - ACUTE KIDNEY FAILURE, UNSPECIFIED Status: Acute Comment: developed NAVARRO most likely due to nephrotoxic meds. Meds have been renally dosed by ICU team. Vanco/azactam d/c'd. will continue to monitor (4) Acute encephalopathy Code(s): G93.40 - ENCEPHALOPATHY, UNSPECIFIED Status: Acute Comment: on rocephin, unclear source, S aureus from chronically open stage !V sacral pressure ulcer (5) UTI (urinary tract infection) Status: Acute Qualifiers: Urinary tract infection type: acute cystitis Hematuria presence: with hematuria Qualified Code(s): N30.01 - Acute cystitis with hematuria Comment: On aral antibiotics. currently afebrile. White count trending down. (6) HTN (hypertension) Code(s): I10 - ESSENTIAL (PRIMARY) HYPERTENSION Status: Chronic Qualifiers: Hypertension type: essential hypertension Comment: Fair control. Will resume home regimen. (7) Physical deconditioning Code(s): R53.81 - OTHER MALAISE Status: Chronic (8) Sacral decubitus ulcer, stage IV Code(s): L89.154 - PRESSURE ULCER OF SACRAL REGION, STAGE 4 Status: Chronic - Plan * . see above Review of Systems - Medications/Allergies Allergies/Adverse Reactions: Allergies Allergy/AdvReac Type Severity Reaction Status Date / Time codeine Allergy Verified 05/30/17 17:52 metronidazole [From Flagyl] Allergy Verified 05/30/17 17:52 morphine Allergy Verified 05/30/17 17:53 nitrofurantoin Allergy Verified 05/30/17 17:53 [From Macrobid] penicillin Allergy Verified 05/30/17 17:53 Sulfa (Sulfonamide AdvReac Intermediate Verified 05/30/17 17:55 Antibiotics) Medications: Current Medications Acetaminophen (Tylenol Elixir) 650 mg PO Q6H PRN PRN Reason: Fever > 101 or Mild Pain Acetaminophen (Tylenol) 650 mg NV Q6H PRN PRN Reason: Fever > 101 or Mild Pain Albuterol/Ipratropium (Duoneb) 3 ml NEB [id number] SCOTT Last Admin: 04/13/18 14:22 Dose: 3 ml Cefuroxime Axetil (Ceftin) 250 mg PO Q12HR ON LICENSE OF [facility] Clindamycin HCl (Cleocin) 300 mg PO Q8H ON LICENSE OF [facility] Last Admin: 04/13/18 15:28 Dose: 300 mg Enoxaparin Sodium (Lovenox) 30 mg SC 0900 ON LICENSE OF [facility] Furosemide (Lasix) 40 mg SLOW IVP DAILY ON LICENSE OF [facility] Last Admin: 04/13/18 09:51 Dose: 40 mg Potassium Chloride 40 meq/ (Sodium Chloride) 270 mls @ 135 mls/hr IVPB ASDIR PRN PRN Reason: FOR SERUM K+ 2.5 - 3.5 Potassium Chloride 40 meq/ (Device) 100 mls @ 50 mls/hr IVPB ASDIR PRN PRN Reason: FOR SERUM K+ 2.5 - 3.5 Magnesium Sulfate 1 gm/ Sodium (Chloride) 102 mls @ 102 mls/hr IV PRN PRN PRN Reason: MAG LEVEL 1.4 - 2.0 Magnesium Sulfate 2 gm/ Device 100 mls @ 100 mls/hr IVPB ASDIR PRN PRN Reason: MAGNESIUM < 1.4 Potassium Phosphate 9 mmol/ (Sodium Chloride) 103 mls @ 25.75 mls/hr IVPB ASDIR PRN PRN Reason: Phosphate 1.0-1.8 Potassium Phosphate 12 mmol/ (Sodium Chloride) 254 mls @ 63.5 mls/hr IV ASDIR PRN PRN Reason: Serum phosphate 0.5-0.9 Potassium Phosphate 15 mmol/ (Sodium Chloride) 255 mls @ 63.75 mls/hr IV ASDIR PRN PRN Reason: Serum Phos < 0.5 Fentanyl Citrate 2,000 mcg/ (Sodium Chloride) 100 mls @ 0 mls/hr IV INF SCOTT; Protocol Stop: 05/12/18 11:53 Fentanyl Citrate (Fentanyl Bolus) 250 mls @ 0 mls/hr IVPB PRN PRN PRN Reason: Breakthrough pain/agitation Stop: 05/12/18 11:53 Insulin Human Regular (Humulin R) 0 units SC .MILD SLIDING SCALE PRN PRN Reason: Mild Correctional Scale Magnesium Oxide (Magnesium Oxide) 400 mg PO BIDPRN PRN PRN Reason: FOR SERUM MAG 1.4 - 2.0 Magnesium Oxide (Magnesium Oxide) 800 mg PO PRN PRN PRN Reason: FOR SERUM MAG < 1.4 Miscellaneous Medication (Phos-Nak) 1 pkt PO TIDPRN PRN PRN Reason: FOR PHOS LEVEL 1.0 - 1.8 Miscellaneous Medication (Phos-Nak) 2 pkt PO TIDPRN PRN PRN Reason: FOR PHOS LEVEL 0.5 - 1.0 Ccu Electrolyte (Replacement Protocol) 0 each FS PRN PRN PRN Reason: FOR ELECTROLYTE REPLACEMENT Discontinue Previous Narcotic Pain Medications And Benzodiazepines 1 each FS .ONE ON LICENSE OF [facility] Stop: 05/12/18 11:53 Ondansetron HCl (Zofran) 4 mg IVP Q6H PRN PRN Reason: Nausea/Vomiting Pantoprazole Sodium (Protonix) 40 mg PO DAILY ON LICENSE OF [facility] Last Admin: 04/13/18 09:54 Dose: Not Given Potassium Chloride (K-Dur) 40 meq PO ASDIR PRN PRN Reason: FOR SERUM K+ 2.5 - 3.5 Potassium Chloride (Klor-Con) 40 meq PER TUBE ASDIR PRN PRN Reason: FOR SERUM K+ 2.5-3.5 Prednisone (Prednisone) 40 mg PO [facility] Stop: 04/18/18 08:01 Last Admin: 04/13/18 09:51 Dose: 40 mg Propofol (Diprivan) 1,000 mg IV INF PRN; Protocol PRN Reason: TO ACHIEVE GOAL RASS Stop: 05/12/18 11:53 Last Admin: 04/13/18 09:51 Dose: 1,000 mg Propofol (Diprivan Bolus) 20 mg IV Q5MIN PRN PRN Reason: BREAKTHROUGH AGITATION Stop: 05/12/18 11:53
[2018-04-13] MEDS ORDERED: Cefuroxime Axetil 250 MG TAB PO SCH (21:00)
[2018-04-13] MEDS: CEFUROXIME AXETIL 125 MG/5 ML PO SCH (23:31)
[2018-04-13] MEDS: Metoprolol Tartrate 5 MG/5 ML VIAL IVP PRN (23:32)
[2018-04-14] MEDS: Propofol 1,000 MG/100 ML VIAL IV PRN (01:52)
[2018-04-14 05:40] LABS: ALT (SGPT) 8 U/L (8-55); AST (SGOT) 15 U/L (5-34); Albumin 2.5 g/dL (3.4-4.8); Alkaline Phosphatase 36 U/L (40-150); Anion Gap 9 mmol/L (10-20); BUN (Urea Nitrogen) 29 mg/dL (9.8-20.1); Bilirubin, Total 0.2 mg/dL (0.2-1.2); Calc. Creatinine Clearance 31 mL/min (70-130); Calcium 8.5 mg/dL (7.8-10.44); Carbon Dioxide 31 mmol/L (23-31); Chloride 103 mmol/L (98-107); Estimated GFR-MDRD 36; Globulin 2.6 g/dL (2.4-3.5); Glucose 105 mg/dL (83-110); Potassium 3.4 mmol/L (3.5-5.1); Protein, Total 5.1 g/dL (6.0-8.3); Sodium 140 mmol/L (136-145)
[2018-04-14 05:52] LABS: Band 2 % (5-11); Hemoglobin 8.6 g/dL (12.0-16.0); Hypochromia SLIGHT = 6-15 cells (100X) (0-5/hpf); Lymphocytes 10 % (21-51); MDiff Complete? YES; Mean Corpuscular HGB CONC 33.8 g/dL (32.0-36.0); Mean Corpuscular Hemoglobin 33.7 pg (27.0-31.0); Mean Corpuscular Volume 99.7 fL (78.0-98.0); Mean Platelet Volume 6.4 fL (7.4-10.4); Monocytes 4 % (0-10); Neutrophil 84 % (42-75); Nucleated RBC 1 % (0); PLT Morphology Comment Appears Adequate; Platelet Count 424 thou/uL (130-400); RBC Distribution Width 13.2 % (11.5-14.5); Red Blood Cell (RBC) Count 2.55 mill/uL (4.20-5.40); White Blood Cell (WBC) Count 11.1 thou/uL (4.8-10.8)
[2018-04-14] MEDS: Clindamycin 150 MG CAP PO SCH ×3 (06:55→23:44)
[2018-04-14] MEDS: Metoprolol Tartrate 5 MG/5 ML VIAL IVP PRN (06:55)
[2018-04-14] MEDS: predniSONE 20 MG TAB PO SCH ×2 (08:00→17:16)
[2018-04-14] MEDS: Furosemide 40 MG/4 ML VIAL SLOW IVP SCH (09:00)
[2018-04-14] MEDS: Enoxaparin Sodium 30 MG/0.3 ML SYRINGE SC SCH ×2 (09:00→12:52)
[2018-04-14] MEDS: CEFUROXIME AXETIL 125 MG/5 ML PO SCH ×2 (09:00→21:28)
[2018-04-14] MEDS ORDERED: DC Sedation Protocol FS ONE (09:39)
--- NOTE | 2018-04-14 13:58 | PDOC.PN ---
- Subjective Encounter Start Date: 04/14/18 Encounter Start Time: 13:56 Patient seen and examined. states that she is hungry. on tele she is tachycardic in the 130's. - Objective MAR Reviewed: Yes Vital Signs & Weight: Vital Signs (12 hours) Temp Pulse Resp BP Pulse Ox 04/14/18 13:45 98 22 H 94 L 04/14/18 09:29 141 H 23 H 97 04/14/18 06:20 118 H 161/119 H 04/14/18 06:19 111 H 19 95 04/14/18 06:00 18 04/14/18 04:00 98.6 F 12 04/14/18 02:25 125 H 04/14/18 02:00 15 Weight Admit Weight 149 lb Weight 149 lb 7.574 oz Most Recent Monitor Data Heart Rate from ECG 129 NIBP 161/86 NIBP BP-Mean 113 Respiration from ECG 22 SpO2 90 I&O: 04/13/18 04/14/18 04/15/18 06:59 06:59 06:59 Intake Total 316 339.1 Output Total 1260 1145 Balance -944 -805.9 Result Diagrams: 04/14/18 05:12 04/14/18 05:12 Additional Labs: Accuchecks 04/14/18 04/14/18 04/13/18 13:41 05:01 23:51 POC Glucose 85 98 112 H 04/13/18 16:03 POC Glucose 109 Phys Exam - Physical Examination Constitutional: NAD HEENT: PERRLA, moist MMs Neck: no JVD, supple Respiratory: no wheezing, no rales Cardiovascular: no significant murmur Tachycardic Gastrointestinal: soft, non-tender, no distention Musculoskeletal: no edema weak lower extremities. Neurological: non-focal, normal sensation Psychiatric: normal affect Deviation from normal: ulcerations. Dx/Plan (1) Acute respiratory failure with hypoxia and hypercapnia Code(s): J96.01 - ACUTE RESPIRATORY FAILURE WITH HYPOXIA; J96.02 - ACUTE RESPIRATORY FAILURE WITH HYPERCAPNIA Status: Resolved Comment: s/p Intubaded. Extubated now. conversing without difficulties. Follow pulm's rec. (2) COPD exacerbation Code(s): J44.1 - CHRONIC OBSTRUCTIVE PULMONARY DISEASE W (ACUTE) EXACERBATION Status: Acute Comment: extubated. agree with pulm's management. (3) NAVARRO (acute kidney injury) Code(s): N17.9 - ACUTE KIDNEY FAILURE, UNSPECIFIED Status: Acute Comment: developed NAVARRO most likely due to nephrotoxic meds. Meds have been renally dosed by ICU team. Vanco/azactam d/c'd. will continue to monitor (4) Acute encephalopathy Code(s): G93.40 - ENCEPHALOPATHY, UNSPECIFIED Status: Acute Comment: Now improved. (5) UTI (urinary tract infection) Status: Resolved Qualifiers: Urinary tract infection type: acute cystitis Hematuria presence: with hematuria Qualified Code(s): N30.01 - Acute cystitis with hematuria Comment: cont. current management. No culture growth. (6) HTN (hypertension) Code(s): I10 - ESSENTIAL (PRIMARY) HYPERTENSION Status: Chronic Qualifiers: Hypertension type: essential hypertension Qualified Code(s): I10 - Essential (primary) hypertension Comment: hypertensive this morning. will control and monitor (7) Physical deconditioning Code(s): R53.81 - OTHER MALAISE Status: Chronic (8) Sacral decubitus ulcer, stage IV Code(s): L89.154 - PRESSURE ULCER OF SACRAL REGION, STAGE 4 Status: Chronic - Plan * . Review of Systems - Review of Systems Constitutional: negative: fever, chills, sweats, weakness, malaise, other Eyes: negative: Pain, Vision Change, Conjunctivae Inflammation, Eyelid Inflammation, Redness, Other ENT: negative: Ear Pain, Ear Discharge, Nose Pain, Nose Discharge, Nose Congestion, Mouth Pain, Mouth Swelling, Throat Pain, Throat Swelling, Other Respiratory: negative: Cough, Dry, Shortness of Breath, Hemoptysis, SOB with Excertion, Pleuritic Pain, Sputum, Wheezing Cardiovascular: negative: chest pain, palpitations, orthopnea, paroxysmal nocturnal dyspnea, edema, light headedness, other Gastrointestinal: negative: Nausea, Vomiting, Abdominal Pain, Diarrhea, Constipation, Melena, Hematochezia, Other Genitourinary: negative: Dysuria, Frequency, Incontinence, Hematuria, Retention , Other Musculoskeletal: negative: Neck Pain, Shoulder Pain, Arm Pain, Back Pain, Hand Pain, Leg Pain, Foot Pain, Other Skin: negative: Rash, Lesions, Romeo, Bruising, Other Neurological: negative: Weakness, Numbness, Incoordination, Change in Speech, Confusion, Seizures, Other - Medications/Allergies Allergies/Adverse Reactions: Allergies Allergy/AdvReac Type Severity Reaction Status Date / Time codeine Allergy Verified 05/30/17 17:52 metronidazole [From Flagyl] Allergy Verified 05/30/17 17:52 morphine Allergy Verified 05/30/17 17:53 nitrofurantoin Allergy Verified 05/30/17 17:53 [From Macrobid] penicillin Allergy Verified 05/30/17 17:53 Sulfa (Sulfonamide AdvReac Intermediate Verified 05/30/17 17:55 Antibiotics) Medications: Current Medications Acetaminophen (Tylenol Elixir) 650 mg PO Q6H PRN PRN Reason: Fever > 101 or Mild Pain Acetaminophen (Tylenol) 650 mg [place] Q6H PRN PRN Reason: Fever > 101 or Mild Pain Albuterol/Ipratropium (Duoneb) 3 ml NEB [id number] [facility] Last Admin: 04/14/18 13:45 Dose: 3 ml Cefuroxime Axetil (Ceftin) 250 mg PO Q12HR [facility] Last Admin: 04/14/18 09:00 Dose: Not Given Clindamycin HCl (Cleocin) 300 mg PO 0700,1500,2300 [facility] Last Admin: 04/14/18 06:55 Dose: 300 mg Enoxaparin Sodium (Lovenox) 30 mg SC 0900 [facility] Last Admin: 04/14/18 12:52 Dose: 30 mg Potassium Chloride 40 meq/ (Sodium Chloride) 270 mls @ 135 mls/hr IVPB ASDIR PRN PRN Reason: FOR SERUM K+ 2.5 - 3.5 Last Admin: 04/14/18 12:52 Dose: 270 mls Potassium Chloride 40 meq/ (Device) 100 mls @ 50 mls/hr IVPB ASDIR PRN PRN Reason: FOR SERUM K+ 2.5 - 3.5 Magnesium Sulfate 1 gm/ Sodium (Chloride) 102 mls @ 102 mls/hr IV PRN PRN PRN Reason: MAG LEVEL 1.4 - 2.0 Magnesium Sulfate 2 gm/ Device 100 mls @ 100 mls/hr IVPB ASDIR PRN PRN Reason: MAGNESIUM < 1.4 Potassium Phosphate 9 mmol/ (Sodium Chloride) 103 mls @ 25.75 mls/hr IVPB ASDIR PRN PRN Reason: Phosphate 1.0-1.8 Potassium Phosphate 12 mmol/ (Sodium Chloride) 254 mls @ 63.5 mls/hr IV ASDIR PRN PRN Reason: Serum phosphate 0.5-0.9 Potassium Phosphate 15 mmol/ (Sodium Chloride) 255 mls @ 63.75 mls/hr IV ASDIR PRN PRN Reason: Serum Phos < 0.5 Insulin Human Regular (Humulin R) 0 units SC .MILD SLIDING SCALE PRN PRN Reason: Mild Correctional Scale Magnesium Oxide (Magnesium Oxide) 400 mg PO BIDPRN PRN PRN Reason: FOR SERUM MAG 1.4 - 2.0 Magnesium Oxide (Magnesium Oxide) 800 mg PO PRN PRN PRN Reason: FOR SERUM MAG < 1.4 Metoprolol Tartrate (Lopressor) 5 mg IVP Q6H PRN PRN Reason: SBP GREATER THAN 160 Last Admin: 04/14/18 06:55 Dose: 5 mg Miscellaneous Medication (Phos-Nak) 1 pkt PO TIDPRN PRN PRN Reason: FOR PHOS LEVEL 1.0 - 1.8 Miscellaneous Medication (Phos-Nak) 2 pkt PO TIDPRN PRN PRN Reason: FOR PHOS LEVEL 0.5 - 1.0 Ccu Electrolyte (Replacement Protocol) 0 each FS PRN PRN PRN Reason: FOR ELECTROLYTE REPLACEMENT Ondansetron HCl (Zofran) 4 mg IVP Q6H PRN PRN Reason: Nausea/Vomiting Pantoprazole Sodium (Protonix) 40 mg PO DAILY [facility] Last Admin: 04/14/18 09:00 Dose: Not Given Potassium Chloride (K-Dur) 40 meq PO ASDIR PRN PRN Reason: FOR SERUM K+ 2.5 - 3.5 Potassium Chloride (Klor-Con) 40 meq PER TUBE ASDIR PRN PRN Reason: FOR SERUM K+ 2.5-3.5 Prednisone (Prednisone) 40 mg PO QA-[facility] Stop: 04/18/18 08:01 Last Admin: 04/14/18 08:00 Dose: Not Given
--- NOTE | 2018-04-14 14:10 | PRG ---
DATE OF SERVICE: 04/14/2018 SUBJECTIVE: An 87-year-old female, intubated on the vent. This morning her sedation was turned off. OBJECTIVE: GENERAL: She is awake, responsive. VITAL SIGNS: Pulse 138, blood pressure 178/83, sats are 100%, respiratory rate 17. GENERAL: She nods appropriately. CHEST: Decreased breath sounds, no wheezing. CARDIAC: Normal S1, S2, no gallops. ABDOMEN: Soft. No masses. LABORATORY: White count 11,000, H&H 8 and 26, platelet count is normal. Electrolytes are normal. C reatinine 1.40. Last chest x-ray was unremarkable. CT head was negative. IMPRESSION: 1. Supraventricular tachycardia. 2. bronchitis. 3. Renal failure, aggravated by diuretics. PLAN: I am discontinuing his Lasix. Hold sedation. Continue antibiotics, nebulizer treatments, sup portive care. We will try and wean. She remains stable. [id number] critical care time.
--- NOTE | 2018-04-14 16:57 | EKG ---
Test Reason : Blood Pressure : / mmHG Vent. Rate : 083 BPM Atrial Rate : 083 BPM P-R Int : 148 ms QRS Dur : 142 ms QT Int : 372 ms P-R-T Axes : 075 084 054 degrees QTc Int : 437 ms Normal sinus rhythm Possible Left atrial enlargement Right bundle branch block Abnormal ECG Confirmed by OZ CHAIREZ DO ([id number]), book or script editor DIMITRY ROSARIO ([id number] on 04/14/2018 4:56:28 PM Referred By: Confirmed By:OZ CHAIREZ DO
[2018-04-14] MEDS: Propranolol HCl 20 MG TAB PO SCH ×2 (17:22→21:29)
[2018-04-15 04:57] LABS: ALT (SGPT) 10 U/L (8-55); AST (SGOT) 17 U/L (5-34); Albumin 2.7 g/dL (3.4-4.8); Alkaline Phosphatase 38 U/L (40-150); Anion Gap 12 mmol/L (10-20); BUN (Urea Nitrogen) 27 mg/dL (9.8-20.1); Bilirubin, Total 0.2 mg/dL (0.2-1.2); Calc. Creatinine Clearance 27 mL/min (70-130); Calcium 8.5 mg/dL (7.8-10.44); Carbon Dioxide 29 mmol/L (23-31); Chloride 103 mmol/L (98-107); Estimated GFR-MDRD 44; Globulin 2.7 g/dL (2.4-3.5); Glucose 125 mg/dL (83-110); Potassium 4.5 mmol/L (3.5-5.1); Protein, Total 5.4 g/dL (6.0-8.3); Sodium 139 mmol/L (136-145)
[2018-04-15 05:04] LABS: Band 2 % (5-11); Hemoglobin 8.9 g/dL (12.0-16.0); Lymphocytes 6 % (21-51); MDiff Complete? YES; Mean Corpuscular HGB CONC 33.3 g/dL (32.0-36.0); Mean Corpuscular Hemoglobin 33.7 pg (27.0-31.0); Mean Platelet Volume 6.4 fL (7.4-10.4); Monocytes 6 % (0-10); Neutrophil 86 % (42-75); PLT Morphology Comment Appears Increased; Platelet Count 472 thou/uL (130-400); RBC Distribution Width 13.3 % (11.5-14.5); Red Blood Cell (RBC) Count 2.64 mill/uL (4.20-5.40); White Blood Cell (WBC) Count 8.1 thou/uL (4.8-10.8)
[2018-04-15] MEDS: predniSONE 20 MG TAB PO SCH (09:12)
[2018-04-15] MEDS: CEFUROXIME AXETIL 125 MG/5 ML PO SCH (09:12)
[2018-04-15] MEDS: Propranolol HCl 20 MG TAB PO SCH ×3 (09:13→20:09)
[2018-04-15] MEDS: Enoxaparin Sodium 30 MG/0.3 ML SYRINGE SC SCH (09:13)
[2018-04-15] MEDS: Clindamycin 150 MG CAP PO SCH ×3 (09:13→22:36)
--- NOTE | 2018-04-15 09:56 | PRG ---
DATE OF SERVICE: 04/15/2018 SUBJECTIVE: She was extubated yesterday, in no distress. OBJECTIVE: VITAL SIGNS: Sats are 94 on 1 liter, pulse 82, respiration 20, blood pressure 176/78. NEUROLOGIC: She is less encephalopathic. CHEST: Reveals decreased breath sounds, no wheezing. CARDIAC: Normal S1, S2, no gallops. ABDOMEN: Soft, no masses. LABORATORY DATA: White count 8000, H&H is 8 and 26, platelet count is normal. Renal function is bet ter. IMPRESSION: 1. Status post respiratory failure, status post extubation, improved. 2. Renal failure, improved. 3. Metabolic encephalopathy. 4. Supraventricular tachycardia. PLAN: Continue antibiotics, neb treatments, steroids. We will follow.
[2018-04-15] MEDS: Cefuroxime Axetil 250 MG TAB PO SCH (20:28)
--- NOTE | 2018-04-15 23:08 | PDOC.PN ---
- Subjective Encounter Start Date: 04/15/18 Encounter Start Time: 10:15 Patient seen and examined for Resp failure. No new complaints. No overnight events - Objective MAR Reviewed: Yes Vital Signs & Weight: Vital Signs (12 hours) Temp Pulse Resp Pulse Ox 04/15/18 20:00 97.7 F 04/15/18 19:34 97.7 F 76 17 97 04/15/18 18:41 85 21 H 96 04/15/18 15:00 98.4 F 04/15/18 13:48 70 21 H 96 Weight Admit Weight 149 lb Weight 111 lb 5.335 oz Most Recent Monitor Data Heart Rate from ECG 64 NIBP 150/67 NIBP BP-Mean 123 Respiration from ECG 16 SpO2 97 I&O: 04/14/18 04/15/18 04/16/18 06:59 06:59 06:59 Intake Total 339.1 1301.6 1020 Output Total 1145 762 325 Balance -805.9 539.6 695 Result Diagrams: 04/16/18 03:26 04/16/18 03:26 Additional Labs: Accuchecks 04/15/18 04/15/18 04/15/18 20:07 16:43 11:39 POC Glucose 129 H 145 H 104 04/15/18 04:28 POC Glucose 119 H EKG Reviewed by me: Yes (Tele SR) Phys Exam - Physical Examination Constitutional: NAD Respiratory: no wheezing Scat rhonchi with few rales at bases Cardiovascular: RRR, no rub Gastrointestinal: soft, non-tender, positive bowel sounds Musculoskeletal: no edema Neurological: moves all 4 limbs Dx/Plan - Plan DVT proph w/SCDs IMPRESSION: 1. Acute hypoxic/hypercapnic resp failure - s/p Mech Vent with Sepsis with acute organ dysfunction 2. Acute on chronic diastolic HF exacerbation - stage C 3. COPD exacerbation 4. Toxic Metabolic Encephalopathy 5. Cdiff diarrhea 6. CKD 4/Moderate PEM / HTN/ HLD / Afib with RVR - resolved 6. Other issues per previous notes PLAN: Start PO Vancomycin Cont isolation Cont current meds as below Cont Atbx with Steroids AM labs Increase activity Review of Systems - Review of Systems Constitutional: negative: fever, chills, sweats, weakness, malaise, other Cardiovascular: negative: chest pain, palpitations, orthopnea, paroxysmal nocturnal dyspnea, edema, light headedness, other - Medications/Allergies Allergies/Adverse Reactions: Allergies Allergy/AdvReac Type Severity Reaction Status Date / Time codeine Allergy Verified 05/30/17 17:52 metronidazole [From Flagyl] Allergy Verified 05/30/17 17:52 morphine Allergy Verified 05/30/17 17:53 nitrofurantoin Allergy Verified 05/30/17 17:53 [From Macrobid] penicillin Allergy Verified 05/30/17 17:53 Sulfa (Sulfonamide AdvReac Intermediate Verified 05/30/17 17:55 Antibiotics) Medications: Current Medications Acetaminophen (Tylenol Elixir) 650 mg PO Q6H PRN PRN Reason: Fever > 101 or Mild Pain Acetaminophen (Tylenol) 650 mg NE Q6H PRN PRN Reason: Fever > 101 or Mild Pain Albuterol/Ipratropium (Duoneb) 3 ml NEB [id number] Last Admin: 04/15/18 18:41 Dose: 3 ml Cefuroxime Axetil (Ceftin) 250 mg PO Q12HR [facility] Last Admin: 04/15/18 20:28 Dose: 250 mg Clindamycin HCl (Cleocin) 300 mg PO 0700,1500,2300 [facility] Last Admin: 04/15/18 22:36 Dose: 300 mg Enoxaparin Sodium (Lovenox) 30 mg SC 0900 [facility] Last Admin: 04/15/18 09:13 Dose: 30 mg Potassium Chloride 40 meq/ (Sodium Chloride) 270 mls @ 135 mls/hr IVPB ASDIR PRN PRN Reason: FOR SERUM K+ 2.5 - 3.5 Last Admin: 04/14/18 12:52 Dose: 270 mls Potassium Chloride 40 meq/ (Device) 100 mls @ 50 mls/hr IVPB ASDIR PRN PRN Reason: FOR SERUM K+ 2.5 - 3.5 Magnesium Sulfate 1 gm/ Sodium (Chloride) 102 mls @ 102 mls/hr IV PRN PRN PRN Reason: MAG LEVEL 1.4 - 2.0 Magnesium Sulfate 2 gm/ Device 100 mls @ 100 mls/hr IVPB ASDIR PRN PRN Reason: MAGNESIUM < 1.4 Potassium Phosphate 9 mmol/ (Sodium Chloride) 103 mls @ 25.75 mls/hr IVPB ASDIR PRN PRN Reason: Phosphate 1.0-1.8 Potassium Phosphate 12 mmol/ (Sodium Chloride) 254 mls @ 63.5 mls/hr IV ASDIR PRN PRN Reason: Serum phosphate 0.5-0.9 Potassium Phosphate 15 mmol/ (Sodium Chloride) 255 mls @ 63.75 mls/hr IV ASDIR PRN PRN Reason: Serum Phos < 0.5 Insulin Human Regular (Humulin R) 0 units SC .MILD SLIDING SCALE PRN PRN Reason: Mild Correctional Scale Magnesium Oxide (Magnesium Oxide) 400 mg PO BIDPRN PRN PRN Reason: FOR SERUM MAG 1.4 - 2.0 Magnesium Oxide (Magnesium Oxide) 800 mg PO PRN PRN PRN Reason: FOR SERUM MAG < 1.4 Metoprolol Tartrate (Lopressor) 5 mg IVP Q6H PRN PRN Reason: SBP GREATER THAN 160 Last Admin: 04/14/18 06:55 Dose: 5 mg Miscellaneous Medication (Phos-Nak) 1 pkt PO TIDPRN PRN PRN Reason: FOR PHOS LEVEL 1.0 - 1.8 Miscellaneous Medication (Phos-Nak) 2 pkt PO TIDPRN PRN PRN Reason: FOR PHOS LEVEL 0.5 - 1.0 Ccu Electrolyte (Replacement Protocol) 0 each FS PRN PRN PRN Reason: FOR ELECTROLYTE REPLACEMENT Ondansetron HCl (Zofran) 4 mg IVP Q6H PRN PRN Reason: Nausea/Vomiting Last Admin: 04/15/18 01:23 Dose: 4 mg Pantoprazole Sodium (Protonix) 40 mg PO DAILY [facility] Last Admin: 04/15/18 09:12 Dose: 40 mg Potassium Chloride (K-Dur) 40 meq PO ASDIR PRN PRN Reason: FOR SERUM K+ 2.5 - 3.5 Potassium Chloride (Klor-Con) 40 meq PER TUBE ASDIR PRN PRN Reason: FOR SERUM K+ 2.5-3.5 Prednisone (Prednisone) 40 mg PO [facility] Stop: 04/18/18 08:01 Last Admin: 04/15/18 09:12 Dose: 40 mg Propranolol HCl (Inderal) 20 mg PO 0300,0900,1500,2100 [facility] Last Admin: 04/15/18 20:09 Dose: 20 mg
[2018-04-16] MEDS: Metoprolol Tartrate 5 MG/5 ML VIAL IVP PRN (02:18)
[2018-04-16] MEDS: Propranolol HCl 20 MG TAB PO SCH ×4 (03:11→23:03)
[2018-04-16] MEDS: hydrALAZINE 20 MG/ML VIAL SLOW IVP PRN (03:42)
[2018-04-16 04:13] LABS: ALT (SGPT) 9 U/L (8-55); AST (SGOT) 13 U/L (5-34); Albumin 2.6 g/dL (3.4-4.8); Alkaline Phosphatase 36 U/L (40-150); Anion Gap 12 mmol/L (10-20); BUN (Urea Nitrogen) 26 mg/dL (9.8-20.1); Bilirubin, Total 0.3 mg/dL (0.2-1.2); Calc. Creatinine Clearance 29 mL/min (70-130); Calcium 8.4 mg/dL (7.8-10.44); Carbon Dioxide 27 mmol/L (23-31); Chloride 104 mmol/L (98-107); Estimated GFR-MDRD 47; Globulin 2.7 g/dL (2.4-3.5); Glucose 95 mg/dL (83-110); Magnesium 1.9 mg/dL (1.6-2.6); Potassium 4.4 mmol/L (3.5-5.1); Protein, Total 5.3 g/dL (6.0-8.3); Sodium 139 mmol/L (136-145)
[2018-04-16 04:20] LABS: Band 1 % (5-11); Hemoglobin 10.2 g/dL (12.0-16.0); Hypochromia SLIGHT = 6-15 cells (100X) (0-5/hpf); Lymphocytes 4 % (21-51); MDiff Complete? YES; Mean Corpuscular HGB CONC 31.9 g/dL (32.0-36.0); Mean Corpuscular Hemoglobin 32.2 pg (27.0-31.0); Mean Platelet Volume 7.2 fL (7.4-10.4); Monocytes 2 % (0-10); Neutrophil 93 % (42-75); PLT Morphology Comment Appears Adequate; Platelet Count 355 thou/uL (130-400); RBC Distribution Width 13.2 % (11.5-14.5); Red Blood Cell (RBC) Count 3.16 mill/uL (4.20-5.40); White Blood Cell (WBC) Count 9.8 thou/uL (4.8-10.8)
[2018-04-16] MEDS: Enoxaparin Sodium 30 MG/0.3 ML SYRINGE SC SCH (08:04)
[2018-04-16] MEDS: predniSONE 20 MG TAB PO SCH (08:05)
[2018-04-16] MEDS: Cefuroxime Axetil 250 MG TAB PO SCH ×2 (08:05→23:02)
[2018-04-16] MEDS: Clindamycin 150 MG CAP PO SCH ×3 (08:05→23:03)
[2018-04-16] MEDS ORDERED: Vancomycin HCl 25 MG/ML Oral PO SCH (09:00)
--- NOTE | 2018-04-16 10:25 | PRG ---
DATE OF SERVICE: 04/16/2018 SERVICE: Pulmonary Medicine INTERVAL HISTORY: The patient is doing fine from a respiratory standpoint. She was extubated yester day. Since then, she has had no respiratory events. She has yet to get out of bed into a chair. Th at being said, she demonstrates decent strength and is feeding herself this morning. Otherwise, ther e has been no interval change to her condition. She specifically denies cough, fevers, chills, short ness of breath. Nursing reports no events overnight. PHYSICAL EXAMINATION: VITAL SIGNS: Afebrile, pulse 94, blood pressure 188/79, respirations 15, saturation 99% on -08/22 lit ers nasal cannula. GENERAL: The patient is awake, alert, in no apparent distress. LUNGS: There is decreased air entry. Slightly prolonged expiratory phase is still present. I do no t appreciate the same amount of wheezing, rhonchi, or crackles that were previously present. All thr ee still exist; however. HEART: Normal rate, regular. ABDOMEN: Soft, nontender, nondistended. Bowel sounds are positive. MUSCULOSKELETAL: No cyanosis or clubbing. There is no pitting in the bilateral lower extremities. NEUROLOGIC: Grossly nonfocal. LABORATORY DATA: WBC 9.8, hemoglobin 10.2, platelets 355,000. Neutrophil count is 93% on top of 1% bands. Creatinine 1.11 and roughly stable. Basic metabolic profile and liver function studies are e ssentially unremarkable. Blood sugar ranges from 104-145. Urinalysis is unremarkable. Blood cultur es x2 and urine culture is negative. C. diff antigen and toxin are both positive, though she is real ly not behaving as though she has a significant colitis. ASSESSMENT: 1. Acute hypoxic and hypercapnic respiratory failure, resolving. 2. Chronic obstructive pulmonary disease with acute exacerbation. 3. Acute on chronic diastolic heart failure. 4. Atrial fibrillation with rapid ventricular response, returned to sinus rhythm. 5. Deconditioning, severe. 6. Sacral decubitus ulcer, stage 4, present on admission. 7. Recent urinary tract infection. 8. Clostridium difficile colitis, possible. DISCUSSION AND PLAN: We will continue to diurese the patient to maintain euvolemia. She can be kramer sitioned to the medical unit. We will focus on mobilizing the patient by getting her involved with P hysical Therapy, into a chair, and removing her Sunshine catheter. Pulmonary Critical Care will contin ue to follow along for the time being.
[2018-04-16] MEDS: Vancomycin HCl 25 MG/ML Oral PO SCH ×2 (11:49→18:03)
[2018-04-16] MEDS: Saccharomyces boulardii 250 MG CAP PO SCH (11:49)
[2018-04-16 14:17] VITALS: BMI 19.4
--- NOTE | 2018-04-16 22:49 | PDOC.PN ---
- Subjective Encounter Start Date: 04/16/18 Encounter Start Time: 13:00 Patient seen and examined for Resp failure. No new complaints. No overnight events - Objective MAR Reviewed: Yes Vital Signs & Weight: Vital Signs (12 hours) Temp Pulse Pulse Pulse Resp BP BP 04/16/18 18:28 85 20 04/16/18 16:00 97.0 F L 04/16/18 13:15 85 85 155/73 H 155/74 H 04/16/18 12:55 86 20 04/16/18 12:00 97.5 F L Pulse Ox Pulse Ox Pulse Ox 04/16/18 18:28 97 04/16/18 16:00 04/16/18 13:15 97 97 04/16/18 12:55 99 04/16/18 12:00 Weight Admit Weight 149 lb Weight 113 lb 1.554 oz Most Recent Monitor Data Heart Rate from ECG 84 NIBP 171/71 NIBP BP-Mean 146 Respiration from ECG 24 SpO2 97 I&O: 04/15/18 04/16/18 04/17/18 06:59 06:59 06:59 Intake Total 1301.6 1020 1260 Output Total 762 565 231 Balance 539.6 455 1029 Result Diagrams: 04/16/18 03:26 04/16/18 03:26 EKG Reviewed by me: Yes (Tele SR) Phys Exam - Physical Examination Constitutional: NAD Respiratory: no wheezing Scat rhonchi/rales Cardiovascular: RRR, no rub Gastrointestinal: soft, non-tender Neurological: moves all 4 limbs Dx/Plan - Plan PT/OT, DVT proph w/lovenox, DVT proph w/SCDs IMPRESSION: 1. Acute hypoxic/hypercapnic resp failure - s/p Mech Vent / Sepsis with acute organ dysfunction 2. Acute on chronic diastolic HF exacerbation - stage C 3. COPD exacerbation 4. Toxic Metabolic Encephalopathy 5. Cdiff diarrhea ?colitis 6. CKD 4/Moderate PEM / HTN/ HLD / Afib with RVR - resolved / Stage 4 decub ulcer present on admission 6. Other issues per previous notes PLAN: cont PO Vancomycin with isolation Cont current meds as below Cont Atbx with Steroids Cont Inderal Increase activity Await Medical bed Cont wound care Review of Systems - Review of Systems Constitutional: negative: fever, chills, sweats, weakness, malaise, other Cardiovascular: negative: chest pain, palpitations, orthopnea, paroxysmal nocturnal dyspnea, edema, light headedness, other - Medications/Allergies Allergies/Adverse Reactions: Allergies Allergy/AdvReac Type Severity Reaction Status Date / Time codeine Allergy Verified 05/30/17 17:52 metronidazole [From Flagyl] Allergy Verified 05/30/17 17:52 morphine Allergy Verified 05/30/17 17:53 nitrofurantoin Allergy Verified 05/30/17 17:53 [From Macrobid] penicillin Allergy Verified 05/30/17 17:53 Sulfa (Sulfonamide AdvReac Intermediate Verified 05/30/17 17:55 Antibiotics) Medications: Current Medications Acetaminophen (Tylenol Elixir) 650 mg PO Q6H PRN PRN Reason: Fever > 101 or Mild Pain Acetaminophen (Tylenol) 650 mg MA Q6H PRN PRN Reason: Fever > 101 or Mild Pain Albuterol/Ipratropium (Duoneb) 3 ml NEB [id number] [facility] Last Admin: 04/16/18 18:28 Dose: 3 ml Cefuroxime Axetil (Ceftin) 250 mg PO Q12HR [facility] Last Admin: 04/16/18 08:05 Dose: 250 mg Clindamycin HCl (Cleocin) 300 mg PO 0700,1500,2300 [facility] Last Admin: 04/16/18 15:20 Dose: 300 mg Enoxaparin Sodium (Lovenox) 30 mg SC 0900 [facility] Last Admin: 04/16/18 08:04 Dose: 30 mg Furosemide (Lasix) 40 mg PO DAILY[facility] Hydralazine HCl (Apresoline) 10 mg SLOW IVP Q3H PRN PRN Reason: SBP > 180 Last Admin: 04/16/18 03:42 Dose: 10 mg Insulin Human Regular (Humulin R) 0 units SC .MILD SLIDING SCALE PRN PRN Reason: Mild Correctional Scale Lisinopril (Zestril) 5 mg PO DAILY [facility] Ccu Electrolyte (Replacement Protocol) 0 each FS PRN PRN PRN Reason: FOR ELECTROLYTE REPLACEMENT Ondansetron HCl (Zofran) 4 mg IVP Q6H PRN PRN Reason: Nausea/Vomiting Last Admin: 04/15/18 01:23 Dose: 4 mg Pantoprazole Sodium (Protonix) 40 mg PO DAILY [facility] Last Admin: 04/16/18 08:05 Dose: 40 mg Prednisone (Prednisone) 40 mg PO QAM-WM [facility] Stop: 04/18/18 08:01 Last Admin: 04/16/18 08:05 Dose: 40 mg Propranolol HCl (Inderal) 20 mg PO 0300,0900,1500,2100 [facility] Stop: 04/16/18 23:59 Last Admin: 04/16/18 16:00 Dose: 20 mg Propranolol HCl (Inderal La) 80 mg PO DAILY [facility] Saccharomyces Boulardii (Florastor) 250 mg PO DAILY [facility] Last Admin: 04/16/18 11:49 Dose: 250 mg Vancomycin HCl (First Vancomycin) 125 mg PO Q6HR [facility] Last Admin: 04/16/18 18:03 Dose: 125 mg
[2018-04-17] MEDS: Vancomycin HCl 25 MG/ML Oral PO SCH ×5 (01:05→23:45)
[2018-04-17] MEDS: Clindamycin 150 MG CAP PO SCH ×3 (06:48→23:45)
[2018-04-17] MEDS: Saccharomyces boulardii 250 MG CAP PO SCH (08:23)
[2018-04-17] MEDS: Furosemide 40 MG TAB PO SCH (08:24)
[2018-04-17] MEDS: predniSONE 20 MG TAB PO SCH (08:24)
[2018-04-17] MEDS: Lisinopril 5 MG TAB PO SCH (08:24)
[2018-04-17] MEDS: Enoxaparin Sodium 30 MG/0.3 ML SYRINGE SC SCH (08:25)
[2018-04-17] MEDS: Cefuroxime Axetil 250 MG TAB PO SCH ×2 (08:25→20:08)
[2018-04-17] MEDS: Propranolol HCl LA 80 MG CAP PO SCH (08:26)
--- NOTE | 2018-04-17 13:15 | PRG ---
DATE OF SERVICE: 04/17/2018 SERVICE: Pulmonary Medicine. INTERVAL HISTORY: The patient is doing fine from a respiratory standpoint. She denies any current chest pain, nausea, vomiting, fevers or chills. Otherwise, there has been no interval change to her condition. She has been weaned down to 1 liter nasal cannula, which is what she wears at home. Otherwise, there were no interval events overnight. She is demonstrating improving strength. That being said, she remains bedbound and has difficult time sitting up without significant assistance. PHYSICAL EXAMINATION: VITAL SIGNS: Afebrile, pulse 89, blood pressure 171/93, respirations 16, saturation 94% on 2 liters nasal cannula. GENERAL: The patient is awake and alert, in no apparent distress. LUNGS: Much improved air entry. There is a prolonged expiratory phase, but I do not hear any wheezing. Crackles are much improved. No rhonchi. HEART: Normal rate, regular. ABDOMEN: Soft, nontender, nondistended. Bowel sounds are positive. MUSCULOSKELETAL: No cyanosis or clubbing. There is 2+ pitting in the bilateral lower extremities. Interestingly, there is only trace pitting at the sacrum. GENITOURINARY: Sunshine catheter in place. NEUROLOGIC: Grossly nonfocal. ASSESSMENT: 1. Acute on chronic hypoxic and hypercapnic respiratory failure, resolved. 2. Chronic obstructive pulmonary disease with acute exacerbation. 3. Acute on chronic diastolic heart failure. 4. Atrial fibrillation with rapid ventricular response, returned to sinus rhythm. 5. Deconditioning, severe. 6. Urinary tract infection, recent. 7. Abnormal C. diff antigen positivity. 8. Sacral decubitus ulcer, stage 4, present on admission. DISCUSSION AND PLAN: She can complete her home course of antibiotic for her recent UTI. Other antibiotics per primary service. From my perspective, the patient is stable for transition back out of the hospital. At this point, I will sign off. If the patient runs into any acute respiratory issues moving forward and the family would like aggressive care, please give me a phone call. TIFFANIE
--- NOTE | 2018-04-17 23:09 | PDOC.PN ---
- Subjective Encounter Start Date: 04/17/18 Encounter Start Time: 11:30 Patient seen and examined for Resp failure. No new complaints. No overnight events - Objective MAR Reviewed: Yes Vital Signs & Weight: Vital Signs (12 hours) Temp Pulse Resp BP Pulse Ox 04/17/18 20:59 98 F 79 16 170/74 H 97 04/17/18 19:06 78 18 99 04/17/18 12:35 89 16 94 L 04/17/18 12:00 97.4 F L 78 18 173/82 H Weight Admit Weight 149 lb Weight 113 lb 1.554 oz Most Recent Monitor Data Heart Rate from ECG 73 NIBP 154/71 NIBP BP-Mean 114 Respiration from ECG 21 SpO2 98 I&O: 04/16/18 04/17/18 04/18/18 06:59 06:59 06:59 Intake Total 1020 1560 600 Output Total 565 691 Balance 455 869 600 Result Diagrams: 04/16/18 03:26 04/16/18 03:26 Additional Labs: Accuchecks 04/17/18 04/17/18 04/17/18 20:56 17:02 10:42 POC Glucose 132 H 146 H 133 H 04/17/18 04:25 POC Glucose 127 H Phys Exam - Physical Examination Constitutional: NAD Respiratory: no wheezing B/L rhonchi Cardiovascular: RRR, no rub Gastrointestinal: soft, positive bowel sounds Neurological: moves all 4 limbs Dx/Plan - Plan DVT proph w/SCDs IMPRESSION: 1. Acute hypoxic/hypercapnic resp failure - s/p Mech Vent / Sepsis with acute organ dysfunction 2. Acute on chronic diastolic HF exacerbation - stage C 3. COPD exacerbation 4. Toxic Metabolic Encephalopathy - improving 5. Cdiff diarrhea ?colitis 6. CKD 4/Moderate PEM / HTN/ HLD / Afib with RVR - resolved / Stage 4 decub ulcer present on admission ?infected / Recent UTI on Atbx 6. Other issues per previous notes PLAN: Cont Atbx with Steroids (Complete Atbx from last dc) Cont PO Vancomycin with isolation for Cdiff Cont current meds as below Nebs Cont Inderal Cont wound care AM labs Review of Systems - Review of Systems Constitutional: negative: fever, chills, sweats, weakness, malaise, other Gastrointestinal: negative: Nausea, Vomiting, Abdominal Pain, Diarrhea, Constipation, Melena, Hematochezia, Other - Medications/Allergies Allergies/Adverse Reactions: Allergies Allergy/AdvReac Type Severity Reaction Status Date / Time codeine Allergy Verified 05/30/17 17:52 metronidazole [From Flagyl] Allergy Verified 05/30/17 17:52 morphine Allergy Verified 05/30/17 17:53 nitrofurantoin Allergy Verified 05/30/17 17:53 [From Macrobid] penicillin Allergy Verified 05/30/17 17:53 Sulfa (Sulfonamide AdvReac Intermediate Verified 05/30/17 17:55 Antibiotics) Medications: Current Medications Acetaminophen (Tylenol Elixir) 650 mg PO Q6H PRN PRN Reason: Fever > 101 or Mild Pain Acetaminophen (Tylenol) 650 mg WA Q6H PRN PRN Reason: Fever > 101 or Mild Pain Albuterol/Ipratropium (Duoneb) 3 ml NEB [id number] [facility] Last Admin: 04/17/18 19:06 Dose: 3 ml Cefuroxime Axetil (Ceftin) 250 mg PO Q12HR [facility] Last Admin: 04/17/18 20:08 Dose: 250 mg Clindamycin HCl (Cleocin) 300 mg PO 0700,1500,2300 [facility] Last Admin: 04/17/18 16:34 Dose: 300 mg Enoxaparin Sodium (Lovenox) 30 mg SC 0900 [facility] Last Admin: 04/17/18 08:25 Dose: 30 mg Furosemide (Lasix) 40 [facility] Last Admin: 04/17/18 08:24 Dose: 40 mg Hydralazine HCl (Apresoline) 10 mg SLOW IVP Q3H PRN PRN Reason: SBP > 180 Last Admin: 04/16/18 03:42 Dose: 10 mg Insulin Human Regular (Humulin R) 0 units SC .MILD SLIDING SCALE PRN PRN Reason: Mild Correctional Scale Lisinopril (Zestril) 5 mg PO DAILY [facility] Last Admin: 04/17/18 08:24 Dose: 5 mg Ccu Electrolyte (Replacement Protocol) 0 each FS PRN PRN PRN Reason: FOR ELECTROLYTE REPLACEMENT Ondansetron HCl (Zofran) 4 mg IVP Q6H PRN PRN Reason: Nausea/Vomiting Last Admin: 04/15/18 01:23 Dose: 4 mg Pantoprazole Sodium (Protonix) 40 mg PO DAILY [facility] Last Admin: 04/17/18 08:23 Dose: 40 mg Prednisone (Prednisone) 40 mg PO [facility] Stop: 04/18/18 08:01 Last Admin: 04/17/18 08:24 Dose: 40 mg Propranolol HCl (Inderal La) 80 mg PO DAILY [facility] Last Admin: 04/17/18 08:26 Dose: 80 mg Saccharomyces Boulardii (Florastor) 250 mg PO DAILY [facility] Last Admin: 04/17/18 08:23 Dose: 250 mg Vancomycin HCl (First Vancomycin) 125 mg PO Q6HR [facility] Last Admin: 04/17/18 18:29 Dose: 125 mg
[2018-04-18 05:46] LABS: #Lymphocytes 0.7 thou/uL (1.20-3.40); #Monocytes 0.6 thou/uL (0.11-0.59); #Neutrophils 8.8 thou/uL (1.40-6.50); %Basophils 0.1 % (0.0-1.0); %Eosinophils 0.3 % (0.0-10.0); %Lymphocytes 6.6 % (21.0-51.0); %Monocytes 6.2 % (0.0-10.0); %Neutrophils 86.8 % (42.0-75.0); Hemoglobin 9.4 g/dL (12.0-16.0); Mean Corpuscular HGB CONC 32.8 g/dL (32.0-36.0); Mean Corpuscular Hemoglobin 33.2 pg (27.0-31.0); Mean Platelet Volume 6.7 fL (7.4-10.4); Platelet Count 495 thou/uL (130-400); RBC Distribution Width 13.5 % (11.5-14.5); Red Blood Cell (RBC) Count 2.82 mill/uL (4.20-5.40); White Blood Cell (WBC) Count 10.1 thou/uL (4.8-10.8)
[2018-04-18] MEDS: Vancomycin HCl 25 MG/ML Oral PO SCH ×2 (06:01→12:27)
[2018-04-18] MEDS: Clindamycin 150 MG CAP PO SCH (06:01)
[2018-04-18] MEDS: hydrALAZINE 20 MG/ML VIAL SLOW IVP PRN (06:04)
[2018-04-18 06:09] LABS: ALT (SGPT) 11 U/L (8-55); AST (SGOT) 12 U/L (5-34); Albumin 2.6 g/dL (3.4-4.8); Alkaline Phosphatase 38 U/L (40-150); Anion Gap 9 mmol/L (10-20); BUN (Urea Nitrogen) 28 mg/dL (9.8-20.1); Bilirubin, Total 0.3 mg/dL (0.2-1.2); Calc. Creatinine Clearance 34 mL/min (70-130); Calcium 8.5 mg/dL (7.8-10.44); Carbon Dioxide 28 mmol/L (23-31); Chloride 100 mmol/L (98-107); Estimated GFR-MDRD 55; Globulin 2.5 g/dL (2.4-3.5); Glucose 82 mg/dL (83-110); Magnesium 1.6 mg/dL (1.6-2.6); Phosphorus 2.4 mg/dL (2.3-4.7); Potassium 4.2 mmol/L (3.5-5.1); Protein, Total 5.1 g/dL (6.0-8.3); Sodium 133 mmol/L (136-145)
[2018-04-18 07:12] VITALS: TEMP 98
[2018-04-18] MEDS: Furosemide 40 MG TAB PO SCH (08:48)
[2018-04-18] MEDS: predniSONE 20 MG TAB PO SCH (08:48)
[2018-04-18] MEDS: Propranolol HCl LA 80 MG CAP PO SCH (08:49)
[2018-04-18] MEDS: Cefuroxime Axetil 250 MG TAB PO SCH (08:49)
[2018-04-18] MEDS: Saccharomyces boulardii 250 MG CAP PO SCH (08:49)
[2018-04-18] MEDS: Enoxaparin Sodium 30 MG/0.3 ML SYRINGE SC SCH (08:49)
[2018-04-18] MEDS: Lisinopril 5 MG TAB PO SCH (08:49)
[2018-04-18 12:14] VITALS: BP 168/88
--- NOTE | 2018-04-19 14:26 | DIS ---
DATE OF DISCHARGE: 04/18/2018 DISCHARGE DISPOSITION: To [facility] facility. FOLLOWUP: 1. Followup with Dr. Sanabria at the nursing facility. 2. Follow up with Cardiology, Dr. De La Cruz and Pulmonary, Dr. Gutierrez in 2 weeks. BRIEF HOSPITAL COURSE: The patient is an 87-year-old female with hypertension, hyperlipidemia who pr esented to the hospital on 04/12/2018 with unresponsiveness. [facility] with a diagnosis of metabolic encephalopathy with acute cystitis. Please refer to the history and physical as well as the discharge summary dated 04/11/2018 for further details. The patient was admitted to the intensive care unit with a diagnosis of acute hypoxic and hypercapnic respiratory failure. ABG showed pH of 7.03 with pCO2 of 146, pO2 of 49.4 with bicarbonate of 37.6. She was placed on mechanical ventilation. The patient was seen by Pulmonary, Dr. Gutierrez. She was later extubated and transferred to the medical floor. She has been cleared by Pulmonary for discharg e. The patient was also evaluated by Cardiology. Cardiology consult was placed on admission for elevate d BNP. She improved with one dose of IV Lasix. Recent echocardiogram showed normal ejection fractio n. No other recommendations were made by Cardiology. The patient received wound care for pressure u lcers. Due to diarrhea, her stool was checked that showed C. diff positive. Toxin for C. diff was a lso positive. She has been started on oral vancomycin. She will continue vancomycin for 12 more day s. The antibiotics from last admission that included Ceftin and clindamycin will be completed on 08/2017. The patient was seen and examined on the day of discharge. FINAL DIAGNOSES: 1. Acute hypoxic and hypercapnic respiratory failure. 2. Acute on chronic diastolic heart failure exacerbation. 3. Sepsis with acute organ dysfunction. 4. Chronic obstructive pulmonary disease exacerbation. 5. Toxic metabolic encephalopathy, improving. 6. Clostridium difficile diarrhea with questionable colitis. 7. Chronic kidney disease stage 4. 8. Moderate protein energy malnutrition. 9. Hypertension. 10. Hyperlipidemia. 11. Atrial fibrillation with rapid ventricular response. 12. Stage IV decubitus ulcer present on admission. 13. Recent urinary tract infection, on antibiotics. 14. Chronic anemia. Plan of care was discussed with the patient. Total time coordinating the discharge of this patient was 38 minutes.
== END 2018-04-18 13:52 | DRG 871 ==
LOC: ERS 08:52 → CCU 11:08 → T4-A 04-17 00:03
PROVIDERS: ADMIT Internal Medicine; ATTEND Internal Medicine
PROC: 5A1945Z Respiratory Ventilation, 24-96 Consecutive Hours (ICD-10-PCS; principal; 2018-04-12)
PROC: 0BH17EZ Insertion of Endotracheal Airway into Trachea, Via Natural or Artificial Opening (ICD-10-PCS; 2018-04-12)
DX: A41.9 Sepsis, unspecified organism (principal); L89.154 Pressure ulcer of sacral region, stage 4; J96.01 Acute respiratory failure with hypoxia; J96.02 Acute respiratory failure with hypercapnia; I50.33 Acute on chronic diastolic (congestive) heart failure; G92 Toxic encephalopathy; N39.0 Urinary tract infection, site not specified; J44.1 Chronic obstructive pulmonary disease with (acute) exacerbation; I47.1 Supraventricular tachycardia; A04.72 Enterocolitis due to Clostridium difficile, not specified as recurrent; E44.0 Moderate protein-calorie malnutrition; N17.9 Acute kidney failure, unspecified; N18.4 Chronic kidney disease, stage 4 (severe); I13.0 Hypertensive heart and chronic kidney disease with heart failure and stage 1 through stage 4 chronic kidney disease, or unspecified chronic kidney disease; Z85.42 Personal history of malignant neoplasm of other parts of uterus; Z68.25 Body mass index [BMI] 25.0-25.9, adult; I48.0 Paroxysmal atrial fibrillation; R55 Syncope and collapse; E78.5 Hyperlipidemia, unspecified; Z88.5 Allergy status to narcotic agent; Z88.0 Allergy status to penicillin; Z88.1 Allergy status to other antibiotic agents; Z88.2 Allergy status to sulfonamides; Z88.8 Allergy status to other drugs, medicaments and biological substances; Z79.899 Other long term (current) drug therapy; Z79.2 Long term (current) use of antibiotics; Z79.891 Long term (current) use of opiate analgesic; R53.81 Other malaise
CPT/HCPCS: 31500; 36415; 36416; 51702; 70450; 71045; 80053; 81003; 81015; 82553; 82805; 83605; 83735; 83880; 84100; 84443; 84484; 85007; 85025; 85027; 87040; 87086; 87324; 87449; 87493; 93005; 93010; 94002; 94003; 94640; 96365; 96375; G8978-GP-CM; G8979-GP-CL; J0360; J0696; J1650; J1940; J2310; J2405; J2704; J3370; J3480; J3490; J7050; J7506; J7620; S0028

== ENCOUNTER 2018-04-22 12:58 | Emergency (ER) | payer MEDICARE, MEDICAID ==
--- NOTE | 2018-04-22 14:47 | RAD ---
LEFT HIP 2 VIEWS: Date: 04/22/18 HISTORY: Patient fell, with hip pain. FINDINGS: The bones are demineralized. A left hip prosthesis is in satisfactory position. There are no signs of any acute injury. IMPRESSION: No acute fracture. POS: [facility]
--- NOTE | 2018-04-22 14:47 | RAD ---
AP VIEW PELVIS: Date: 04/22/18 INDICATION: History of found down at senior living. COMPARISON: Prior exam dated 10/18/17. FINDINGS: There is diffuse osteopenia. There is a left hip endoprosthesis again demonstrated. Bowel gas pattern is unobstructed. There are scattered vascular calcifications. IMPRESSION: No acute osseous abnormality. POS: [facility]
== END 2018-04-22 14:43 | disposition home or self-care (01) ==
LOC: ERS 12:58
DX: S70.02XA Contusion of left hip, initial encounter (principal); I50.9 Heart failure, unspecified; J44.9 Chronic obstructive pulmonary disease, unspecified; I48.91 Unspecified atrial fibrillation; W19.XXXA Unspecified fall, initial encounter
CPT/HCPCS: 72170

== ENCOUNTER 2018-05-04 10:33 | Outpatient (CLI) | payer MEDICARE, MEDICAID | END 2018-05-04 10:34 | disposition home or self-care (01) | LOC: BICCT 10:33 | PROVIDERS: ATTEND Radiology Radiation Oncology | DX: C54.3 Malignant neoplasm of fundus uteri (principal); J90 Pleural effusion, not elsewhere classified; J98.11 Atelectasis; Z90.49 Acquired absence of other specified parts of digestive tract; Z96.642 Presence of left artificial hip joint; Z92.3 Personal history of irradiation | CPT/HCPCS: 74176 ==

== ENCOUNTER 2018-07-01 02:04 | Emergency (ER) | payer MEDICARE, MEDICAID ==
--- NOTE | 2018-07-01 09:12 | RAD ---
LEFT HIP 2 VIEWS: Date: 07/01/18 HISTORY: Pain. Transfer. COMPARISON: Radiograph dated 04/22/18. FINDINGS: Mild soft tissue swelling over the lateral margin of the thigh. No acute fracture. Left hip arthropla sty is in place. IMPRESSION: No acute abnormality. POS: [facility]
--- NOTE | 2018-07-01 09:13 | RAD ---
PELVIS 1 VIEW: Date: 07/01/18 HISTORY: Fall. COMPARISON: Radiograph dated 04/22/18. FINDINGS: Left hip arthroplasty is in place. No acute fracture. Bones are osteopenic. Advanced degenerative radhames nges of lower lumbar spine. IMPRESSION: No acute abnormality. POS: [facility]
== END 2018-07-01 03:11 | disposition home or self-care (01) ==
LOC: ERS 02:04
DX: M25.552 Pain in left hip (principal); L89.150 Pressure ulcer of sacral region, unstageable; I11.0 Hypertensive heart disease with heart failure; I50.9 Heart failure, unspecified; J44.9 Chronic obstructive pulmonary disease, unspecified; E78.00 Pure hypercholesterolemia, unspecified; M19.90 Unspecified osteoarthritis, unspecified site; K21.9 Gastro-esophageal reflux disease without esophagitis; I48.91 Unspecified atrial fibrillation; Z87.891 Personal history of nicotine dependence; W06.XXXA Fall from bed, initial encounter
CPT/HCPCS: 72170

== ENCOUNTER 2018-08-01 11:23 | Inpatient (IN) | payer MEDICARE, MEDICAID ==
[2018-08-01] MEDS ORDERED: methylPREDNISolone Sod Succ/PF 125 MG/2 ML VIAL ONE (11:37)
[2018-08-01 12:11] LABS: Bilirubin Negative (Negative); Blood, Urine Small (Negative); Clarity TURBID (Clear); Glucose, Urine (Dipstick) Negative (Negative); Leukocyte Large (Negative); Nitrite Negative (Negative); Protein, Urine (Dipstick) 100 mg/dL (Neg-Trace); Specific Gravity, Urine 1.016 (1.002-1.036); Urobilinogen 0.2 mg/dL (0.2-1.0)
[2018-08-01 12:13] LABS: Bacteria/HPF 4+ HPF (None Seen); Squamous Epithelial 0-3 HPF (0-3)
[2018-08-01 12:19] LABS: Pathc Cast-AUWi Flag 7.98 (0-2.49); Yeast-AUWi Flag 508.6 (0-25.0)
[2018-08-01 12:38] LABS: #Monocytes 1.1 thou/uL (0.11-0.59); #Neutrophils 13.9 thou/uL (1.40-6.50); %Basophils 0.2 % (0.0-1.0); %Eosinophils 0.1 % (0.0-10.0); %Lymphocytes 6.2 % (21.0-51.0); %Monocytes 6.7 % (0.0-10.0); %Neutrophils 86.8 % (42.0-75.0); Hemoglobin 12.7 g/dL (12.0-16.0); Mean Corpuscular HGB CONC 30.2 g/dL (32.0-36.0); Mean Corpuscular Hemoglobin 31.8 pg (27.0-31.0); Mean Platelet Volume 6.9 fL (7.4-10.4); Platelet Count 374 thou/uL (130-400); RBC Distribution Width 13.4 % (11.5-14.5)
[2018-08-01 12:48] LABS: Hyaline Casts/LPF 0-3 HYALINE CAST LPF (0-3 Hyaline); Other Casts/LPF None Seen LPF (0-3 Hyaline); Yeast-All Forms None Seen HPF (None Seen)
[2018-08-01 12:49] LABS: RBC Morphology Normal
--- NOTE | 2018-08-01 12:57 | RAD ---
CHEST ONE VIEW: History: Cough. Comparison: 04-12-18 FINDINGS: There is a multifocal area of airspace opacities in the right lung base as well as a right lower lobe nodule. Small right effusion. No pneumothorax. Lungs are slightly hyperinflated. No acute osseous abnormality. Right axillary calci fications are present. IMPRESSION: Right lower lobe airspace opacities concerning for infection. There is also an associated nodule. Liza se follow up imaging is recommended. POS: [facility]
[2018-08-01 13:16] LABS: CKMB 2.2 ng/mL (0-6.6)
[2018-08-01 13:24] LABS: ALT (SGPT) 10 U/L (8-55); AST (SGOT) 23 U/L (5-34); Albumin 3.1 g/dL (3.4-4.8); Alkaline Phosphatase 69 U/L (40-150); Anion Gap 25 mmol/L (10-20); BUN (Urea Nitrogen) 65 mg/dL (9.8-20.1); Bilirubin, Total 0.3 mg/dL (0.2-1.2); Calc. Creatinine Clearance 0 mL/min (70-130); Calcium 9.7 mg/dL (7.8-10.44); Carbon Dioxide 22 mmol/L (23-31); Chloride 96 mmol/L (98-107); Estimated GFR-MDRD 10; Globulin 3.8 g/dL (2.4-3.5); Glucose 88 mg/dL (83-110); Protein, Total 6.9 g/dL (6.0-8.3); Sodium 138 mmol/L (136-145)
[2018-08-01] MEDS ORDERED: Cefepime 2 GM in Sodium Chloride 0.9% 100 ML IVPB ONE (16:45)
[2018-08-01] MEDS ORDERED: Norepinephrine 8 MG/250 ML BAG IVPB SCH (16:45)
[2018-08-01] MEDS ORDERED: Guaifenesin DM 100-10/5 ML UDCUP PO PRN (16:49)
[2018-08-01] MEDS ORDERED: Acetaminophen 650 MG Suppository PR PRN (16:49)
[2018-08-01] MEDS ORDERED: CCU Electrolyte Replacement 1 EACH FS ONE (16:49)
[2018-08-01] MEDS ORDERED: Norepinephrine 8 MG/0.9% NS 250 ML IVPB PRN (16:49)
[2018-08-01] MEDS ORDERED: Acetaminophen 325 MG TAB PO PRN (16:49)
[2018-08-01] MEDS ORDERED: Vancomycin HCl 1 GM in Sodium Chloride 0.9% 250 ML 250 ML IVPB SCH (16:49)
[2018-08-01] MEDS ORDERED: Potassium Chloride 20 MEQ TAB PO PRN (16:59)
[2018-08-01] MEDS ORDERED: Magnesium Oxide 400 MG TAB PO PRN ×2 (16:59)
[2018-08-01] MEDS ORDERED: Potassium Chloride 40 MEQ in Premix Bag 1 BAG IVPB PRN (16:59)
[2018-08-01] MEDS ORDERED: Potassium Chloride 40 MEQ in Sodium Chloride 0.9% 250 ML 250 ML IVPB PRN (16:59)
[2018-08-01] MEDS ORDERED: Potassium Phosphate 9 MMOL in Sodium Chloride 0.9% 100 ML IVPB PRN (16:59)
[2018-08-01] MEDS ORDERED: CCU ELECTROLYTE REPLACEMENT PROTOCOL FS PRN (16:59)
[2018-08-01] MEDS ORDERED: Potassium Phosphate 15 MMOL in Sodium Chloride 0.9% 250 ML 250 ML IV PRN (16:59)
[2018-08-01] MEDS ORDERED: Magnesium 2 GM/NS 0.9% 100 ML 2 GM in Premix Bag 1 BAG IVPB PRN (16:59)
[2018-08-01] MEDS ORDERED: Potassium Phosphate 12 MMOL in Sodium Chloride 0.9% 250 ML 250 ML IV PRN (16:59)
[2018-08-01 17:03] LABS: Troponin I 0.124 ng/mL (< 0.028)
--- NOTE | 2018-08-01 17:19 | RAD ---
RADIOGRAPH CHEST 1 VIEW: Date: 08/01/18 Time: 2:49 p.m. HISTORY: 87-year-old female with dyspnea. COMPARISON: 08/01/18 at 10:58 a.m. FINDINGS: There has been interval insertion of a vertically oriented central vascular catheter descending from the right medial neck, with distal tip overlying the expected location of the mid to upper portion of the SVC. No pneumothorax is identified. Again demonstrated is the infiltrate at the right lower lung zone. There is bilateral hyperinflation consistent with COPD. No cardiomegaly. IMPRESSION: 1. Interval placement of right internal jugular central venous catheter. 2. No pneumothorax. 3. Right lower lung zone infiltrate. 4. Emphysema. JN [] POS: [facility]
[2018-08-01] MEDS ORDERED: Norepinephrine 8 MG/0.9% NS 250 ML ONE (18:35)
--- NOTE | 2018-08-01 18:39 | HP ---
REASON FOR ADMISSION: Septic shock, acute kidney injury, pneumonia, urinary tract infection, and COPD exacerbation. HISTORY OF PRESENTING ILLNESS: The patient was sent from skilled nursing for unresponsiveness. She lives at [facility] [place]. The patient apparently had her hair done this morning and soon after she became unresponsive at the skilled nursing. She has been having coughing spells and usually has difficulty bringing them out. Please note, the patient is very lethargic and very hard of hearing. Most of this history is obtained by talking to the patient's daughter , who is here at bedside. [facility] called her saying she was unresponsive. She in fact saw her last night. She was a bit groggy, then ate her dinner. She did not complain of any urinary frequency or urgency or altered sputum or fever yesterday evening. PAST MEDICAL AND SURGICAL HISTORY: The patient has been at [facility] for almost a year now. She broke her hip and has had hemiarthroplasty and since then has been completely bed-bound. She also has stage IV sacral decubitus, which has been there for almost a year. She was hospitalized in March of this year for respiratory failure and was intubated as well for 2 days then. She has known history of diastolic dysfunction. 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 CURRENT MEDICATIONS: The patient is on; 1. Tylenol 650 mg q.6 hourly p.r.n. 2. Calcium carbonate 600 mg p.o. daily. 3. Doxycycline 100 mg twice daily for upper respiratory infection, which was started on the of this month, end date for therapy was . 4. DuoNeb q.6 hourly p.r.n. 5. Ferrous sulfate 325 mg p.o. 3 times daily. 6. Lasix 20 mg 2 times a day. 7. Lisinopril 10 mg daily. 8. Multivitamin 1 tablet once daily. 9. Conestoga p.r.n. for pain. 10. Remeron 15 mg half tablet p.o. daily. 11. Ranitidine 150 mg twice daily. 12. Vitamin B12 of 2000 mcg daily. 13. Vitamin C 500 mg twice daily. 14. Zetia 10 mg daily. ALLERGIES: THE PATIENT IS ALLERGIC TO MULTIPLE MEDICATIONS INCLUDING CODEINE, FLAGYL, MACROBID, MORPHINE, PENICILLIN, AND SULFA. PERSONAL HISTORY: Quit smoking in 1999, prior to which smoked half to one pack a day for nearly 50 years. Does not abuse alcohol or drugs. She is currently a resident of [facility]. FAMILY HISTORY: Mother at the age of 92 years. She has had history of carotid endarterectomy, COPD, and was a smoker as well. Father when he was very young. Code status is full. Power of civil rights attorney, has 3 children. She has 2 daughters and 1 son. REVIEW OF SYSTEMS: Cannot be obtained as the patient is very lethargic at present. PHYSICAL EXAMINATION: GENERAL: The patient is an 87-year-old female, who is currently very lethargic. VITAL SIGNS: Blood pressure on arrival was 80/60, currently 110/60; pulse 100 per minute; respiratory rate 16 per minute; temperature 97.3 degrees, rectal; and saturating 100% on 2 L nasal cannula and 87% on room air. NECK: Supple. No elevated JVD. EYES: Extraocular muscles intact. Pupils are reacting to light. Oral cavity, mucous membranes are dry. No exudates or congestion. CARDIOVASCULAR SYSTEM: S1 and S2 heard. Regular rhythm. RESPIRATORY SYSTEM: Air entry 1+ bilateral. Scattered wheezes plus bilateral. ABDOMEN: Soft. Bowel sounds heard. No tenderness, rigidity, or guarding. EXTREMITIES: No peripheral edema or calf tenderness. VASCULAR SYSTEM: Peripheral pulses 1+ bilateral. No ischemic ulcerations or gangrene. CENTRAL NERVOUS SYSTEM: No gross focal deficits noted. The patient moves all extremities. : She has stage IV sacral decubitus. The floor of the ulcer looks clean. PSYCHIATRIC SYSTEM: Cannot be assessed due to the patient's severe lethargy at present. LABORATORY DATA: EKG done shows sinus tach at 103 beats per minute. White count of 16, Hb of 12, platelet count 374, with 86% neutrophils. MCV is 105. Serum bicarb 22, BUN 65, creatinine 4.3, serum glucose 88. BNP 253. Liver enzymes are within normal limits. Albumin is 3.1. Troponin I 0.13, CK-MB 2.2. UA shows large leukocyte esterase, greater than 50 wbc's, and 4+ bacteria. Chest x-ray done is suspicious for right lower lobe pneumonia. CLINICAL IMPRESSION AND PLAN: The patient will be admitted to [facility] for sepsis with initial shock resolving after 2 L of IV fluids. If needed, she will be placed on Levophed. The patient has a right internal jugular central line. Blood and urine cultures have been obtained in the ER. We will obtain respiratory culture if she can provide one. She will be on broad-spectrum antibiotics, which she will be rapidly tapered based on cultures and clinical response. She will be on DuoNeb q.6 hourly and a small dose of steroids to help her due to severe sepsis and chronic obstructive pulmonary disease exacerbation. She has received 2 L of IV fluids and the patient has known history of diastolic dysfunction with recent volume overload and hospitalization with the patient being on ventilator for the same in the month of March. In view of this, she will be cautiously hydrated. For now, she will be on 150 mL of normal saline per hour. The patient has acute kidney injury and I have discussed with Dr. Lange and will be watching her closely as well. The patient's overall prognosis is guarded and I have discussed this with the patient's daughter, who is here at bedside. She is currently a full code. I have asked the 3 children to discuss among themselves and let us know about the code status. Please note, I have also discussed with Dr. Saldana, who was on-call for Pulmonary Critical Care, who will be seeing the patient. Job ID: [id number] [facility]
--- NOTE | 2018-08-01 22:08 | CON ---
DATE OF CONSULTATION: 08/01/2018 The consultation encompassed 70 minutes of time; of that time, greater than 50% was spent with the patient and/or in the patient's unit in the hospital. I spent a significant amount of time speaking with the patient's youngest daughter who was at the bedside. HISTORY OF PRESENT ILLNESS: This is an 87-year-old female who has been admitted from the longterm with a urinary tract infection and pneumonia. She had a low blood pressure on initial presentation, but that is corrected with fluids. The ER doctor has inserted a central line into the right IJ area for the purpose of administrating vasopressors, but none was needed until this point. This patient has done poorly over the last 4 to 5 months. She lives in a longterm in [place]. Apparently, she is still full code, although that is somewhat in question. My partner, Dr. Gutierrez has seen her on couple of occasions in the past. I have also seen her on one occasion in the past. PAST MEDICAL HISTORY: 1. Hypertension. 2. Atrial fibrillation. 3. Previous respiratory failure requiring endotracheal intubation. 4. . 5. Mild cognitive impairment. 6. Left hip fracture. 7. Cardiac ablation for supraventricular tachycardia. 8. COPD. 9. Metabolic encephalopathy. 10. Acute right ventricular heart strain in the past. ALLERGIES: CODEINE, MACROBID, PENICILLIN, SULFA. SOCIAL HISTORY: Smoked in the distant past. Does not consume alcohol. She is originally from [place], but lived in [place] for the last 40 years or so. MEDICATIONS: Prior to admission, this is not available for review at this time. REVIEW OF SYSTEMS: Cannot be obtained as the patient is somewhat obtunded. PHYSICAL EXAMINATION: VITAL SIGNS: Heart rate was running in the 70s to 90s. Blood pressure 113/75, O2 saturation in the mid 90s on 2 L nasal cannula, respiratory rate 20. GENERAL: She is sleeping, does not appear to be in any distress. HEENT: Remarkable for mild bitemporal wasting. She has no oropharyngeal lesions that are noted. NECK: Has a right IJ central line in place. CARDIAC: S1 and S2, regular without audible murmur. LUNGS: She has some crackles in the right lower lobe. ABDOMEN: Soft, nontender. She has a Sunshine catheter in place with very turbid urine. EXTREMITIES: No clubbing, cyanosis, or edema. LABORATORY DATA: White blood cell count of 16, hematocrit 42, platelet count 374. Sodium 138, potassium 5, chloride 96, CO2 of 22, BUN 65, creatinine 4.3, glucose 88. Troponin 0.13. BNP 253. IMAGING STUDIES: Chest x-ray shows a right lower lobe infiltrate. ASSESSMENT: 1. Right lower lobe pneumonia. 2. Urosepsis. 3. Advanced age. 4. Multitude of medical problems listed above. PLAN: I discussed with Dr. Araujo. The patient is being admitted to the [facility] for the purpose of administering IV fluids, broad-spectrum IV antibiotics with hospital-acquired coverage, and close cardiopulmonary monitoring. At the current time, she is a full code, although I spent a great deal of time talking to the daughter about this and I have strongly discouraged aggressive resuscitative measures given the patient's poor quality of life. The patient has been started on empiric steroids for hypotension. I am not sure about her steroid use in the past, but it probably would not hurt to keep her on steroids for the time being. Our group will be happy to follow with you. Job ID: [id number]
[2018-08-01] MEDS: Sodium Chloride 0.9% 1,000 ML IV SCH ×2 (23:40)
[2018-08-01] MEDS: Famotidine 20 MG TAB PO SCH (23:41)
[2018-08-02] MEDS ORDERED: Vancomycin HCl 1 GM in Premix Bag 1 BAG IVPB PRN (01:09)
[2018-08-02] MEDS ORDERED: Vancomycin HCl 500 MG in Sodium Chloride 0.9% 100 ML IVPB PRN (01:22)
[2018-08-02] MEDS ORDERED: Vancomycin HCl 750 MG in Sodium Chloride 0.9% 250 ML 250 ML IVPB PRN (01:22)
[2018-08-02] MEDS ORDERED: HOLD VANCOMYCIN FOR LEVEL >20 FS PRN (01:23)
[2018-08-02] MEDS ORDERED: Vancomycin HCl 250 MG in Sodium Chloride 0.9% 100 ML IVPB PRN (01:23)
[2018-08-02 05:35] LABS: #Basophils 0.1 thou/uL (0.0-0.2); #Lymphocytes 0.3 thou/uL (1.20-3.40); #Monocytes 0.2 thou/uL (0.11-0.59); #Neutrophils 10.1 thou/uL (1.40-6.50); %Basophils 0.6 % (0.0-1.0); %Eosinophils 0.2 % (0.0-10.0); %Lymphocytes 2.9 % (21.0-51.0); %Monocytes 1.7 % (0.0-10.0); %Neutrophils 94.5 % (42.0-75.0); Hemoglobin 9.8 g/dL (12.0-16.0); Mean Corpuscular HGB CONC 30.5 g/dL (32.0-36.0); Mean Corpuscular Hemoglobin 31.5 pg (27.0-31.0); Mean Platelet Volume 6.4 fL (7.4-10.4); Platelet Count 345 thou/uL (130-400); RBC Distribution Width 13.4 % (11.5-14.5); Red Blood Cell (RBC) Count 3.12 mill/uL (4.20-5.40); White Blood Cell (WBC) Count 10.7 thou/uL (4.8-10.8)
[2018-08-02 05:39] LABS: Anion Gap 15 mmol/L (10-20); BUN (Urea Nitrogen) 67 mg/dL (9.8-20.1); Calc. Creatinine Clearance 7 mL/min (70-130); Calcium 8.1 mg/dL (7.8-10.44); Carbon Dioxide 25 mmol/L (23-31); Chloride 105 mmol/L (98-107); Estimated GFR-MDRD 11; Glucose 92 mg/dL (83-110); Potassium 4.8 mmol/L (3.5-5.1); Sodium 140 mmol/L (136-145)
[2018-08-02] MEDS: Sodium Chloride 0.9% 1,000 ML IV SCH ×2 (06:24→11:43)
[2018-08-02] MEDS: Enoxaparin Sodium 30 MG/0.3 ML SYRINGE SC SCH (09:04)
--- NOTE | 2018-08-02 12:30 | PDOC.PN ---
- Subjective Encounter Start Date: 08/02/18 Encounter Start Time: 08:00 Subjective: awake, not fully oriented -: no sob or chest pain -: is trying to feed - Objective Resuscitation Status - Order Detail: 08/01/18 16:41 Resuscitation Status Routine Resuscitation Status: FULL: Full Resuscitation MAR Reviewed: Yes Vital Signs & Weight: Vital Signs (12 hours) Temp Pulse Resp Pulse Ox 08/02/18 08:00 97.5 F L 94 L 08/02/18 07:31 99 08/02/18 07:29 89 20 99 08/02/18 04:00 97.6 F 08/02/18 02:29 73 16 99 Weight Admit Weight 94 lb 12.78 oz Weight 94 lb 12.78 oz Most Recent Monitor Data Heart Rate from ECG 91 NIBP 122/58 NIBP BP-Mean 79 Respiration from ECG 23 SpO2 95 I&O: 08/01/18 08/02/18 08/03/18 06:59 06:59 06:59 Intake Total 1035.2 Output Total 280 135 Balance 755.2 -135 Result Diagrams: 08/02/18 04:15 08/02/18 04:15 Phys Exam - Physical Examination HEENT: PERRLA, sclera anicteric Neck: no JVD, supple Respiratory: no wheezing, no rales Cardiovascular: RRR, no significant murmur Gastrointestinal: soft, no distention, positive bowel sounds Musculoskeletal: no edema, pulses present Neurological: non-focal, moves all 4 limbs Dx/Plan (1) NAVARRO (acute kidney injury) Code(s): N17.9 - ACUTE KIDNEY FAILURE, UNSPECIFIED Status: Acute (2) Septic shock Code(s): A41.9 - SEPSIS, UNSPECIFIED ORGANISM; R65.21 - SEVERE SEPSIS WITH SEPTIC SHOCK Status: Acute Comment: resolving (3) UTI (urinary tract infection) Status: Acute Qualifiers: Urinary tract infection type: acute cystitis Hematuria presence: with hematuria Qualified Code(s): N30.01 - Acute cystitis with hematuria Comment: cont. current management. No culture growth. (4) PNA (pneumonia) Code(s): J18.9 - PNEUMONIA, UNSPECIFIED ORGANISM Status: Acute Qualifiers: Pneumonia type: due to unspecified organism (5) Sacral decubitus ulcer, stage IV Code(s): L89.154 - PRESSURE ULCER OF SACRAL REGION, STAGE 4 Status: Chronic Comment: POA (6) Acute encephalopathy Code(s): G93.40 - ENCEPHALOPATHY, UNSPECIFIED Status: Acute Comment: Now improved. (7) COPD exacerbation Code(s): J44.1 - CHRONIC OBSTRUCTIVE PULMONARY DISEASE W (ACUTE) EXACERBATION Status: Acute (8) Chronic anemia Code(s): D64.9 - ANEMIA, UNSPECIFIED Status: Chronic - Plan is on cefepime, levaq and vanc -: gentle iv hydration, watch for overload -: renal function stable, creatinine around 3.8 -: is off pressors this am, encourage oral intake, full liq diet as tolerated -: prognosis guarded, may dc steroids in am * . Review of Systems - Medications/Allergies Allergies/Adverse Reactions: Allergies Allergy/AdvReac Type Severity Reaction Status Date / Time codeine Allergy Verified 08/01/18 22:38 metronidazole [From Flagyl] Allergy Verified 08/01/18 22:38 morphine Allergy Verified 08/01/18 22:38 nitrofurantoin Allergy Verified 08/01/18 22:38 [From Macrobid] penicillin Allergy Verified 08/01/18 22:38 Sulfa (Sulfonamide AdvReac Intermediate Verified 08/01/18 22:38 Antibiotics) Medications: Current Medications Acetaminophen (Tylenol) 650 mg PO Q4H PRN PRN Reason: Headache/Fever/Mild Pain (1-3) Acetaminophen (Tylenol) 650 mg [place] Q4H PRN PRN Reason: Headache/Fever/Mild Pain (1-3) Albuterol/Ipratropium (Duoneb) 3 ml NEB [id number] [facility] Last Admin: 08/02/18 07:29 Dose: 3 ml Enoxaparin Sodium (Lovenox) 30 mg SC 0900 [facility] Last Admin: 08/02/18 09:04 Dose: 30 mg Famotidine (Pepcid) 20 mg PO QPM [facility] Last Admin: 08/01/18 23:41 Dose: Not Given Guaifenesin/Dextromethorphan (Robitussin Dm) 15 ml PO Q4H PRN PRN Reason: Cough Cefepime HCl 1 gm/ Sodium (Chloride) 100 mls @ 200 mls/hr IVPB 1600 [facility] Levofloxacin 250 mg/ Device 50 mls @ 100 mls/hr IVPB 1600 [facility] Norepinephrine Bitartrate (Levophed) 250 mls @ 0 mls/hr IVPB INF PRN; Protocol PRN Reason: sbp<90 Sodium Chloride (Normal Saline 0.9%) 1,000 mls @ 150 mls/hr IV .Q6H40M [facility] Last Admin: 08/02/18 11:43 Dose: 1,000 mls Potassium Chloride 40 meq/ (Sodium Chloride) 270 mls @ 135 mls/hr IVPB ASDIR PRN PRN Reason: FOR SERUM K+ 2.5 - 3.5 Potassium Chloride 40 meq/ (Device) 100 mls @ 50 mls/hr IVPB ASDIR PRN PRN Reason: FOR SERUM K+ 2.5 - 3.5 Magnesium Sulfate 1 gm/ Sodium (Chloride) 102 mls @ 102 mls/hr IV PRN PRN PRN Reason: MAG LEVEL 1.4 - 2.0 Magnesium Sulfate 2 gm/ Device 100 mls @ 100 mls/hr IVPB ASDIR PRN PRN Reason: MAGNESIUM < 1.4 Potassium Phosphate 9 mmol/ (Sodium Chloride) 103 mls @ 25.75 mls/hr IVPB ASDIR PRN PRN Reason: Phosphate 1.0-1.8 Potassium Phosphate 12 mmol/ (Sodium Chloride) 254 mls @ 63.5 mls/hr IV ASDIR PRN PRN Reason: Serum phosphate 0.5-0.9 Potassium Phosphate 15 mmol/ (Sodium Chloride) 255 mls @ 63.75 mls/hr IV ASDIR PRN PRN Reason: Serum Phos < 0.5 Vancomycin HCl 1 gm/ Device 200 mls @ 200 mls/hr IVPB WILLCALL PRN PRN Reason: IF VANC LEVEL <= 5; Vancomycin HCl 750 mg/ Sodium (Chloride) 250 mls @ 250 mls/hr IVPB WILLCALL PRN PRN Reason: IF VANC LEVEL > 5 AND <= 10 Vancomycin HCl 500 mg/ Sodium (Chloride) 100 mls @ 100 mls/hr IVPB WILLCALL PRN PRN Reason: IF VANC LEVEL >10 AND <=15 Vancomycin HCl 250 mg/ Sodium (Chloride) 100 mls @ 100 mls/hr IVPB WILLCALL PRN PRN Reason: IF VANC LEVEL >15 AND <=20 Magnesium Oxide (Magnesium Oxide) 400 mg PO BIDPRN PRN PRN Reason: FOR SERUM MAG 1.4 - 2.0 Magnesium Oxide (Magnesium Oxide) 800 mg PO PRN PRN PRN Reason: FOR SERUM MAG < 1.4 Methylprednisolone Sodium Succinate (Solu-Medrol) 20 mg IVP Q8HR [facility] Last Admin: 08/02/18 06:24 Dose: 20 mg Miscellaneous Medication (Phos-Nak) 1 pkt PO TIDPRN PRN PRN Reason: FOR PHOS LEVEL 1.0 - 1.8 Miscellaneous Medication (Phos-Nak) 2 pkt PO TIDPRN PRN PRN Reason: FOR PHOS LEVEL 0.5 - 1.0 Miscellaneous Medication (Pharmacy To Dose) 0 each IVPB PRN PRN PRN Reason: VANC PHARMACY TO DOSE Ccu Electrolyte (Replacement Protocol) 0 each FS PRN PRN PRN Reason: FOR ELECTROLYTE REPLACEMENT Hold Vancomycin For (Level >20) 0 each FS WILLCALL PRN PRN Reason: HOLD VANCOMYCIN FOR LEVEL >20 Ondansetron HCl (Zofran) 4 mg IVP Q6H PRN PRN Reason: Nausea/Vomiting Pneumococcal 13-Valent Conj Vacc (Prevnar) 0.5 ml IM .ONCE ONE Stop: 08/03/18 09:01 Potassium Chloride (K-Dur) 40 meq PO ASDIR PRN PRN Reason: FOR SERUM K+ 2.5 - 3.5 Potassium Chloride (Klor-Con) 40 meq PER TUBE ASDIR PRN PRN Reason: FOR SERUM K+ 2.5-3.5
[2018-08-02] MEDS: Sodium Chloride 0.45% 1,000 ML IV SCH ×2 (13:31→19:37)
--- NOTE | 2018-08-02 13:35 | PRG ---
DATE OF SERVICE: 08/02/2018 SERVICE: Pulmonary Medicine. INTERVAL HISTORY: The patient is doing okay from respiratory standpoint. She has been off the Levophed for over 6 hours now. She denies any current fevers, chills, nausea, or vomiting. She is coughing. Nursing reports no significant overnight events otherwise. OBJECTIVE: VITAL SIGNS: Afebrile, pulse 91, blood pressure 122/58, respirations 23, and saturation 95% on 2 L nasal cannula. GENERAL: The patient is awake and alert, in no apparent distress. LUNGS: Decent air entry. There is no prolonged expiratory phase or wheezing appreciated. HEART: Normal rate. Regular. ABDOMEN: Soft, nontender, and nondistended. Bowel sounds are positive. MUSCULOSKELETAL: No cyanosis or clubbing. There is no pitting in the bilateral lower extremities. NEUROLOGIC: Grossly nonfocal. LABORATORY DATA: WBC 10.7, hemoglobin 9.8, and platelets 345,000. Creatinine 3.89 and downtrending. Basic metabolic profile is otherwise unremarkable. Troponin 0.124 and downtrending. Random cortisol is 11.1. Lactate is unremarkable. Urine culture is growing a gram-negative nalini. Blood cultures remain negative to date. IMAGING DATA: Chest x-ray demonstrates right lower lobe infiltrate. Right IJ central venous catheter is in good position. ASSESSMENT: 1. Acute hypoxic respiratory failure. 2. Community-acquired pneumonia in the right lower lobe. 3. Urinary tract infection, likely secondary to Escherichia coli. 4. Septic shock, resolving. 5. Acute kidney injury, improving. 6. Stage IV decubitus ulcer, present on admission. 7. Advanced debility and deconditioning. DISCUSSION AND PLAN: We will continue our supportive care moving forward. Agree with palliative care consultation. These discussions are going to need to be continued through time. I will discontinue the steroids and cough suppressants. From my perspective, she is stable for transition out of the ICU to the medical unit. Pulmonary Critical Care will continue to follow along however. Job ID: [id number]
[2018-08-02] MEDS: Cefepime 1 GM in Sodium Chloride 0.9% 100 ML IVPB SCH (15:31)
--- NOTE | 2018-08-02 16:03 | PRG ---
DATE OF SERVICE: 08/02/2018 SUBJECTIVE: The patient is seen and examined, seems to be doing much better, coming off pressors, noted with the following vital signs. OBJECTIVE: VITAL SIGNS: Afebrile, blood pressure 122/58, pulse of 91, respiratory rate of 20, and O2 saturation of 95%. HEENT: Unremarkable. CARDIOVASCULAR: First and second heart sounds were heard. RESPIRATORY: Clear to auscultation. DIGESTIVE: Revealed a benign abdominal with positive bowel sounds. EXTREMITIES: No peripheral edema. SKIN: No new gross rash. LYMPHATICS: No peripheral lymphadenopathy. LABORATORY INVESTIGATIONS: Significant for creatinine that is down to 3.8. IMPRESSION: 1. Acute on chronic kidney disease, which seems to be improving. 2. Sepsis in the context of pneumonia and urinary tract infection, seems to be responding to treatment. PLAN: 1. We will continue current renal supportive measures. 2. Renally dose all medications and avoid potentially nephrotoxic agents. 3. Further management will be dependent on the clinical course. Job ID: [id number]
[2018-08-02] MEDS: Ondansetron PF 4 MG/2 ML Vial IVP PRN (18:19)
[2018-08-02] MEDS: Mirtazapine 15 MG TAB PO SCH (19:37)
[2018-08-02] MEDS: Famotidine 20 MG TAB PO SCH (19:38)
[2018-08-02 21:15] LABS: Vancomycin, Random 14.1 ug/mL (See Comment)
[2018-08-03 04:56] LABS: #Lymphocytes 0.7 thou/uL (1.20-3.40); #Monocytes 0.9 thou/uL (0.11-0.59); #Neutrophils 9.9 thou/uL (1.40-6.50); %Basophils 0.1 % (0.0-1.0); %Eosinophils 0.1 % (0.0-10.0); %Lymphocytes 6.3 % (21.0-51.0); %Monocytes 7.9 % (0.0-10.0); %Neutrophils 85.6 % (42.0-75.0); Hemoglobin 9.5 g/dL (12.0-16.0); Mean Corpuscular HGB CONC 32.3 g/dL (32.0-36.0); Mean Corpuscular Hemoglobin 33.2 pg (27.0-31.0); Mean Platelet Volume 6.5 fL (7.4-10.4); Platelet Count 306 thou/uL (130-400); RBC Distribution Width 13.5 % (11.5-14.5); Red Blood Cell (RBC) Count 2.85 mill/uL (4.20-5.40); White Blood Cell (WBC) Count 11.5 thou/uL (4.8-10.8)
[2018-08-03 05:09] LABS: Anion Gap 12 mmol/L (10-20); BUN (Urea Nitrogen) 65 mg/dL (9.8-20.1); Calc. Creatinine Clearance 8 mL/min (70-130); Calcium 7.8 mg/dL (7.8-10.44); Carbon Dioxide 22 mmol/L (23-31); Chloride 107 mmol/L (98-107); Estimated GFR-MDRD 12; Glucose 89 mg/dL (83-110); Magnesium 1.1 mg/dL (1.6-2.6); Phosphorus 3.7 mg/dL (2.3-4.7); Potassium 4.1 mmol/L (3.5-5.1); Sodium 137 mmol/L (136-145)
[2018-08-03] MEDS: Sodium Chloride 0.45% 1,000 ML IV SCH (07:24)
[2018-08-03] MEDS ORDERED: Sodium Chloride 0.45% 1,000 ML IV SCH (08:00)
[2018-08-03] MEDS ORDERED: Prevnar 13-Val Conj/PF 0.5 ML SYRINGE IM ONE (09:00)
[2018-08-03] MEDS: Enoxaparin Sodium 30 MG/0.3 ML SYRINGE SC SCH (09:03)
[2018-08-03] MEDS: Ezetimibe 10 MG TAB PO SCH (09:03)
[2018-08-03] MEDS: Cyanocobalamin (Vitamin B-12) 1,000 MCG TAB PO SCH (09:03)
[2018-08-03] MEDS: Cefepime 1 GM in Sodium Chloride 0.9% 100 ML IVPB SCH (16:02)
--- NOTE | 2018-08-03 16:31 | PDOC.PN ---
- Subjective Encounter Start Date: 08/03/18 Encounter Start Time: 09:15 Subjective: awake, follows simple verbal stimuli on repeated attempts -: no sob although she has not been able to bring up sputum - Objective Resuscitation Status - Order Detail: 08/01/18 16:41 Resuscitation Status Routine Resuscitation Status: FULL: Full Resuscitation MAR Reviewed: Yes Vital Signs & Weight: Vital Signs (12 hours) Temp Pulse Resp BP Pulse Ox 08/03/18 12:00 97.7 F 117 H 20 134/61 100 08/03/18 10:52 83 18 100 08/03/18 09:00 100 08/03/18 07:35 97.4 F L 92 18 120/71 100 Weight Admit Weight 94 lb 11.2 oz Weight 101 lb Most Recent Monitor Data Heart Rate from ECG 89 NIBP 111/61 NIBP BP-Mean 77 Respiration from ECG 25 SpO2 95 I&O: 08/02/18 08/03/18 08/04/18 06:59 06:59 06:59 Intake Total 1035.2 1701 Output Total 280 240 Balance 755.2 1461 Result Diagrams: 08/03/18 04:19 08/03/18 04:19 Phys Exam - Physical Examination HEENT: PERRLA, sclera anicteric Neck: no JVD, supple Respiratory: no wheezing rhonchi++ Cardiovascular: RRR, no significant murmur Gastrointestinal: soft, no distention, positive bowel sounds Musculoskeletal: no edema, pulses present Neurological: non-focal, moves all 4 limbs Dx/Plan (1) NAVARRO (acute kidney injury) Code(s): N17.9 - ACUTE KIDNEY FAILURE, UNSPECIFIED Status: Acute (2) Septic shock Code(s): A41.9 - SEPSIS, UNSPECIFIED ORGANISM; R65.21 - SEVERE SEPSIS WITH SEPTIC SHOCK Status: Resolved (3) UTI (urinary tract infection) Status: Acute Qualifiers: Urinary tract infection type: acute cystitis Hematuria presence: with hematuria Qualified Code(s): N30.01 - Acute cystitis with hematuria (4) PNA (pneumonia) Code(s): J18.9 - PNEUMONIA, UNSPECIFIED ORGANISM Status: Acute Qualifiers: Pneumonia type: due to unspecified organism (5) Sacral decubitus ulcer, stage IV Code(s): L89.154 - PRESSURE ULCER OF SACRAL REGION, STAGE 4 Status: Chronic Comment: POA (6) Acute encephalopathy Code(s): G93.40 - ENCEPHALOPATHY, UNSPECIFIED Status: Acute Comment: Now improved. (7) COPD exacerbation Code(s): J44.1 - CHRONIC OBSTRUCTIVE PULMONARY DISEASE W (ACUTE) EXACERBATION Status: Acute (8) Chronic anemia Code(s): D64.9 - ANEMIA, UNSPECIFIED Status: Chronic (9) Dementia Code(s): F03.90 - UNSPECIFIED DEMENTIA WITHOUT BEHAVIORAL DISTURBANCE Status: Chronic Qualifiers: Dementia type: unspecified type Dementia behavioral disturbance: without behavioral disturbance Qualified Code(s): F03.90 - Unspecified dementia without behavioral disturbance - Plan pt has multiple medical issues, very poor functional status, current infect -: stage 4 decubitus, advanced age likely underlying dementia. -: Has very poor effort to even bring up sputum with pna -: d/w daughter about low spo2 and guidance towards code status, she cant talk -: about it as she is in office and she has not contacted her brother or siste * . -r so far about goals of care and code status. I have given complete updates to in person on admission and over phone today. She will try to talk to her siblings may be this eveving or am when she can to address above issues. She is aware of possible worsoning in her resp status and likely intubation if her spo2 drops or she gets symptomatic. I have discussed her findings with palliative care, might have to involve ethics committee given the facts mentioned above. continue cefepime for now based on cultures. Blood cs x2 is -ve. dc iv fluids due to low spo2 and diastolic dysfunction encourage oral intake as tolerated. Review of Systems - Medications/Allergies Allergies/Adverse Reactions: Allergies Allergy/AdvReac Type Severity Reaction Status Date / Time codeine Allergy Verified 08/01/18 22:38 metronidazole [From Flagyl] Allergy Verified 08/01/18 22:38 morphine Allergy Verified 08/01/18 22:38 nitrofurantoin Allergy Verified 08/01/18 22:38 [From Macrobid] penicillin Allergy Verified 08/01/18 22:38 Sulfa (Sulfonamide AdvReac Intermediate Verified 08/01/18 22:38 Antibiotics) Medications: Current Medications Acetaminophen (Tylenol) 650 mg PO Q4H PRN PRN Reason: Headache/Fever/Mild Pain (1-3) Acetaminophen (Tylenol) 650 mg [place] Q4H PRN PRN Reason: Headache/Fever/Mild Pain (1-3) Albuterol/Ipratropium (Duoneb) 3 ml NEB [id number] [facility] Last Admin: 08/03/18 10:52 Dose: 3 ml Cyanocobalamin (Vitamin B-12) 2,000 mcg PO DAILY [facility] Last Admin: 08/03/18 09:03 Dose: 2,000 mcg Ezetimibe (Zetia) 10 mg PO DAILY [facility] Last Admin: 08/03/18 09:03 Dose: 10 mg Enoxaparin Sodium (Lovenox) 30 mg SC 0900 [facility] Last Admin: 08/03/18 09:03 Dose: 30 mg Famotidine (Pepcid) 20 mg PO QPM [facility] Last Admin: 08/02/18 19:38 Dose: 20 mg Cefepime HCl 1 gm/ Sodium (Chloride) 100 mls @ 200 mls/hr IVPB 1600 [facility] Last Admin: 08/03/18 16:02 Dose: 100 mls Magnesium Sulfate 4 gm/ Sodium (Chloride) 258 mls @ 86 mls/hr IVPB NOW [facility] Stop: 08/03/18 19:44 Mirtazapine (Remeron) 7.5 mg PO HS [facility] Last Admin: 08/02/18 19:37 Dose: 7.5 mg Miscellaneous Medication (Pharmacy To Dose) 0 each IVPB PRN PRN PRN Reason: VANC PHARMACY TO DOSE Ccu Electrolyte (Replacement Protocol) 0 each FS PRN PRN PRN Reason: FOR ELECTROLYTE REPLACEMENT Hold Vancomycin For (Level >20) 0 each FS WILLCALL PRN PRN Reason: HOLD VANCOMYCIN FOR LEVEL >20 Ondansetron HCl (Zofran) 4 mg IVP Q6H PRN PRN Reason: Nausea/Vomiting Last Admin: 08/02/18 18:19 Dose: 4 mg
[2018-08-03] MEDS ORDERED: Magnesium Sulfate 4 GM in Sodium Chloride 0.9% 250 ML 250 ML IVPB SCH (16:45)
--- NOTE | 2018-08-03 16:46 | PRG ---
DATE OF SERVICE: 08/03/2018 SERVICE: Pulmonary Medicine. INTERVAL HISTORY: The patient is doing okay from respiratory standpoint. She is breathing comfortably on room air. She has no complaints of fevers, chills, nausea, or vomiting. She is breathing comfortably. She is yet to work with physical therapy. PHYSICAL EXAMINATION: VITAL SIGNS: Afebrile. Pulse 117, blood pressure 134/61, respirations 20, saturation 100% on 2 L nasal cannula. GENERAL: The patient is awake, alert, in no apparent distress. LUNGS: Excellent air entry. Dependent crackles are minimal. No rhonchi. No wheezing. HEART: Normal rate, regular. ABDOMEN: Soft, nontender, and nondistended. Bowel sounds are positive. MUSCULOSKELETAL: No cyanosis or clubbing. There is no pitting in the bilateral lower extremities. NEUROLOGIC: Grossly nonfocal. LABORATORY DATA: Urine culture is growing Proteus mirabilis, which is a fairly sensitive organism. It is resistant to fluoroquinolones, nitrofurantoin, and ampicillin. Blood cultures x2 are unremarkable. ASSESSMENT: 1. Acute hypoxic respiratory failure, resolved. 2. Community-acquired pneumonia in the right lower lobe. 3. Urinary tract infection secondary to Proteus mirabilis. 4. Septic shock, resolved. 5. Acute kidney injury, slowly improving. 6. Stage IV decubitus ulcer, present on admission. 7. Advanced debility with deconditioning. DISCUSSION AND PLAN: We will continue our supportive care including antibiotics and nebulized medication. The end-organ damage continues to clear. At this point, she has no further requirements for inpatient Pulmonary or Critical Care opinion. Ultimately, when she leaves the hospital, she needs a repeat chest x-ray in 4 to 6 weeks to verify the small right lower lobe infiltrate has gone away. Job ID: [id number]
--- NOTE | 2018-08-03 19:12 | PRG ---
DATE OF SERVICE: 08/03/2018 SUBJECTIVE: The patient is seen and examined, seems to be doing much better, noted with the following vital signs. OBJECTIVE: VITAL SIGNS: Afebrile, temperature 97.7, pulse 96, respiratory rate of 20, O2 saturation of 100%, and blood pressure 134/61. HEENT: Examination unremarkable. CARDIOVASCULAR SYSTEM: First and second heart sounds were heard. RESPIRATORY SYSTEM: Clear to auscultation. DIGESTIVE SYSTEM: Revealed a benign abdomen with positive bowel sounds. EXTREMITIES: No peripheral edema. SKIN: No new gross rash. LYMPHATICS: No peripheral lymphadenopathy. LABORATORY INVESTIGATION: Showed a hemoglobin of 9.5. Chemistry showed a creatinine of 3.52 with BUN of 65. IMPRESSION: 1. Acute on chronic kidney disease, which seems to be improving. 2. Sepsis of urinary source from Proteus mirabilis. PLAN: 1. We will continue current renal supportive measures. 2. Further management will be dependent on the clinical course. Job ID: [id number]
[2018-08-03] MEDS: Famotidine 20 MG TAB PO SCH (20:03)
[2018-08-03] MEDS: Mirtazapine 15 MG TAB PO SCH (20:04)
[2018-08-04 05:13] LABS: #Lymphocytes 0.7 thou/uL (1.20-3.40); #Monocytes 0.9 thou/uL (0.11-0.59); #Neutrophils 8.2 thou/uL (1.40-6.50); %Basophils 0.1 % (0.0-1.0); %Eosinophils 0.2 % (0.0-10.0); %Lymphocytes 6.7 % (21.0-51.0); %Monocytes 8.8 % (0.0-10.0); %Neutrophils 84.2 % (42.0-75.0); Hemoglobin 9.7 g/dL (12.0-16.0); Mean Corpuscular HGB CONC 31.5 g/dL (32.0-36.0); Mean Corpuscular Hemoglobin 32.1 pg (27.0-31.0); Mean Platelet Volume 6.5 fL (7.4-10.4); Platelet Count 280 thou/uL (130-400); RBC Distribution Width 13.6 % (11.5-14.5); Red Blood Cell (RBC) Count 3.02 mill/uL (4.20-5.40); White Blood Cell (WBC) Count 9.7 thou/uL (4.8-10.8)
[2018-08-04 05:22] LABS: Anion Gap 11 mmol/L (10-20); BUN (Urea Nitrogen) 58 mg/dL (9.8-20.1); Calc. Creatinine Clearance 9 mL/min (70-130); Carbon Dioxide 22 mmol/L (23-31); Chloride 110 mmol/L (98-107); Estimated GFR-MDRD 13; Glucose 99 mg/dL (83-110); Potassium 4.1 mmol/L (3.5-5.1); Sodium 139 mmol/L (136-145)
[2018-08-04] MEDS: Cyanocobalamin (Vitamin B-12) 1,000 MCG TAB PO SCH (08:19)
[2018-08-04] MEDS: Enoxaparin Sodium 30 MG/0.3 ML SYRINGE SC SCH (08:19)
[2018-08-04] MEDS: Ezetimibe 10 MG TAB PO SCH (08:19)
--- NOTE | 2018-08-04 11:45 | PDOC.PN ---
- Subjective Encounter Start Date: 08/04/18 Encounter Start Time: 10:00 Subjective: lethargic, awakens easily, no sob -: responds to simple verbal stimuli - Objective Resuscitation Status - Order Detail: 08/01/18 16:41 Resuscitation Status Routine Resuscitation Status: FULL: Full Resuscitation MAR Reviewed: Yes Vital Signs & Weight: Vital Signs (12 hours) Temp Pulse Resp BP Pulse Ox 08/04/18 11:08 97.7 F 98 20 151/73 H 92 L 08/04/18 08:46 100 08/04/18 08:00 97.7 F 98 20 120/49 L 100 08/04/18 07:13 96 16 93 L 08/04/18 04:05 97.8 F 87 18 131/61 97 08/04/18 01:20 109 H 18 96 Weight Admit Weight 94 lb 11.2 oz Weight 99 lb 5 oz Most Recent Monitor Data Heart Rate from ECG 89 NIBP 111/61 NIBP BP-Mean 77 Respiration from ECG 25 SpO2 95 I&O: 08/03/18 08/04/18 08/05/18 06:59 06:59 06:59 Intake Total 1701 660 Output Total 240 800 Balance 1461 -140 Result Diagrams: 08/04/18 04:39 08/04/18 04:39 Phys Exam - Physical Examination HEENT: PERRLA, sclera anicteric Neck: no JVD, supple Respiratory: no wheezing, no rales Cardiovascular: RRR, no significant murmur Gastrointestinal: soft, non-tender, positive bowel sounds Musculoskeletal: no edema, pulses present Neurological: non-focal, moves all 4 limbs Dx/Plan (1) NAVARRO (acute kidney injury) Code(s): N17.9 - ACUTE KIDNEY FAILURE, UNSPECIFIED Status: Acute (2) Septic shock Code(s): A41.9 - SEPSIS, UNSPECIFIED ORGANISM; R65.21 - SEVERE SEPSIS WITH SEPTIC SHOCK Status: Resolved (3) UTI (urinary tract infection) Status: Acute Qualifiers: Urinary tract infection type: acute cystitis Hematuria presence: with hematuria Qualified Code(s): N30.01 - Acute cystitis with hematuria (4) PNA (pneumonia) Code(s): J18.9 - PNEUMONIA, UNSPECIFIED ORGANISM Status: Acute Qualifiers: Pneumonia type: due to unspecified organism (5) Sacral decubitus ulcer, stage IV Code(s): L89.154 - PRESSURE ULCER OF SACRAL REGION, STAGE 4 Status: Chronic Comment: POA (6) Acute encephalopathy Code(s): G93.40 - ENCEPHALOPATHY, UNSPECIFIED Status: Resolved Comment: Now improved, likely at baseline (7) COPD exacerbation Code(s): J44.1 - CHRONIC OBSTRUCTIVE PULMONARY DISEASE W (ACUTE) EXACERBATION Status: Acute (8) Chronic anemia Code(s): D64.9 - ANEMIA, UNSPECIFIED Status: Chronic (9) Dementia Code(s): F03.90 - UNSPECIFIED DEMENTIA WITHOUT BEHAVIORAL DISTURBANCE Status: Chronic Qualifiers: Dementia type: unspecified type Dementia behavioral disturbance: without behavioral disturbance Qualified Code(s): F03.90 - Unspecified dementia without behavioral disturbance - Plan is on cefepime -: continue zetia, nebs and remeron -: wound care for decub, palliative care -: renal function is holding up, creatinine around 3, off fluids due to low sp -: -o2, overall prognosis poor, encourage po fluid and diet intake, nepro tid * . Review of Systems - Medications/Allergies Allergies/Adverse Reactions: Allergies Allergy/AdvReac Type Severity Reaction Status Date / Time codeine Allergy Verified 08/01/18 22:38 metronidazole [From Flagyl] Allergy Verified 08/01/18 22:38 morphine Allergy Verified 08/01/18 22:38 nitrofurantoin Allergy Verified 08/01/18 22:38 [From Macrobid] penicillin Allergy Verified 08/01/18 22:38 Sulfa (Sulfonamide AdvReac Intermediate Verified 08/01/18 22:38 Antibiotics) Medications: Current Medications Acetaminophen (Tylenol) 650 mg PO Q4H PRN PRN Reason: Headache/Fever/Mild Pain (1-3) Acetaminophen (Tylenol) 650 mg [place] Q4H PRN PRN Reason: Headache/Fever/Mild Pain (1-3) Albuterol/Ipratropium (Duoneb) 3 ml NEB [id number] [facility] Last Admin: 08/04/18 07:13 Dose: 3 ml Cyanocobalamin (Vitamin B-12) 2,000 mcg PO DAILY [facility] Last Admin: 08/04/18 08:19 Dose: 2,000 mcg Ezetimibe (Zetia) 10 mg PO DAILY [facility] Last Admin: 08/04/18 08:19 Dose: 10 mg Enoxaparin Sodium (Lovenox) 30 mg SC 0900 [facility] Last Admin: 08/04/18 08:19 Dose: 30 mg Famotidine (Pepcid) 20 mg PO QPM [facility] Last Admin: 08/03/18 20:03 Dose: 20 mg Cefepime HCl 1 gm/ Sodium (Chloride) 100 mls @ 200 mls/hr IVPB 1600 [facility] Last Admin: 08/03/18 16:02 Dose: 100 mls Mirtazapine (Remeron) 7.5 mg PO HS [facility] Last Admin: 08/03/18 20:04 Dose: 7.5 mg Ondansetron HCl (Zofran) 4 mg IVP Q6H PRN PRN Reason: Nausea/Vomiting Last Admin: 08/02/18 18:19 Dose: 4 mg
--- NOTE | 2018-08-04 13:48 | EKG ---
Test Reason : TACHYCARDIA Blood Pressure : / mmHG Vent. Rate : 103 BPM Atrial Rate : 103 BPM P-R Int : 116 ms QRS Dur : 134 ms QT Int : 380 ms P-R-T Axes : 059 090 054 degrees QTc Int : 497 ms Sinus tachycardia with Premature atrial complexes Rightward axis Non-specific intra-ventricular conduction block Abnormal ECG Confirmed by NATALIA HARTLEY [id number]), dictionary editor EILEEN SINGLETON ([id number]) on 08/04/2018 1:47:48 PM Referred By: Confirmed By:NATALIA HARTLEY
[2018-08-04] MEDS: Cefepime 1 GM in Sodium Chloride 0.9% 100 ML IVPB SCH (15:08)
[2018-08-04] MEDS: Famotidine 20 MG TAB PO SCH (20:20)
[2018-08-04] MEDS: Mirtazapine 15 MG TAB PO SCH (20:20)
--- NOTE | 2018-08-04 21:44 | PRG ---
DATE OF SERVICE: 08/04/2018 OBJECTIVE: VITAL SIGNS: The patient noted with the following vital signs; afebrile, temperature 97.8, pulse 98, respiratory rate of 20, O2 saturation 100%, and blood pressure 158/69. HEENT: Unremarkable. CARDIOVASCULAR SYSTEM: First and second heart sounds were heard. RESPIRATORY SYSTEM: Clear to auscultation. DIGESTIVE SYSTEM: Revealed a benign abdomen. EXTREMITIES: No peripheral edema. SKIN: No new gross rash. LYMPHATICS: No peripheral lymphadenopathy. LABORATORY INVESTIGATION: Showed a creatinine down to 3.31. IMPRESSION: 1. Acute on chronic kidney disease, which seems to be improving. 2. Anemia. PLAN: 1. Continue current renal supportive measures. 2. Further management to be dependent on the clinical course. Job ID: [id number]
[2018-08-05 06:57] LABS: #Lymphocytes 0.4 thou/uL (1.20-3.40); #Monocytes 0.5 thou/uL (0.11-0.59); #Neutrophils 5.9 thou/uL (1.40-6.50); %Basophils 0.2 % (0.0-1.0); %Eosinophils 0.7 % (0.0-10.0); %Lymphocytes 6.2 % (21.0-51.0); %Monocytes 7.2 % (0.0-10.0); %Neutrophils 85.8 % (42.0-75.0); Hemoglobin 9.7 g/dL (12.0-16.0); Mean Corpuscular HGB CONC 32.4 g/dL (32.0-36.0); Mean Corpuscular Hemoglobin 33.1 pg (27.0-31.0); Mean Platelet Volume 6.8 fL (7.4-10.4); Platelet Count 289 thou/uL (130-400); RBC Distribution Width 13.9 % (11.5-14.5); Red Blood Cell (RBC) Count 2.92 mill/uL (4.20-5.40); White Blood Cell (WBC) Count 6.9 thou/uL (4.8-10.8)
[2018-08-05 07:12] LABS: Anion Gap 9 mmol/L (10-20); BUN (Urea Nitrogen) 53 mg/dL (9.8-20.1); Calc. Creatinine Clearance 9 mL/min (70-130); Calcium 8.3 mg/dL (7.8-10.44); Carbon Dioxide 25 mmol/L (23-31); Chloride 108 mmol/L (98-107); Estimated GFR-MDRD 14; Glucose 85 mg/dL (83-110); Potassium 4.1 mmol/L (3.5-5.1); Sodium 138 mmol/L (136-145)
[2018-08-05] MEDS: Cyanocobalamin (Vitamin B-12) 1,000 MCG TAB PO SCH (08:29)
[2018-08-05] MEDS: Enoxaparin Sodium 30 MG/0.3 ML SYRINGE SC SCH (08:29)
[2018-08-05] MEDS: Ezetimibe 10 MG TAB PO SCH (08:29)
--- NOTE | 2018-08-05 13:07 | PDOC.PN ---
- Subjective Encounter Start Date: 08/05/18 Encounter Start Time: 09:45 Subjective: awake, follows verbal stimuli -: says she slept well last night, didn't eat much of breakfast this am -: she prefers lunch, dinner and snack before bed per patient - Objective Resuscitation Status - Order Detail: 08/01/18 16:41 Resuscitation Status Routine Resuscitation Status: FULL: Full Resuscitation MAR Reviewed: Yes Vital Signs & Weight: Vital Signs (12 hours) Temp Pulse Resp BP Pulse Ox 08/05/18 07:32 97.7 F 92 20 167/79 H 100 08/05/18 07:23 97.7 F 92 20 167/79 H 100 08/05/18 07:01 96 16 95 08/05/18 04:00 98.4 F 96 18 137/65 99 Weight Admit Weight 94 lb 11.2 oz Weight 99 lb 5 oz Most Recent Monitor Data Heart Rate from ECG 89 NIBP 111/61 NIBP BP-Mean 77 Respiration from ECG 25 SpO2 95 I&O: 08/04/18 08/05/18 08/06/18 06:59 06:59 06:59 Intake Total 660 950 Output Total 800 1000 Balance -140 -50 Result Diagrams: 08/05/18 06:19 08/05/18 06:19 Phys Exam - Physical Examination HEENT: PERRLA, sclera anicteric Neck: no JVD, supple Respiratory: no wheezing, no rales rhonchi+ Cardiovascular: RRR, no significant murmur Gastrointestinal: soft, non-tender, positive bowel sounds Musculoskeletal: no edema, pulses present Neurological: non-focal, moves all 4 limbs Dx/Plan (1) NAVARRO (acute kidney injury) Code(s): N17.9 - ACUTE KIDNEY FAILURE, UNSPECIFIED Status: Acute (2) Septic shock Code(s): A41.9 - SEPSIS, UNSPECIFIED ORGANISM; R65.21 - SEVERE SEPSIS WITH SEPTIC SHOCK Status: Resolved (3) UTI (urinary tract infection) Status: Acute Qualifiers: Urinary tract infection type: acute cystitis Hematuria presence: with hematuria Qualified Code(s): N30.01 - Acute cystitis with hematuria (4) PNA (pneumonia) Code(s): J18.9 - PNEUMONIA, UNSPECIFIED ORGANISM Status: Acute Qualifiers: Pneumonia type: due to unspecified organism (5) Sacral decubitus ulcer, stage IV Code(s): L89.154 - PRESSURE ULCER OF SACRAL REGION, STAGE 4 Status: Chronic Comment: POA (6) Acute encephalopathy Code(s): G93.40 - ENCEPHALOPATHY, UNSPECIFIED Status: Resolved Comment: Now improved, likely at baseline (7) COPD exacerbation Code(s): J44.1 - CHRONIC OBSTRUCTIVE PULMONARY DISEASE W (ACUTE) EXACERBATION Status: Acute (8) Chronic anemia Code(s): D64.9 - ANEMIA, UNSPECIFIED Status: Chronic (9) Dementia Code(s): F03.90 - UNSPECIFIED DEMENTIA WITHOUT BEHAVIORAL DISTURBANCE Status: Chronic Qualifiers: Dementia type: unspecified type Dementia behavioral disturbance: without behavioral disturbance Qualified Code(s): F03.90 - Unspecified dementia without behavioral disturbance - Plan renal function is slowly improving, encourage po intake -: likely dc plan in am with q3day renal function testing -: on cefepime, nebs, zetia and remeron -: will switch to vantin in am for 3 more days * . Review of Systems - Medications/Allergies Allergies/Adverse Reactions: Allergies Allergy/AdvReac Type Severity Reaction Status Date / Time codeine Allergy Verified 08/01/18 22:38 metronidazole [From Flagyl] Allergy Verified 08/01/18 22:38 morphine Allergy Verified 08/01/18 22:38 nitrofurantoin Allergy Verified 08/01/18 22:38 [From Macrobid] penicillin Allergy Verified 08/01/18 22:38 Sulfa (Sulfonamide AdvReac Intermediate Verified 08/01/18 22:38 Antibiotics) Medications: Current Medications Acetaminophen (Tylenol) 650 mg PO Q4H PRN PRN Reason: Headache/Fever/Mild Pain (1-3) Last Admin: 08/05/18 00:56 Dose: 650 mg Acetaminophen (Tylenol) 650 mg AK Q4H PRN PRN Reason: Headache/Fever/Mild Pain (1-3) Albuterol/Ipratropium (Duoneb) 3 ml NEB [id number] [facility] Last Admin: 08/05/18 07:01 Dose: 3 ml Cyanocobalamin (Vitamin B-12) 2,000 mcg PO DAILY [facility] Last Admin: 08/05/18 08:29 Dose: 2,000 mcg Ezetimibe (Zetia) 10 mg PO DAILY [facility] Last Admin: 08/05/18 08:29 Dose: 10 mg Enoxaparin Sodium (Lovenox) 30 mg SC 0900 [facility] Last Admin: 08/05/18 08:29 Dose: 30 mg Famotidine (Pepcid) 20 mg PO QPM [facility] Last Admin: 08/04/18 20:20 Dose: 20 mg Cefepime HCl 1 gm/ Sodium (Chloride) 100 mls @ 200 mls/hr IVPB 1600 [facility] Last Admin: 08/04/18 15:08 Dose: 100 mls Mirtazapine (Remeron) 7.5 mg PO HS [facility] Last Admin: 08/04/18 20:20 Dose: 7.5 mg Ondansetron HCl (Zofran) 4 mg IVP Q6H PRN PRN Reason: Nausea/Vomiting Last Admin: 08/02/18 18:19 Dose: 4 mg
[2018-08-05] MEDS: Cefepime 1 GM in Sodium Chloride 0.9% 100 ML IVPB SCH (16:33)
--- NOTE | 2018-08-05 17:43 | PRG ---
DATE OF SERVICE: 08/05/2018 OBJECTIVE: VITAL SIGNS: The patient noted with the following vital signs; afebrile. Temperature 97.7, pulse 92, respiratory rate 20, O2 saturation is 100%, and blood pressure 167/79. HEENT: Unremarkable. CARDIOVASCULAR SYSTEM: First and second heart sounds were heard. RESPIRATORY SYSTEM: Clear to auscultation. DIGESTIVE SYSTEM: Revealed a benign abdomen. EXTREMITIES: No peripheral edema. SKIN: No new gross rash. LYMPHATICS: No peripheral lymphadenopathy. LABORATORY INVESTIGATION: Showed a hemoglobin of 9.7. Chemistry showed a creatinine of 3.23 with a BUN of 53. IMPRESSION: 1. Acute on chronic kidney disease, which seems to have improved. 2. Anemia. PLAN: 1. Continue current renal supportive measures. 2. Further management will be dependent on the clinical course. Job ID: [id number]
[2018-08-05] MEDS: Mirtazapine 15 MG TAB PO SCH (20:00)
[2018-08-05] MEDS: Famotidine 20 MG TAB PO SCH (20:00)
[2018-08-05] MEDS: Ondansetron PF 4 MG/2 ML Vial IVP PRN (20:53)
[2018-08-06 07:06] LABS: #Lymphocytes 0.6 thou/uL (1.20-3.40); #Monocytes 0.5 thou/uL (0.11-0.59); #Neutrophils 9.4 thou/uL (1.40-6.50); %Eosinophils 0.3 % (0.0-10.0); %Lymphocytes 5.4 % (21.0-51.0); %Monocytes 4.3 % (0.0-10.0); Hemoglobin 11.6 g/dL (12.0-16.0); Mean Corpuscular HGB CONC 31.6 g/dL (32.0-36.0); Mean Corpuscular Hemoglobin 32.9 pg (27.0-31.0); Platelet Count 339 thou/uL (130-400); RBC Distribution Width 14.3 % (11.5-14.5); Red Blood Cell (RBC) Count 3.52 mill/uL (4.20-5.40); White Blood Cell (WBC) Count 10.5 thou/uL (4.8-10.8)
[2018-08-06 07:25] LABS: Anion Gap 14 mmol/L (10-20); BUN (Urea Nitrogen) 51 mg/dL (9.8-20.1); Calc. Creatinine Clearance 9 mL/min (70-130); Calcium 9.1 mg/dL (7.8-10.44); Carbon Dioxide 22 mmol/L (23-31); Chloride 108 mmol/L (98-107); Estimated GFR-MDRD 13; Glucose 132 mg/dL (83-110); Potassium 4.9 mmol/L (3.5-5.1); Sodium 139 mmol/L (136-145)
[2018-08-06 08:14] VITALS: TEMP 97.3
[2018-08-06] MEDS: Enoxaparin Sodium 30 MG/0.3 ML SYRINGE SC SCH (08:22)
[2018-08-06] MEDS: Ezetimibe 10 MG TAB PO SCH (08:48)
[2018-08-06] MEDS: Cyanocobalamin (Vitamin B-12) 1,000 MCG TAB PO SCH (08:49)
[2018-08-06 08:59] LABS: Actual Bicarbonate (HCO3a) 22.8 mEq/L (22-28); Analyzer IN Cardio ER; Base Excess (BEa) -8.6 mEq/L (-2.0 to +3.0); Carboxyhemoglobin (COHb) 0.3 gm% (0.0-3.0); Hemoglobin (Hb) 12.6 g/dL (12.0-16.0); O2 Tension (PaO2) 73.1 mmHg (> 60.0); Potassium - ABG Lab 4.72 mmol/L (3.70-5.30)
[2018-08-06 09:00] LABS: pH, Arterial 7.07 (7.35-7.45)
[2018-08-06] MEDS ORDERED: CEFPODOXIME PROXETIL PO SCH (09:00)
[2018-08-06 09:01] LABS: ALV-art Gradient 26.665 (0-20); CO2 Tension 79.9 mmHg (35.0-45.0); Puncture Site RBRACH
--- NOTE | 2018-08-06 09:58 | RAD ---
PORTABLE CHEST ONE VIEW: Date: 08-06-18 Time: 8:44 a.m. History: Respiratory distress. FINDINGS/IMPRESSION: Comparison is made with exam dated 08-01-18. There has been interval removal of the right internal jugular central line. The heart size is normal. The aorta is tortuous. There are small bilateral pleural effusions, right larger than left, with adj acent atelectatic changes. POS: OFF
[2018-08-06 11:58] VITALS: BP 98/60
--- NOTE | 2018-08-06 12:57 | PDOC.PN ---
- Subjective Encounter Start Date: 08/06/18 Encounter Start Time: 12:00 Subjective: is obtunded and in resp distress - Objective Resuscitation Status - Order Detail: 08/06/18 09:31 Resuscitation Status Routine Resuscitation Status: DNAR: NO Resuscitation Discussed with: confirmed with pt's daughter Rafaela and son Loc DUNN Reviewed: Yes Vital Signs & Weight: Vital Signs (12 hours) Temp Pulse Resp BP Pulse Ox 08/06/18 11:57 140 H 24 H 98/60 97 08/06/18 08:13 97.3 F L 146 H 20 127/69 93 L 08/06/18 08:12 112 H 08/06/18 08:09 94 L 08/06/18 06:41 99 20 97 Weight Admit Weight 94 lb 11.2 oz Weight 99 lb 5 oz Most Recent Monitor Data Heart Rate from ECG 89 NIBP 111/61 NIBP BP-Mean 77 Respiration from ECG 25 SpO2 95 I&O: 08/05/18 08/06/18 08/07/18 06:59 06:59 06:59 Intake Total 950 240 Output Total 1000 1150 Balance -50 -910 Result Diagrams: 08/06/18 06:31 08/06/18 06:31 Phys Exam - Physical Examination agonal breathing HEENT: sclera anicteric dry mucosa Neck: no JVD, supple Respiratory: no wheezing rhonchi+ Cardiovascular: RRR, no significant murmur Gastrointestinal: soft, no distention, positive bowel sounds Musculoskeletal: no edema, pulses present Neurological: non-focal Dx/Plan (1) NAVARRO (acute kidney injury) Code(s): N17.9 - ACUTE KIDNEY FAILURE, UNSPECIFIED Status: Acute (2) Septic shock Code(s): A41.9 - SEPSIS, UNSPECIFIED ORGANISM; R65.21 - SEVERE SEPSIS WITH SEPTIC SHOCK Status: Resolved (3) UTI (urinary tract infection) Status: Acute Qualifiers: Urinary tract infection type: acute cystitis Hematuria presence: with hematuria Qualified Code(s): N30.01 - Acute cystitis with hematuria (4) PNA (pneumonia) Code(s): J18.9 - PNEUMONIA, UNSPECIFIED ORGANISM Status: Acute Qualifiers: Pneumonia type: due to unspecified organism (5) Sacral decubitus ulcer, stage IV Code(s): L89.154 - PRESSURE ULCER OF SACRAL REGION, STAGE 4 Status: Chronic Comment: POA (6) Acute encephalopathy Code(s): G93.40 - ENCEPHALOPATHY, UNSPECIFIED Status: Resolved Comment: Now improved, likely at baseline (7) COPD exacerbation Code(s): J44.1 - CHRONIC OBSTRUCTIVE PULMONARY DISEASE W (ACUTE) EXACERBATION Status: Acute (8) Chronic anemia Code(s): D64.9 - ANEMIA, UNSPECIFIED Status: Chronic (9) Dementia Code(s): F03.90 - UNSPECIFIED DEMENTIA WITHOUT BEHAVIORAL DISTURBANCE Status: Chronic Qualifiers: Dementia type: unspecified type Dementia behavioral disturbance: without behavioral disturbance Qualified Code(s): F03.90 - Unspecified dementia without behavioral disturbance (10) Acute respiratory failure with hypoxia Code(s): J96.01 - ACUTE RESPIRATORY FAILURE WITH HYPOXIA Status: Acute - Plan patient physically declined and went into resp failure this am -: discussed extensively with daughter about poor prognosis -: family finally decided to go into [facility]pt hospice with [facility] -: will be dc to inpt hospice here in the hospital * . Review of Systems - Medications/Allergies Allergies/Adverse Reactions: Allergies Allergy/AdvReac Type Severity Reaction Status Date / Time codeine Allergy Verified 08/01/18 22:38 metronidazole [From Flagyl] Allergy Verified 08/01/18 22:38 morphine Allergy Verified 08/01/18 22:38 nitrofurantoin Allergy Verified 08/01/18 22:38 [From Macrobid] penicillin Allergy Verified 08/01/18 22:38 Sulfa (Sulfonamide AdvReac Intermediate Verified 08/01/18 22:38 Antibiotics) Medications: Current Medications Acetaminophen (Tylenol) 650 mg PO Q4H PRN PRN Reason: Headache/Fever/Mild Pain (1-3) Last Admin: 08/05/18 00:56 Dose: 650 mg Acetaminophen (Tylenol) 650 mg [place] Q4H PRN PRN Reason: Headache/Fever/Mild Pain (1-3) Albuterol/Ipratropium (Duoneb) 3 ml NEB [id number] [facility] Last Admin: 08/06/18 06:41 Dose: 3 ml Cefpodoxime Proxetil (Vantin) 100 mg PO BID [facility] Cyanocobalamin (Vitamin B-12) 2,000 mcg PO DAILY [facility] Last Admin: 08/06/18 08:49 Dose: Not Given Ezetimibe (Zetia) 10 mg PO DAILY [facility] Last Admin: 08/06/18 08:48 Dose: Not Given Enoxaparin Sodium (Lovenox) 30 mg SC 0900 [facility] Last Admin: 08/06/18 08:22 Dose: 30 mg Famotidine (Pepcid) 20 mg PO QPM [facility] Last Admin: 08/05/18 20:00 Dose: 20 mg Mirtazapine (Remeron) 7.5 mg PO HS [facility] Last Admin: 08/05/18 20:00 Dose: 7.5 mg Ondansetron HCl (Zofran) 4 mg IVP Q6H PRN PRN Reason: Nausea/Vomiting Last Admin: 08/05/18 20:53 Dose: 4 mg
[2018-08-06 14:44] VITALS: BMI 15.5
--- NOTE | 2018-08-06 17:12 | DIS ---
DATE OF ADMISSION: 08/01/2018 DATE OF DISCHARGE: 08/06/2018 DISCHARGE DISPOSITION: Inpatient hospice by [facility]. PRIMARY DISCHARGE DIAGNOSES: Acute kidney injury, septic shock, urinary tract infection, and pneumonia. SECONDARY DISCHARGE DIAGNOSES: Chronic sacral decubitus ulcer stage IV present on admission, acute encephalopathy, underlying dementia, chronic obstructive pulmonary disease exacerbation on admission, resolving chronic anemia, and acute respiratory failure with hypoxia on admission. PROCEDURES DONE DURING HOSPITALIZATION: Chest x-ray done showed right lower lobe airspace opacity concerning for infection. Blood cultures x2, no growth. Urine culture grew Proteus mirabilis, resistant to quinolones, ampicillin, and Macrobid. She had a white count of 16 on the day of admission with discharge number of 10. Initial creatinine was 4.32 with discharge number of 3.3. Initial BUN was 65 with discharge number of 51. Cortisol was 11.1. BNP 253. Troponin I 0.13, CK-MB 2.2, and albumin was 3.1. DISCHARGE MEDICATIONS: Please note, the patient is going to inpatient hospice and she will be on nebulizers, morphine, Tylenol p.r.n. for comfort care. ALLERGIES: ALLERGIC TO CODEINE, FLAGYL, MORPHINE, NITROFURANTOIN, PENICILLIN, AND SULFA. BRIEF COURSE DURING HOSPITALIZATION: The patient initially was brought to emergency room on the from [facility] for hypoxia with coughing spells and difficulty breathing. She was also septic and initial blood pressure was 80 /60. The patient was admitted to ICU and was briefly on pressors. She was on broad-spectrum IV antibiotics. Please note, the patient has very poor functional status and has been on the bed for almost a year now. She also had sacral decubitus stage IV on arrival. The patient's overall prognosis was guarded from the beginning and the daughter wanted her to be full code then. She had acute kidney injury and demand ischemia. The patient was gently hydrated during her stay for the first 48 hours, for which she responded well. The patient then went into volume overload and her IV fluids had to be stopped. She was closely monitored on medical floor. She was encouraged and counseled to eat more, but the patient was progressively declining due to advanced age, underlying multiple medical issues. This morning, the patient became obtunded and went into respiratory failure with pH dropping down to 7.0 with pCO2 of 79. Extended discussions were held with the patient's daughter at bedside Ms. Russo and family had decided to place her in inpatient hospice. [facility] was consulted, and the patient will be switched over to inpatient hospice status here. Dr. Young will be assuming care. Please see a [id number] documentation for the day of discharge on [employer]. Job ID: [id number] MTDD
== END 2018-08-06 14:56 | disposition hospice, inpatient (51) | DRG 871 ==
LOC: ERS 11:23 → CCU 21:56 → T4-A 08-02 15:51
PROVIDERS: ADMIT Internal Medicine; ATTEND Internal Medicine
DX: A41.59 Other Gram-negative sepsis (principal); L89.154 Pressure ulcer of sacral region, stage 4; R65.21 Severe sepsis with septic shock; J18.9 Pneumonia, unspecified organism; J96.01 Acute respiratory failure with hypoxia; J44.1 Chronic obstructive pulmonary disease with (acute) exacerbation; N17.9 Acute kidney failure, unspecified; G93.40 Encephalopathy, unspecified; I24.8 Other forms of acute ischemic heart disease; N30.01 Acute cystitis with hematuria; A41.9 Sepsis, unspecified organism; Z96.649 Presence of unspecified artificial hip joint; E78.5 Hyperlipidemia, unspecified; Z87.440 Personal history of urinary (tract) infections; I48.0 Paroxysmal atrial fibrillation; C55 Malignant neoplasm of uterus, part unspecified; Z92.3 Personal history of irradiation; Z79.899 Other long term (current) drug therapy; Z79.891 Long term (current) use of opiate analgesic; Z88.5 Allergy status to narcotic agent; Z88.2 Allergy status to sulfonamides; Z88.0 Allergy status to penicillin; Z87.891 Personal history of nicotine dependence; D64.9 Anemia, unspecified
CPT/HCPCS: 36415; 71045; 80048; 80053; 80202; 81003; 81015; 82533; 82553; 82805; 83605; 83735; 83880; 84100; 84484; 85025; 87040; 87077; 87086; 87186; 90471; 90670; 93005; 93010; 94640; A4353; G0009; G8978-GP-CM; G8979-GP-CL; G8996-GN-CJ; G8996-GN-CK; G8997-GN-CI; G8997-GN-CJ; J0692; J1650; J1956; J2405; J2920; J2930; J3370; J3475; J7050; J7620

== ENCOUNTER 2018-08-06 15:05 | Inpatient (IN) | payer OTHER ==
[2018-08-06] MEDS ORDERED: chlorproMAZINE HCl 25 MG in Sodium Chloride 0.9% 50 ML IVPB PRN (15:50)
[2018-08-06] MEDS ORDERED: Zolpidem Tartrate 5 MG TAB PO PRN (15:50)
[2018-08-06] MEDS ORDERED: Loperamide HCl 2 MG CAP PO PRN (15:50)
[2018-08-06] MEDS ORDERED: Ondansetron PF 4 MG/2 ML Vial IVP PRN (15:50)
[2018-08-06] MEDS ORDERED: Milk Of Magnesia 30 ML UDCUP PO PRN (15:50)
[2018-08-06] MEDS ORDERED: Senokot 8.6 MG TAB PO PRN (15:50)
[2018-08-06] MEDS ORDERED: diphenhydrAMINE 25 MG CAP PO PRN (15:50)
[2018-08-06] MEDS ORDERED: Lorazepam 1 MG TAB PO PRN ×2 (15:50)
[2018-08-06] MEDS ORDERED: Ondansetron ODT 4 MG TAB PO PRN (15:50)
[2018-08-06] MEDS ORDERED: Lorazepam 2 MG/ML VIAL SLOW IVP PRN (15:50)
[2018-08-06] MEDS ORDERED: diphenhydrAMINE 50 MG/ML VIAL IVP PRN (15:50)
[2018-08-06] MEDS ORDERED: Promethazine HCl 25 MG SUPP PR PRN (15:50)
[2018-08-06] MEDS ORDERED: Haloperidol Lactate 5 MG/ML VIAL SLOW IVP PRN (15:50)
[2018-08-06] MEDS ORDERED: chlorproMAZINE HCl 50 MG/2 ML AMP IM PRN ×2 (15:50)
[2018-08-06] MEDS ORDERED: Hyoscyamine Sulfate SL 0.125 mg Tablet SL PRN (15:50)
[2018-08-06] MEDS ORDERED: Scopolamine 1.5 mg/72 hour Patch TOP PRN (16:32)
[2018-08-06] MEDS ORDERED: HYDROmorphone 2 MG/ML VIAL SLOW IVP PRN (16:45)
[2018-08-06] MEDS ORDERED: Acetaminophen 650 MG Suppository PR PRN (16:47)
[2018-08-06 21:07] VITALS: BP 109/70
[2018-08-07] MEDS: Lorazepam 2 MG/ML VIAL SLOW IVP PRN ×2 (00:14→03:56)
[2018-08-07 02:56] VITALS: BMI 16.2
--- NOTE | 2018-08-08 15:52 | DIS ---
DATE OF ADMISSION: 08/06/2018 DATE OF DISCHARGE: 08/07/2018 ADMIT DIAGNOSES: Severe sepsis, organ failure, acute renal failure, pneumonia, and urinary tract infection. SECONDARY DIAGNOSIS: Chronic sacral stage 4 decubitus. HOSPITAL COURSE: The patient was an 87-year-old female, who came in to the hospital and found to be in sepsis, hypotensive, tachycardic with pneumonia, severe urinary tract infection, and had metabolic encephalopathy with metabolic acidosis. She has a history of dementia and COPD. She was initially treated through the hospital aggressively. She was failing to respond to the treatments and family proceeded to enter discussions about hospice since the patient was not responding well to the treatments, and they agreed to follow the patient's wishes and not keep her artificially alive, and she was transitioned from the hospital service into the hospice service. The patient the next day, a peaceful . Family was at bedside to do the [facility]. Hospice nurse and surfacer were on-site. There were no questions made by family at that time. Job ID: [id number]
== END 2018-08-07 04:15 | disposition expired | DRG 951 ==
LOC: T4-A 15:05
PROVIDERS: ADMIT Internal Medicine; ATTEND Internal Medicine
DX: Z51.5 Encounter for palliative care (principal); A41.9 Sepsis, unspecified organism; L89.154 Pressure ulcer of sacral region, stage 4; R65.21 Severe sepsis with septic shock; J18.9 Pneumonia, unspecified organism; G93.41 Metabolic encephalopathy; N17.9 Acute kidney failure, unspecified; N39.0 Urinary tract infection, site not specified; J44.1 Chronic obstructive pulmonary disease with (acute) exacerbation; E87.2 Acidosis; Z66 Do not resuscitate; Z88.0 Allergy status to penicillin; Z88.2 Allergy status to sulfonamides; Z88.8 Allergy status to other drugs, medicaments and biological substances; F03.90 Unspecified dementia, unspecified severity, without behavioral disturbance, psychotic disturbance, mood disturbance, and anxiety
CPT/HCPCS: J1200; J1630; J2060; J3230; J7050